=== PATIENT | female | born 1990 | race Caucasian/White ===

== ENCOUNTER 2016-05-19 14:59 | Outpatient (CLI) | payer MEDICAID ==
--- NOTE | 2016-05-19 17:23 | Non Stress Test Report ---
Non Stress Test Datetime Report Generated by CPN: 05/19/2016 17:23 DEMOGRAPHIC EGA NST: 36.3 INDICATION Indication for Study: Ordered by Provider MONITORING Monitor Explained: Monitor Explained; Test Explained; Patient Verbalized Understanding Time on Monitor: 05/19/2016 16:13 Time off Monitor: 05/19/2016 17:19 NST Duration: 66 NST INTERVENTIONS NST Interventions: PO Hydration; Reposition Patient Physician Notified NST: Dr. Calloway BABY A: [id number] BABY A Movement : Present Contraction Frequency : none FHR Baseline : 130 Accelerations : 15X15 Decelerations : None Variability : Moderate 6-25bpm NST Review: Meets Criteria for Reactive NST NST Review and Verified By : Johnson Littlejohn RN NST Results: Reactive NST REPORT Report Trigger: Send Report
--- NOTE | 2016-05-19 20:47 | L&D Discharge Summary ---
OB Discharge Summary Datetime Report Generated by CPN: 05/19/2016 20:47 DISCHARGE DIAGNOSIS Diagnosis/Symptoms: Reassuring Surveillance - Annotate Details Diagnoses/Symptoms Other: IUGR- Not in Labor DIET/ACTIVITY/RESTRICTIONS Diet: Regular Activity: Normal Activity TEACHING/INSTRUCTIONS/REFERRALS Instructions Given To: Pt Instructions Understood: Patient Verbalized Understanding; Support Person Verbalized Understanding Referrals: None Educational Materials- Other: Kick Counts DISCHARGE INFORMATION Discharged AMA: No Discharge Date/Time: 05/19/2016 17:29 Discharged To: Home Discharge Provider Name: DrConchis Calloway Accompanied By: Spouse Discharge Method: Ambulatory Condition: Stable FOLLOW UP INFORMATION Follow Up With: [facility] Follow Up On: As Scheduled Follow Up Phone Number: [facility] -
== END 2016-05-19 17:29 | disposition home or self-care (01) ==
LOC: LC 14:59
PROVIDERS: ATTEND Obstetrics & Gynecology
PROC: 4A1HXCZ Monitoring of Products of Conception, Cardiac Rate, External Approach (ICD-10-PCS; principal; 2016-05-19)
DX: O36.5930 Maternal care for other known or suspected poor fetal growth, third trimester, not applicable or unspecified (principal); Z3A.36 36 weeks gestation of pregnancy
CPT/HCPCS: 59025; 76815

== ENCOUNTER 2016-05-23 07:01 | Inpatient (IN) | payer MEDICAID ==
[2016-05-23] MEDS ORDERED: RINGERS SOLUTION,LACTATED 300 ML IV ONE (07:25)
[2016-05-23] MEDS ORDERED: OXYTOCIN/NORMAL SALINE 1,000 ML IV PRN ×2 (07:25→15:02)
[2016-05-23 08:09] LABS: ABSOLUTE EOSINOPHILS # (AUTO) 0.1 10^3/uL (0.0-0.6); ABSOLUTE LYMPHOCYTES (AUTO) 1.8 10^3/uL (0.5-4.7); ABSOLUTE MONOCYTES (AUTO) 0.5 10^3/uL (0.1-1.4); BASOPHILS % (AUTO) 0.2 % (0-2); EOSINOPHILS % (AUTO) 1.2 % (0-6); HEMATOCRIT 29.1 % (36.0-47.0); HGB HCT DIFFERENCE 0.9; MEAN CORPUSCULAR HEMOGLOBIN 29.3 pg (27.0-33.4); MEAN CORPUSCULAR HGB CONC 34.5 g/dL (32.0-36.0); MEAN CORPUSCULAR VOLUME 85 fl (80-97); MONOCYTES % (AUTO) 6.4 % (3-13); RED BLOOD COUNT 3.42 10^6/uL (3.72-5.28); RED CELL DISTRIBUTION WIDTH 13.2 % (11.5-14.0); SEGMENTED NEUTROPHILS % (AUTO) 71.2 % (42-78); WHITE BLOOD COUNT 8.4 10^3/uL (4.0-10.5)
[2016-05-23] MEDS ORDERED: LIDOCAINE 1% INJ-PF (10 MG/ML) 30 ML SDV ONE (08:37)
[2016-05-23] MEDS ORDERED: MISOPROSTOL 0.2 MG TABLET ONE (08:37)
[2016-05-23] MEDS ORDERED: OXYTOCIN/NORMAL SALINE 20 UNIT/1,000 ML RTUINJ ONE (08:38)
[2016-05-23 09:34] LABS: APPEARANCE,URINE SLIGHTLY-CLOUDY; BILIRUBIN,URINE NEGATIVE (NEGATIVE); GLUCOSE, URINE NEGATIVE (NEGATIVE); KETONES,URINE NEGATIVE (NEGATIVE); LEUKOCYTE ESTERASE,URINE MODERATE (NEGATIVE); NITRITE,URINE NEGATIVE (NEGATIVE); PROTEIN,URINE NEGATIVE (NEGATIVE); URINE SPECIFIC GRAVITY 1.003; UROBILINOGEN,URINE NEGATIVE mg/dL (<2.0)
[2016-05-23 09:54] LABS: URINE BARBITURATES SCREEN NEGATIVE; URINE METHADONE SCREEN NEGATIVE; URINE OPIATES LOW NEGATIVE; URINE PHENCYCLIDINE SCREEN NEGATIVE
--- NOTE | 2016-05-23 10:32 | L&D Progress Notes ---
PROGRESS NOTES Datetime Report Generated by CPN: 05/23/2016 10:31 PROGRESS NOTE Impression Other: IUGR Procedures: Artificial ROM Plan: Induction Informed Consent Obtained: Induction of Labor Comment: cont pit induction VAGINAL EXAM Dilatation: 3 Effacement: 90 Station: -2 MEMBRANES Membranes: Ruptured FETUS A Monitoring: External US FHR Category: Category I SIGNATURE SIGNATURE: ,[id number] SIGNATURE: [id number] Signature: with User ID: [email or web address]
[2016-05-23] MEDS ORDERED: EPHEDRINE SULFATE INJ 50 MG/1 ML AMPULE ONE (10:56)
[2016-05-23] MEDS ORDERED: FENTANYL/BUPIVACAINE/NS/PF 200 MCG/100 ML RTUINJ EPI ONE (10:56)
[2016-05-23] MEDS ORDERED: BUPIVACAINE HCL 0.25 % INJ/PF (2.5 MG/1 ML) 30 ML VIAL ONE (10:57)
[2016-05-23] MEDS: RINGERS SOLUTION,LACTATED 1,000 ML IV PRN ×2 (11:03→11:08)
--- NOTE | 2016-05-23 13:11 | L&D Progress Notes ---
PROGRESS NOTES Datetime Report Generated by CPN: 05/23/2016 13:10 PROGRESS NOTE Impression: Normal Progression of Labor Plan: Continue Present Management; Induction Comment: Pt comfortable with epidural. Pit at 20 mu.-cont. FETUS A FHR Category: Category I FETUS C SIGNATURE: [id number];[id number] Signature: with User ID: [email or web address]
[2016-05-23] MEDS ORDERED: ACETAMINOPHEN WITH CODEINE #3 TABLET PO PRN ×2 (15:02)
[2016-05-23] MEDS ORDERED: ZOLPIDEM TARTRATE 5 MG TABLET PO PRN (15:02)
[2016-05-23] MEDS ORDERED: DIPH/PERTUSS(ACELL)/TETANUS VAC/PF 0.5 ML SYR (>=10YO) IM PRN (15:02)
[2016-05-23] MEDS ORDERED: BENZOCAINE/MENTHOL AEROSOL SPRAY 56 ML TOP PRN (15:02)
[2016-05-23] MEDS ORDERED: DIBUCAINE 1% OINTMENT 28 GM TP PRN (15:02)
[2016-05-23] MEDS ORDERED: MEASLES,MUMPS&RUBELLA VACC/PF 0.5 ML VIAL SUBCUT PRN (15:02)
--- NOTE | 2016-05-23 18:20 | Admission Physical ---
Datetime Report Generated by CPN: 05/23/2016 18:20 CURRENT ADMISSION Hx Assessment: The History has been Reviewed and is Current Chief Complaint: Scheduled Induction of Labor Indication for Induction: IUGR Admit Plan: Initiate Labor Induction Protocol ALLERGIES Medication Allergies: No Medication Allergies: No Known Allergies (05/23/2016) Medication Allergies: No Known Allergies (05/16/2014) Latex: No Latex Allergies OBSTETRICAL HISTORY EDC: 06/13/2016 00:00 : 2 Para: 1 Term: 1 : 0 SAB: 0 IAB: 0 Ectopic: 0 Livin Cesareans: 0 VBACs: 0 Multiple Births: 0 Gestational Diabetes: No Rh Sensitization: No Incompetent Cervix: No NICK: No Infertility: No ART Treatment: No Uterine Anomaly: No IUGR: Yes Hx Previous C/S: No Macrosomia: Yes Hx Loss/Stillborn: No PIH: No Hx : No Placenta Previa/Abruption: No Depression/PP Depression: No PTL/PROM: No Post Hemorrhage: No Current Procedures: Ultrasound; NST SEE RECORDS Alcohol: No Marijuana : No Cocaine: No Other Illicit Drugs: No Cigarettes: Never Smoker. [id number] MEDICAL HISTORY Diabetes: No Blood Transfusion: No Pulmonary Disease (Asthma, TB): No Breast Disease: No Hypertension: No Classer Surgery: No Heart Disease: No Hosp/Surgery: Yes Autoimmune Disorder: No Anesthetic Complications: No Kidney Disease: No Abnormal Pap Smear: No Neuro/Epilepsy: No Psychiatric Disorders: No Other Medical Diseases: No Hepatitis/Liver Disease: No Significant Family History: No Varicosities/Phlebitis: No Trauma/Violence : No Thyroid Dysfunction: No Medical History Comments: CHILDBIRTH INFECTIOUS HISTORY Gonorrhea: No Genital Herpes: No Chlamydia: No Tuberculosis: No Syphilis: No Hepatitis: No HIV/AIDS Exposure: No Rash or Viral Illness: No HPV: No PHYSICAL EXAM General: Normal HEENT: Normal Neurologic: Normal Thyroid: Normal Heart: Normal Lungs: Normal Breast: Normal Back: Normal Abdomen: Normal Genitourinary Exam: Normal Extremities: Normal DTRs: Normal Pelvic Type: Adequate Physical Exam Comments: pelvis proven to 9 pounds VAGINAL EXAM Dilatation: 3 Effacement: 90 Station: -2 MEMBRANES Membranes: Ruptured FETUS A EGA: 37.0 Monitoring: External US FHR Category: Category I Admit Comment: pit induction-epidural when desires PLANS FOR LABOR AND DELIVERY Labor and Delivery: None Pain Management: Epidural Feeding Preference: Breast Benefit of Breast Feed Discussed: Yes Circumcision: N/A INFORMED CONSENT Informed Consent Obtained: Induction of Labor Signature: with User ID: [email or web address]
[2016-05-23] MEDS: FERROUS SULFATE 325 MG TABLET PO SCH (18:32)
[2016-05-23] MEDS: DOCUSATE SODIUM 100 MG CAPSULE PO SCH (18:33)
[2016-05-23] MEDS: IBUPROFEN 800 MG TABLET PO SCH (21:36)
[2016-05-24] MEDS: IBUPROFEN 800 MG TABLET PO SCH ×3 (05:06→21:15)
[2016-05-24 07:35] LABS: HEMATOCRIT 28.2 % (36.0-47.0); HEMOGLOBIN 9.6 g/dL (12.0-15.5); HGB HCT DIFFERENCE 0.6; MEAN CORPUSCULAR HGB CONC 34.1 g/dL (32.0-36.0); MEAN CORPUSCULAR VOLUME 85 fl (80-97); RED BLOOD COUNT 3.31 10^6/uL (3.72-5.28); RED CELL DISTRIBUTION WIDTH 13.2 % (11.5-14.0); WHITE BLOOD COUNT 10.7 10^3/uL (4.0-10.5)
[2016-05-24] MEDS: PRENATAL VITAMIN W-O CA NO5/FE FUMARATE/FA CAPSULE PO SCH (09:18)
[2016-05-24] MEDS: FERROUS SULFATE 325 MG TABLET PO SCH ×2 (09:19→17:39)
[2016-05-24] MEDS: DOCUSATE SODIUM 100 MG CAPSULE PO SCH ×2 (09:19→17:38)
[2016-05-24] MEDS: SENNOSIDES/DOCUSATE 8.6-50 MG 1 EACH TABLET PO SCH (09:19)
--- NOTE | 2016-05-24 09:40 | PDOC PROGRESS REPORT ---
Subjective-OB Subjective: Post Delivery Day: 26 year old. Denies any needs at this time s/p vaginal delivery ff@u-1 mild lochia well offers no complaints anticipate Physical Exam (OB) Vital Signs: Temp Pulse Resp BP Pulse Ox 97.7 F 80 16 121/70 100 05/24/16 08:08 05/24/16 08:08 05/24/16 08:08 05/24/16 08:08 05/24/16 08:08 Intake & Output 05/23/16 05/24/16 05/25/16 06:59 06:59 06:59 Intake Total 500 Balance 500 Weight 74.9 kg - Lochia Lochia Amount: Scant < 10 ml Lochia Color: Rubra/Red - Abdomen Description: Tender, Soft Hernia Present: No Fundal Description: Firm, Midline Fundal Height: u/u - u/2 Objective-Diagnostic Laboratory: 05/24/16 07:08 05/24/16 07:08 WBC 10.7 H RBC 3.31 L Hgb 9.6 L Hct 28.2 L MCV 85 MCH 29.0 MCHC 34.1 RDW 13.2 Plt Count 202
--- NOTE | 2016-05-24 18:01 | L&D General Admission ---
General Admit Datetime Report Generated by CPN: 05/24/2016 18:00 INFORMATION Patient Age: 26 (03/30/2016 08:18:QS system process) EDC: 06/13/2016 00:00 (05/19/2016 15:18:Estelle Mora RN) : 2 (05/19/2016 15:18:KANG Chong) Para: 1 (05/19/2016 15:18:KANG Chong) Term: 1 (05/19/2016 15:18:KANG Chong) : 0 (05/19/2016 15:18:KANG Chong) Spontaneous Abortions: 0 (05/19/2016 15:18:KANG Chong) Induced Abortions: 0 (05/19/2016 15:18:KANG Chong) Livin (05/19/2016 15:18:KANG Chong) Cesareans: 0 (05/19/2016 15:18:KANG Chong) VBACs: 0 (05/19/2016 15:18:Lou Carballo [facility]) Ectopic: 0 (05/19/2016 15:18:[facility], [facility]) Multiple Births: 0 (05/19/2016 15:18:[facility]) Baby, Number in Womb: 1 (05/19/2016 15:18:[facility]) CARE Primary Automatic Shirring Machine Operator: [facility] (05/19/2016 15:18:Estelle Mora RN) Month of 1st Visit: October (05/19/2016 15:18:[facility], [facility]) Adequate Care: Yes (05/19/2016 15:18:Estelle Mora RN) Prepregnancy Weight (lb): 130 (05/19/2016 15:18:Estelle Mora RN) Prepregnancy Weight (kg): 59.1 (05/19/2016 15:18:QS system process) Height (in): 65 (05/23/2016 07:23:QS system process) ALLERGIES Medication Allergy: No (05/19/2016 15:18:Estelle Mora RN) Medication Allergies: No Known Allergies (05/23/2016) (05/23/2016 07:23:QS system process) Latex Allergy: No Latex Allergies (05/19/2016 15:18:Estelle Mora RN) COMMUNICATION Primary Language: Sami (05/19/2016 15:18:Estelle Mora RN) Medical Tx Preferred Language: Sami (05/19/2016 15:18:KANG Chong) Communication Barrier(s): None (05/19/2016 15:18:KANG Chong) DEMOGRAPHICS Address: [facility] [place] [address] (03/30/2016 08:18:QS system process) Zipcode: [address] (03/30/2016 08:18:QS system process) Home (03/30/2016 08:18:QS system process) N: [id number] (03/30/2016 08:18:QS system process) Next of Kin Name: NAVEED MACIAS (03/30/2016 08:18:QS system process) Next of Kin (03/30/2016 08:18:QS system process) Next of Kin Relationship: SPO (03/30/2016 08:18:QS system process) Date of : 1990 (03/30/2016 08:18:QS system process) Marital Status: (03/30/2016 08:18:QS system process) Sex: Female (03/30/2016 08:18:QS system process) Race: (03/30/2016 08:18:QS system process) Ethnicity: Non- or (03/30/2016 08:18:QS system process) Sabianist: Other (03/30/2016 08:18:QS system process) FOB Involved: Yes (05/19/2016 15:18:KANG Chong) DRUG AND ALCOHOL USE Alcohol: No (05/19/2016 15:18:Estelle Mora RN) Cigarettes: Never Smoker. [id number] (05/19/2016 15:18:Estelle Mora RN) Marijuana: No (05/19/2016 15:18:Estelle Mora RN) Cocaine: No (05/19/2016 15:18:Estelle Mora RN) Other Illicit Drugs: No (05/19/2016 15:18:Estelle Mora RN) VACCINE HISTORY Influenza Vaccine: No (05/19/2016 15:18:Estelle Mora RN) Pneumococcal Vaccine: No (05/19/2016 15:18:Estelle Mora RN) Tetanus Vaccine: Yes (05/19/2016 15:18:Estelle Mora RN) Tdap Vaccine: Yes (05/19/2016 15:18:Estelle Mora RN) Hepatitis B Vaccine: Yes (05/19/2016 15:18:Estelle Mora RN) Family Educator: Davin Ortega (05/19/2016 15:18:Estelle Mora RN) Feeding Preference: Breast (05/19/2016 15:18:Estelle Mora RN) Benefit of Breast Feed Discussed: Yes (05/19/2016 15:18:Estelle Mora RN) Circumcision: N/A (05/19/2016 15:18:Estelle Mora RN) Classes Attended: No (05/19/2016 15:18:Estelle Mora RN) Tubal Ligation: No (05/19/2016 15:18:Estelle Mora RN) Tubal Authorization Signed: N/A (05/19/2016 15:18:Estelle Mora RN) Consent: N/A (05/19/2016 15:18:Estelle Mora RN) Consent Signed: N/A (05/19/2016 15:18:Estelle Mora RN) Pain Management Plans: Epidural (05/19/2016 15:18:Estelle Mora RN) Plans for Labor and Delivery: None (05/19/2016 15:18:Estelle Mora RN) Support Person: Naveed Macias (05/19/2016 15:18:Estelle Mora RN) Support Person Relationship: (05/19/2016 15:18:Estelle Mora RN) Cultural/Spritual Practice: No (05/19/2016 15:18:Estelle Mora RN) Spir/Cult Dietary Needs: No (05/19/2016 15:18:Estelle Mora RN) LIVING SITUATION/DISCHARGE PLAN Living Arrangements: House (05/19/2016 15:18:Estelle Mora RN) Adequate Access to:: Electric; Heat; Refrigeration; Plumbing/Running water; Phone; Transportation (05/19/2016 15:18:Estelle Mora RN) WIC Program: Yes (05/19/2016 15:18:Estelle Mora RN) Discharge Corrugator Machine Operator Person: Naveed Macias (05/19/2016 15:18:Estelle Mora RN) Person to Help after Discharge: Naveed Macias (05/19/2016 15:18:Estelle Mora RN) Currently Using Commun Resources: Yes (05/19/2016 15:18:Estelle Mora RN) Outside Agency/Bead Picker: Yes (05/19/2016 15:18:Estelle Mora RN) Car Seat for Discharge: Yes (05/19/2016 15:18:Estelle Mora RN) Adoption Requested: No (05/19/2016 15:18:Estelle Mora RN) Pt Contact w/infant Post : N/A (05/19/2016 15:18:Estelle Mora RN) LABS Blood Type: A Positive (05/19/2016 15:18:Lou Carballo, RN) Antibody Screen: negative (05/19/2016 15:18:Lou Carballo, RN) Hemoglobin: 9.6 L (05/24/2016 07:08:QS system process) Hematocrit: 28.2 L (05/24/2016 07:08:QS system process) MCV: 85 (05/24/2016 07:08:QS system process) Group Beta Strep: negative (05/19/2016 15:18:Lou Carballo RN) Gonorrhea: Negative (05/19/2016 15:18:Lou Carballo, RN) Chlamydia: Negative (05/19/2016 15:18:Lou Carballo, RN) RPR/VDRL: Nonreactive (05/19/2016 15:18:Lou Carballo, RNC) Hepatitis B: Negative (05/19/2016 15:18:Lou Carballo, RN) Rubella: Immune (05/19/2016 15:18:Lou Carballo, RNC) OB/PREVIOUS HISTORY Previous Procedures: Ultrasound; NST (05/19/2016 15:18:Clotilde Sow RN) Current Procedures: Ultrasound; NST (05/19/2016 15:18:Clotilde Sow RN) History of Previous : No (05/19/2016 15:18:Clotilde Sow RN) History of Gestational Diabetes: No (05/19/2016 15:18:Clotilde Sow RN) History of PIH: No (05/19/2016 15:18:Clotilde Sow RN) History of Incompetent Cervix: No (05/19/2016 15:18:Clotilde Sow RN) History of Placenta Previa/Abrup: No (05/19/2016 15:18:Clotilde Sow RN) History of Macrosomia: Yes (05/19/2016 15:18:Clotilde Sow RN) History of IUGR: Yes (05/19/2016 15:18:Clotilde Sow RN) History of Hemorrhage: No (05/19/2016 15:18:Clotilde Sow RN) History of Loss/Stillborn: No (05/19/2016 15:18:Clotilde Sow RN) History of : No (05/19/2016 15:18:Clotilde Sow RN) History of D (Rh) Sensitization: No (05/19/2016 15:18:Clotilde Sow RN) History Recurrent Loss/Stillborn: No (05/19/2016 15:18:Clotilde Sow RN) History Depression/PP Depression: No (05/19/2016 15:18:Clotilde Sow RN) History of Uterine Anomaly/NICK: No (05/19/2016 15:18:Clotilde Sow RN) History of Infertility: No (05/19/2016 15:18:Clotilde Sow RN) History of ART Treatment: No (05/19/2016 15:18:Clotilde Sow RN) History of NICK: No (05/19/2016 15:18:Clotilde Sow RN) MEDICAL HISTORY Med Hx Diabetes: No (05/19/2016 15:18:Clotilde Sow RN) Med Hx Hypertension: No (05/19/2016 15:18:Clotilde Sow RN) Med Hx Heart Disease: No (05/19/2016 15:18:Clotilde Sow RN) Med Hx Autoimmune Disorder: No (05/19/2016 15:18:Clotilde Sow RN) Med Hx Kidney Disease/UTI: No (05/19/2016 15:18:Clotilde Sow RN) Med Hx Neurologic/Epilepsy: No (05/19/2016 15:18:Clotilde Sow RN) Med Hx Psychiatric Disorders: No (05/19/2016 15:18:Clotilde Sow RN) Med Hx Hepatitis/Liver Disease: No (05/19/2016 15:18:Clotilde Sow RN) Med Hx Varicosities/Phlebitis: No (05/19/2016 15:18:Clotilde Sow RN) Med Hx Thyroid Dysfunction: No (05/19/2016 15:18:Clotilde Sow RN) Med Hx Trauma/Violence: No (05/19/2016 15:18:Clotilde Sow RN) Med Hx Blood Transfusion: No (05/19/2016 15:18:Clotilde Sow RN) Med Hx Pulmonary (Asthma,TB): No (05/19/2016 15:18:Clotilde Sow RN) Med Hx Breast: No (05/19/2016 15:18:Clotilde Sow RN) Med Hx CERTIFIED NEURODIAGNOSTIC TECHNOLOGIST Surgery: No (05/19/2016 15:18:Clotilde Sow RN) Med Hx Hospitalization/Surgery: Yes (05/19/2016 15:18:Clotilde Sow RN) Med Hx Anesthetic Complications: No (05/19/2016 15:18:Clotilde Sow RN) Med Hx Abnormal Pap Smear: No (05/19/2016 15:18:Clotilde Sow RN) Other Medical Diseases: No (05/19/2016 15:18:Clotilde Sow RN) Med Hx Significant Family Hx: No (05/19/2016 15:18:Clotilde Sow, YASMANI) Details of Med/Surg Hx: CHILDBIRTH (05/19/2016 15:18:Clotilde Sow RN) INFECTIOUS HISTORY Inf Hx Gonorrhea: No (05/19/2016 15:18:Clotilde Sow RN) Inf Hx Chlamydia: No (05/19/2016 15:18:Clotilde Sow RN) Inf Hx Syphilis: No (05/19/2016 15:18:Clotilde Sow RN) Inf Hx HIV/AIDS: No (05/19/2016 15:18:Clotilde Sow RN) Inf Hx Human Papilloma Virus: No (05/19/2016 15:18:Clotilde Sow RN) Inf Hx Pt/Partner Genital Herpes: No (05/19/2016 15:18:Clotilde Sow RN) Inf Hx Tuberculosis/Exposure: No (05/19/2016 15:18:Clotilde Sow RN) Inf Hx Hepatitis B,C: No (05/19/2016 15:18:Clotilde Sow RN) Inf Hx Rash or Viral Illness: No (05/19/2016 15:18:Clotilde Sow RN) GENETIC HISTORY Gen Hx Age >=35 at [place]: No (05/19/2016 15:18:Clotilde Sow RN) Gen Hx Thalassemia: No (05/19/2016 15:18:Clotilde Sow RN) Gen Hx Congenital Heart Defect: No (05/19/2016 15:18:Clotilde Sow RN) Gen Hx Neural Tube Defect: No (05/19/2016 15:18:Clotilde Sow RN) Gen Hx Down's Syndrome: No (05/19/2016 15:18:Clotilde Sow RN) Gen Hx Chema-Sachs: No (05/19/2016 15:18:Clotilde Sow RN) Gen Hx Roberto: No (05/19/2016 15:18:Clotilde Sow RN) Gen Hx Familial Dysautonomia: No (05/19/2016 15:18:Clotilde Sow RN) Gen Hx Sickle Cell Disease/Trait: No (05/19/2016 15:18:Clotilde Sow RN) Gen Hx Hemophilia/Blood Disorder: No (05/19/2016 15:18:Clotilde Sow RN) Gen Hx Muscular Dystrophy: No (05/19/2016 15:18:Clotilde Sow RN) Gen Hx Cystic Fibrosis: No (05/19/2016 15:18:Clotilde Sow RN) Gen Hx Huntingtons Chorea: No (05/19/2016 15:18:Clotilde Sow RN) Gen Hx Mental Retardation/Autism: No (05/19/2016 15:18:Clotilde Sow RN) Gen Hx Tested for Fragile X: No (05/19/2016 15:18:Clotilde Sow RN) Gen Hx Other Inher/Chromosomal: No (05/19/2016 15:18:Clotilde Swo RN) Gen Hx Maternal Metabolic DO: No (05/19/2016 15:18:Clotilde Sow RN) Gen Hx Pt Father or FOB Defect: No (05/19/2016 15:18:Clotilde Sow RN) Gen Hx Other Genetic History: No (05/19/2016 15:18:Clotilde Sow RN) Gen Hx Drugs/Meds since LMP: No (05/19/2016 15:18:Clotilde Sow RN)
--- NOTE | 2016-05-24 18:02 | L&D General Admission ---
General Admit Datetime Report Generated by CPN: 05/24/2016 18:00 INFORMATION Patient Age: 26 (03/30/2016 08:18:QS system process) EDC: 06/13/2016 00:00 (05/19/2016 15:18:Estelle Mora RN) : 2 (05/19/2016 15:18:KANG Chong) Para: 1 (05/19/2016 15:18:KANG Chong) Term: 1 (05/19/2016 15:18:KANG Chong) : 0 (05/19/2016 15:18:KANG Chong) Spontaneous Abortions: 0 (05/19/2016 15:18:KANG Chong) Induced Abortions: 0 (05/19/2016 15:18:KANG Chong) Livin (05/19/2016 15:18:KANG Chong) Cesareans: 0 (05/19/2016 15:18:KANG Chong) VBACs: 0 (05/19/2016 15:18:Lou Carballo [facility]) Ectopic: 0 (05/19/2016 15:18:[facility], [facility]) Multiple Births: 0 (05/19/2016 15:18:[facility]) Baby, Number in Womb: 1 (05/19/2016 15:18:[facility]) CARE Primary Administration Vice President: [employer] [facility] (05/19/2016 15:18:Estelle Mora RN) Month of 1st Visit: October (05/19/2016 15:18:[facility], [facility]) Adequate Care: Yes (05/19/2016 15:18:Estelle Mora RN) Prepregnancy Weight (lb): 130 (05/19/2016 15:18:Estelle Mora RN) Prepregnancy Weight (kg): 59.1 (05/19/2016 15:18:QS system process) Height (in): 65 (05/23/2016 07:23:QS system process) ALLERGIES Medication Allergy: No (05/19/2016 15:18:Estelle Mora RN) Medication Allergies: No Known Allergies (05/23/2016) (05/23/2016 07:23:QS system process) Latex Allergy: No Latex Allergies (05/19/2016 15:18:Estelle Mora RN) COMMUNICATION Primary Language: Thai (05/19/2016 15:18:Estelle Mora RN) Medical Tx Preferred Language: Thai (05/19/2016 15:18:KANG Chong) Communication Barrier(s): None (05/19/2016 15:18:KANG Chong) DEMOGRAPHICS Address: [facility] [place] [address] (03/30/2016 08:18:QS system process) Zipcode: [address] (03/30/2016 08:18:QS system process) Home (03/30/2016 08:18:QS system process) N: [id number] (03/30/2016 08:18:QS system process) Next of Kin Name: NAVEED MACIAS (03/30/2016 08:18:QS system process) Next of Kin (03/30/2016 08:18:QS system process) Next of Kin Relationship: SPO (03/30/2016 08:18:QS system process) Date of : 1990 (03/30/2016 08:18:QS system process) Marital Status: (03/30/2016 08:18:QS system process) Sex: Female (03/30/2016 08:18:QS system process) Race: (03/30/2016 08:18:QS system process) Ethnicity: Non- or (03/30/2016 08:18:QS system process) Mandaen: Other (03/30/2016 08:18:QS system process) FOB Involved: Yes (05/19/2016 15:18:KANG Chong) DRUG AND ALCOHOL USE Alcohol: No (05/19/2016 15:18:Estelle Mora RN) Cigarettes: Never Smoker. [id number] (05/19/2016 15:18:Estelle Mora RN) Marijuana: No (05/19/2016 15:18:Estelle Mora RN) Cocaine: No (05/19/2016 15:18:Estelle Mora RN) Other Illicit Drugs: No (05/19/2016 15:18:Estelle Mora RN) VACCINE HISTORY Influenza Vaccine: No (05/19/2016 15:18:Estelle Mora RN) Pneumococcal Vaccine: No (05/19/2016 15:18:Estelle Mora RN) Tetanus Vaccine: Yes (05/19/2016 15:18:Estelle Mora RN) Tdap Vaccine: Yes (05/19/2016 15:18:Estelle Mora RN) Hepatitis B Vaccine: Yes (05/19/2016 15:18:Estelle Mora RN) Informatics Specialist: Davin Ortega (05/19/2016 15:18:Estelle Mora RN) Feeding Preference: Breast (05/19/2016 15:18:Estelle Mora RN) Benefit of Breast Feed Discussed: Yes (05/19/2016 15:18:Estelle Mora RN) Circumcision: N/A (05/19/2016 15:18:Estelle Mora RN) Classes Attended: No (05/19/2016 15:18:Estelle Mora RN) Tubal Ligation: No (05/19/2016 15:18:Estelle Mora RN) Tubal Authorization Signed: N/A (05/19/2016 15:18:Estelle Mora RN) Consent: N/A (05/19/2016 15:18:Estelle Mora RN) Consent Signed: N/A (05/19/2016 15:18:Estelle Mora RN) Pain Management Plans: Epidural (05/19/2016 15:18:Estelle Mora RN) Plans for Labor and Delivery: None (05/19/2016 15:18:Estelle Mora RN) Support Person: Naveed Macias (05/19/2016 15:18:Estelle Mora RN) Support Person Relationship: (05/19/2016 15:18:Estelle Mora RN) Cultural/Spritual Practice: No (05/19/2016 15:18:Estelle Mora RN) Spir/Cult Dietary Needs: No (05/19/2016 15:18:Estelle Mora RN) LIVING SITUATION/DISCHARGE PLAN Living Arrangements: House (05/19/2016 15:18:Estelle Mora RN) Adequate Access to:: Electric; Heat; Refrigeration; Plumbing/Running water; Phone; Transportation (05/19/2016 15:18:Estelle Mora RN) WIC Program: Yes (05/19/2016 15:18:Estelle Mora RN) Discharge Engineering Faculty Member Person: Naveed Macias (05/19/2016 15:18:Estelle Mora RN) Person to Help after Discharge: Naveed Macias (05/19/2016 15:18:Estelle Mora RN) Currently Using Commun Resources: Yes (05/19/2016 15:18:Estelle Mora RN) Outside Agency/Hemodialysis Patient Care Specialist: Yes (05/19/2016 15:18:Estelle Mora RN) Car Seat for Discharge: Yes (05/19/2016 15:18:Estelle Mora RN) Adoption Requested: No (05/19/2016 15:18:Estelle Mora RN) Pt Contact w/infant Post : N/A (05/19/2016 15:18:Estelle Mora RN) LABS Blood Type: A Positive (05/19/2016 15:18:Lou Carballo, RN) Antibody Screen: negative (05/19/2016 15:18:Lou Carballo, RN) Hemoglobin: 9.6 L (05/24/2016 07:08:QS system process) Hematocrit: 28.2 L (05/24/2016 07:08:QS system process) MCV: 85 (05/24/2016 07:08:QS system process) Group Beta Strep: negative (05/19/2016 15:18:Lou Carballo RN) Gonorrhea: Negative (05/19/2016 15:18:Lou Carballo, RN) Chlamydia: Negative (05/19/2016 15:18:Lou Carballo, RN) RPR/VDRL: Nonreactive (05/19/2016 15:18:Lou Carballo, RNC) Hepatitis B: Negative (05/19/2016 15:18:Lou Carballo, RN) Rubella: Immune (05/19/2016 15:18:Lou Carballo, RNC) OB/PREVIOUS HISTORY Previous Procedures: Ultrasound; NST (05/19/2016 15:18:Clotilde Sow RN) Current Procedures: Ultrasound; NST (05/19/2016 15:18:Clotilde Sow RN) History of Previous : No (05/19/2016 15:18:Clotilde Sow RN) History of Gestational Diabetes: No (05/19/2016 15:18:Clotilde Sow RN) History of PIH: No (05/19/2016 15:18:Clotilde Sow RN) History of Incompetent Cervix: No (05/19/2016 15:18:Clotilde Sow RN) History of Placenta Previa/Abrup: No (05/19/2016 15:18:Clotilde Sow RN) History of Macrosomia: Yes (05/19/2016 15:18:Clotilde Sow RN) History of IUGR: Yes (05/19/2016 15:18:Clotilde Sow RN) History of Hemorrhage: No (05/19/2016 15:18:Clotilde Sow RN) History of Loss/Stillborn: No (05/19/2016 15:18:Clotilde Sow RN) History of : No (05/19/2016 15:18:Clotilde Sow RN) History of D (Rh) Sensitization: No (05/19/2016 15:18:Clotilde Sow RN) History Recurrent Loss/Stillborn: No (05/19/2016 15:18:Clotilde Sow RN) History Depression/PP Depression: No (05/19/2016 15:18:Clotilde Sow RN) History of Uterine Anomaly/NICK: No (05/19/2016 15:18:Clotilde Sow RN) History of Infertility: No (05/19/2016 15:18:Clotilde Sow RN) History of ART Treatment: No (05/19/2016 15:18:Clotilde Sow RN) History of NICK: No (05/19/2016 15:18:Clotilde Sow RN) MEDICAL HISTORY Med Hx Diabetes: No (05/19/2016 15:18:Clotilde Sow RN) Med Hx Hypertension: No (05/19/2016 15:18:Clotilde Sow RN) Med Hx Heart Disease: No (05/19/2016 15:18:Clotilde Sow RN) Med Hx Autoimmune Disorder: No (05/19/2016 15:18:Clotilde Sow RN) Med Hx Kidney Disease/UTI: No (05/19/2016 15:18:Clotilde Sow RN) Med Hx Neurologic/Epilepsy: No (05/19/2016 15:18:Clotilde Sow RN) Med Hx Psychiatric Disorders: No (05/19/2016 15:18:Coltilde Sow RN) Med Hx Hepatitis/Liver Disease: No (05/19/2016 15:18:Clotilde Sow RN) Med Hx Varicosities/Phlebitis: No (05/19/2016 15:18:Clotilde Sow RN) Med Hx Thyroid Dysfunction: No (05/19/2016 15:18:Clotilde Sow RN) Med Hx Trauma/Violence: No (05/19/2016 15:18:Clotilde Sow RN) Med Hx Blood Transfusion: No (05/19/2016 15:18:Clotilde Sow RN) Med Hx Pulmonary (Asthma,TB): No (05/19/2016 15:18:Clotilde Sow RN) Med Hx Breast: No (05/19/2016 15:18:Clotilde Sow RN) Med Hx COPPER PLATE LITHOGRAPHER Surgery: No (05/19/2016 15:18:Clotilde Sow RN) Med Hx Hospitalization/Surgery: Yes (05/19/2016 15:18:Clotilde Sow RN) Med Hx Anesthetic Complications: No (05/19/2016 15:18:Clotilde Sow RN) Med Hx Abnormal Pap Smear: No (05/19/2016 15:18:Clotilde Sow RN) Other Medical Diseases: No (05/19/2016 15:18:Clotilde Sow RN) Med Hx Significant Family Hx: No (05/19/2016 15:18:Clotilde Sow, YASMANI) Details of Med/Surg Hx: CHILDBIRTH (05/19/2016 15:18:Clotilde Sow RN) INFECTIOUS HISTORY Inf Hx Gonorrhea: No (05/19/2016 15:18:Clotilde Sow RN) Inf Hx Chlamydia: No (05/19/2016 15:18:Clotilde Sow RN) Inf Hx Syphilis: No (05/19/2016 15:18:Clotilde Sow RN) Inf Hx HIV/AIDS: No (05/19/2016 15:18:Clotilde Sow RN) Inf Hx Human Papilloma Virus: No (05/19/2016 15:18:Clotilde Sow RN) Inf Hx Pt/Partner Genital Herpes: No (05/19/2016 15:18:Clotilde Sow RN) Inf Hx Tuberculosis/Exposure: No (05/19/2016 15:18:Clotilde Sow RN) Inf Hx Hepatitis B,C: No (05/19/2016 15:18:Clotilde Sow RN) Inf Hx Rash or Viral Illness: No (05/19/2016 15:18:Clotilde Sow RN) GENETIC HISTORY Gen Hx Age >=35 at [place]: No (05/19/2016 15:18:Clotilde Sow RN) Gen Hx Thalassemia: No (05/19/2016 15:18:Clotilde Sow RN) Gen Hx Congenital Heart Defect: No (05/19/2016 15:18:Clotilde Sow RN) Gen Hx Neural Tube Defect: No (05/19/2016 15:18:Clotilde Sow RN) Gen Hx Down's Syndrome: No (05/19/2016 15:18:Clotilde Sow RN) Gen Hx Chema-Sachs: No (05/19/2016 15:18:Clotilde Sow RN) Gen Hx Roberto: No (05/19/2016 15:18:Clotilde Sow RN) Gen Hx Familial Dysautonomia: No (05/19/2016 15:18:Clotilde Sow RN) Gen Hx Sickle Cell Disease/Trait: No (05/19/2016 15:18:Clotilde Sow RN) Gen Hx Hemophilia/Blood Disorder: No (05/19/2016 15:18:Clotilde Sow RN) Gen Hx Muscular Dystrophy: No (05/19/2016 15:18:Clotilde Sow RN) Gen Hx Cystic Fibrosis: No (05/19/2016 15:18:Clotilde Sow RN) Gen Hx Huntingtons Chorea: No (05/19/2016 15:18:Clotilde Sow RN) Gen Hx Mental Retardation/Autism: No (05/19/2016 15:18:Clotilde Sow RN) Gen Hx Tested for Fragile X: No (05/19/2016 15:18:Clotilde Sow RN) Gen Hx Other Inher/Chromosomal: No (05/19/2016 15:18:Clotilde Sow RN) Gen Hx Maternal Metabolic DO: No (05/19/2016 15:18:Clotilde Sow RN) Gen Hx Pt Father or FOB Defect: No (05/19/2016 15:18:Clotilde Sow RN) Gen Hx Other Genetic History: No (05/19/2016 15:18:Clotilde Sow RN) Gen Hx Drugs/Meds since LMP: No (05/19/2016 15:18:Clotilde Sow RN)
--- NOTE | 2016-05-24 18:16 | L&D Care Plan ---
LD CARE PLANS Datetime Report Generated by CPKosta: 05/24/2016 18:15 Datetime: 05/23/2016 07:29 State: Risk For (KANG Chong) Related To: Labor and Delivery Process; Treatment and Procedures (KANG Chong) Goal(s): Patients Pain will be Assessed and Managed; Patient will Verbalize Adequate Relief of Pain or the Ability to [place] with Current Pain (KANG Chong) Interventions: Assess Pain Severity on Scale of 0 (None) to 5 (Severe); Assess Type, Location and Intensity of Pain Each Time Client Reports Discomfort and Notify Provider if Unusal Pain Develops; Encourage Proper Breathing and Relaxation Techniques; Offer Alternatives Such as Repositioning, Calm Environment, Massages, Diversional Activities, Ice Pack, Splinting, and Ambulation; Administer Analgesics as Ordered; Assist with Epidural Placement as Appropriate; Evaluate Therapeutic Effectiveness of Medication and Treatments (KANG Chong) Outcome: Patient will Report Absence or Relief of Pain Consistent with Established Pain Goal (KANG Chong) Status: Ongoing (KANG Chong) Outcome: Patient will have a Decrease in Signs and Symptoms of Discomfort (Lou Carballo, RN) Status: Ongoing (Lou Carballo, RN) Outcome: Pain will be Controlled During Procedures (Lou Carballo, RN) Status: Ongoing (Lou Carballo, RN) State: Actual (Lou Carballo, RN) Related To: Labor and Delivery Process; Fear of Unknown; Situational Crisis; Medical Interventions; Significant Life Event (Lou Carballo, [facility]) Goal(s): Patient will have Decreased Anxiety and be able to Function at Acceptable Levels (Lou Carballo, RN) Interventions: Assess Verbal and Nonverbal Behavioral Indicators of Anxiety; Assist Patient to Identify and Verbalize Symptoms of Anxiety; Identify and Demonstrate Techniques to Control Anxiety; Assist Patient with Coping Mechanisms to Manage Anxiety; Provide Theraputic Touch for the Patient; Explain to Patient, Using a Calm Reassuring Approach and Nonmedical Terms, All Activities, Procedures, and Concerns; Instruct Patient and Family about Post Discharge Care, Limitations, Symptoms to Report and Resources Available (Lou Carballo, [facility]) Outcome: Patient will Identify, Verbalize and Demonstrate Techniques to Control Anxiety (Lou Carballo, RN) Status: Ongoing (Lou Carballo, RN) Outcome: Patient's Posture, Facial Expressions, Gestures and Activity Level will Reflect Decreased Anxiety (Lou Carballo, RN) Status: Ongoing (Lou Carballo, RN) Outcome: Patient will Verbalize a Sense of Control and/or Acceptance of the Situation (Lou Carballo, RN) Status: Ongoing (Lou Carballo, RN) Outcome: Patient will Identify and Utilize Support Person (Lou Carballo, [facility]) Status: Ongoing (Lou Carballo, RN) Related To: Labor and Delivery Process; Treatment and Procedures; Feeding and Infant Care; Community Resources and Available Support Mechanisms (Lou Carballo, RN) Goal(s): Patient will Accurately Verbalize Understanding of Plan of Care and Treatment; Patient and Family will Accurately Verbalize Understanding of the Disease Process (Lou Carballo, RNC) Interventions: Assess Motivation and Willingness of Patient/Family to Learn; Assess Preferred Learning Mode: One to One Instruction, Reading, Videos, Group Discussion or Demonstration; Assess Barriers to Learning: Pain, Emotional State, Language Barrier, Cognitive Impairment, Visual or Hearing Deficits; Assess Patient and Family Knowledge of Disease Process, Medications and Treatment; Discuss Therapy and/or Treatment Options, Describe Rationale Behind Management, Therapy and Treatment Recommendations; Instruct Patient and Family on Signs and Symptoms to Report; Instruct Patient and Family on Medication Effects and Side Effects; Provide Appropriate and Timely Education Using Multiple Techniques; Provide Patient and Family with Support Group Information and Resources; Give Clear and Thorough Explanations and Demonstrations (Lou Carballo, RN) Outcome: Patient and Family will Verbalize Understanding of Condition, Treatment and Signs and Symptoms to Report (Lou Carballo, RNC) Status: Ongoing (Lou Carballo, RN) Outcome: Patient will Identify Perceived Learning Needs and Express Motivation to Learn (Lou Carballo, RN) Status: Ongoing (Lou Carballo, RN) Outcome: Patient will Verbalize Understanding of Desired Content, and/or Performs Desired Skill Prior to Discharge (Lou Carballo, RN) Status: Ongoing (Lou Carballo, RN) State: Risk For (Lou Carballo, YASMANI) Related To: Prolonged Labor or Induction; Invasive Procedures (Lou Carballo, RN) Goal(s): The Patient will be Free of Infection, Vital Signs Stable and Lab Work within Normal Parameters (Lou Carballo, RN) Interventions: Instruct and Reinforce Proper Handwashing, Hygiene, and Care Techniques to Patient and Family; Monitor Vital Signs; Monitor Patient for the Following Signs of Infection: Fever, Abdominal Tenderness, Unusual Discharge; Monitor Aminiotic Fluid, Urine and Lochia for Color and Odor; Observe Wounds, Incisions and Invasive Line Sites for Redness, Drainage and Edema; Assess IV Sites per Hospital Policy; Monitor Lab and Test Results and Notify Provider of Abnormal Findings; Assess Nutritional Status and Promote Good Nutrition (Lou Carballo, RN) Outcome: Patient will Remain Free of Infection (Lou Carballo, RN) Status: Ongoing (Lou Carballo, RN) Outcome: Infection will be Recognized Early to Allow for Prompt Treatment (Lou Carballo, RN) Status: Ongoing (Lou Carballo, RN) Outcome: Patient will have Vital Signs Within Expected Range (Lou Carballo, RN) Status: Ongoing (Lou Carballo, RN) Related To: Prolonged Labor or Induction (Lou Carballo, RN) Goal(s): Patient will Achieve and Maintain a Balanced Fluid Volume Status; Hemodynamically Stable (Lou Carballo, RN) Interventions: Monitor Vital Signs; Auscultate Breath Sounds; Monitor Patient for Skin Turgor, Mucous Membranes, Dry Skin, Weakness, Headaches and Confusion; Provide Oral Fluids as Ordered; Initiate and Maintain Intravenous Fluids as Ordered; Monitor Intake and Output as Indicated Per Patient Status; Accurately Measure Blood Loss; Monitor Lab and Test Results as Obtained and Notify Provider of Abnormal Findings; Monitor Patient's Weight (Lou Carballo, RN) Outcome: Patient will have Clear Lung Sounds (Lou Carballo, RN) Status: Ongoing (Lou Carballo, RN) Outcome: Patient will have Vital Signs within Expected Range (Lou Carballo, RN) Status: Ongoing (Lou Carballo, RN) Outcome: Urine Output will be within Expected Range (Lou Haris, RN) Status: Ongoing (Lou Carballo, RN) Outcome: Patient will have Minimal Generalized or Upper Extremity Edema (Lou Carballo, RN) Status: Ongoing (Lou Carballo, RN) State: Risk For (Lou Carballo, RN) Related To: Vaginal Delivery; Invasive Procedures (Lou Carballo, RN) Goal(s): Patient will Maintain Optimal Skin Integrity, Free of Breakdown, Injury or Infection (Lou Carballo, RN) Interventions: Complete Screening for Pressure Ulcer Risk and Initiate Protocol per Hospital Policy; Monitor Site of Skin Impairment for Color Changes, Redness, Swelling, Warmth, Pain or Other Signs of Infection; Encourage and Assist with Position Changes; Monitor Patient's Mobility Status; Provide Adequate Nutrition and Fluids; Teach Patient Appropriate Hygienic Care; Teach Patient/Family Skin Care Management (Lou Carballo, RN) Outcome: Patient will not have Evidence of Injury Such as Skin Breakdown, Scrapes, Cuts, or Bruising (Lou Carballo, RN) Status: Ongoing (Lou Carballo, RN) Outcome: Patient will Report Any Altered Sensation or Pain at Site of Skin Impairment (Lou Carballo, RN) Status: Ongoing (Lou Carballo, RN) Outcome: Patients Incisions and Wounds will be without Signs or Symptoms of Infection (Lou Carballo, RN) Status: Ongoing (Lou Carballo, RNC) Outcome: Patient will Demonstrate Understanding of Plan to Heal Skin and Prevent Reinjury and Verbalize Risk Factors (Lou Carballo, RN) Status: Ongoing (Lou Carballo, RN) State: Actual (Lou Carballo, RN) Related To: ; (Lou Carballo, RNC) Goal(s): Patient will have an Intake of Nutrients Sufficient to Meet Metabolic Needs (Lou Camp, RNC) Interventions: Nutritional Screening and Assessment per Hospital Policy; Consult Industrial Ecology Technician for Further Assessment and Recommendations Regarding Food Preferences and Nutritional Support; Allow Patient to Plan and Order Diet when Possible; Monitor Laboratory Values That Indicate Nutritional Well-being; Consult Bioinformatics Programmer for Nutritional Support Regarding Requirements; Document Actual Weight Initially and Weekly (Do Not Estimate); Encourage Patient Participation in Maintaining a Food Log as Indicated; Educate Patient on the Importance of Maintaining an Adequate Caloric Intake (KANG Chong) Outcome: Patient will Receive Adequate Calories and Fluid Volume to Meet Metabolic Needs (KANG Chong) Status: Ongoing (KANG Chong) Outcome: Patient will Select Foods or Meals that Support Adequate Nutrition (KANG Chong) Status: Ongoing (KANG Chong)
--- NOTE | 2016-05-24 20:21 | L&D Current Admission ---
Current Admit Datetime Report Generated by CPN: 05/24/2016 20:20 ADMISSION INFORMATION Current Admit Date/Time: 05/23/2016 07:17 (05/23/2016 08:32:Clotilde Sow RN) Reason for Admission: Induction of Labor (05/23/2016 08:32:Clotilde Sow RN) Chief Complaint: Scheduled Induction of Labor (05/23/2016 08:46:Clotilde Sow RN) EGA per Dates: 37.0 (05/23/2016 08:32:QS system process) Method of Arrival: Ambulatory (05/23/2016 08:32:Clotilde Sow RN) Reason for Induction: Intrauterine Growth Retardation (05/23/2016 08:32:Clotilde Sow RN) Records Available: Yes (05/23/2016 08:32:Clotilde Sow RN) General Admission Information: Reviewed (05/23/2016 08:32:Clotilde Sow RN) BELONGINGS/ADVANCED DIRECTIVES Valuables/Personal Effects: Cell Phone (05/23/2016 08:32:Clotilde Sow RN) Other Belongings: SEE VALUABLES CONSENT (05/23/2016 08:32:Clotilde Sow RN) Disposition of Belongings: Kept with Patient (05/23/2016 08:32:Clotilde Sow RN) Advance Direct for Healthcare: No, and Wants No Information (05/23/2016 08:32:Clotilde Sow RN) Indicate Intent if Not With Pt: RECEIVED IN REGISTRATION (05/23/2016 08:32:Clotilde Sow RN) Durable Power of Casting House Laborer: No (05/23/2016 08:32:Clotilde Sow RN) Living Will: No (05/23/2016 08:32:Clotilde Sow RN) Organ Donor: Yes (05/23/2016 08:32:Clotilde Sow RN) Pt Rights Information Given: Yes (05/23/2016 08:32:Clotilde Sow RN) Pt Understands Pt Rights: Yes (05/23/2016 08:32:Clotilde Sow RN) LEARNING ASSESSMENT Knowledge Level: Understands L_D Process; Understands Care Activities; Had Pre-Hospital Education; Understands Diagnosis (05/23/2016 08:32:Clotilde Sow RN) Barriers to Learning: None (05/23/2016 08:32:Clotilde Sow RN) Learning Readiness: Motivated (05/23/2016 08:32:Clotilde Sow RN) Learns Best By: 1 to 1 Instruction; Reading; Videos; Demonstration (05/23/2016 08:32:Clotilde Sow RN) Learning Needs: Labor and Delivery Process; Pain Management; Symptoms to Report; Treatment Plan; Medication; Diagnosis; Nutrition; Equipment; Infant Care; Community Resources (05/23/2016 08:32:Clotilde Sow RN) DOMESTIC VIOLANCE SCREENING Dom Viol Threatened/Hurt: No (05/23/2016 08:32:Clotilde Sow RN) Hx of Abuse/Neglect past 2yrs: No (05/23/2016 08:32:Clotilde Sow RN) Feel Unsafe Going Home: No (05/23/2016 08:32:Clotilde Sow RN) Addt'l Observ Indicating Abuse: No (05/23/2016 08:32:Clotilde Sow RN) Considered Personal Harm/Suicide: No (05/23/2016 08:32:Clotilde Sow RN) NUTRITIONAL/FUNCTIONAL SCREENING Problem with Appetite >5 Days: No (05/23/2016 08:32:Clotilde Sow RN) Chew/Swallow Difficulties: No (05/23/2016 08:32:Clotilde Sow RN) Inappropriate Wt Gain/Loss: No (05/23/2016 08:32:Clotilde Sow RN) Presence Skin Breakdown/Ulcer: No (05/23/2016 08:32:Clotilde Sow RN) Special Diet: No (05/23/2016 08:32:Clotilde Sow RN) Pt Requests District Associate Judge Visit: No (05/23/2016 08:32:Clotilde Sow RN) Hx of Any of the Following?: N/A (05/23/2016 08:32:Clotilde Sow RN) New Diagnosis of: N/A (05/23/2016 08:32:Clotilde Sow RN) Requires Assist w/Ambulation: No (05/23/2016 08:32:Clotilde Sow RN) Uses Assist Device to Ambulate: No (05/23/2016 08:32:Clotilde Sow RN) Pt Requires Help w/ADL's: No (05/23/2016 08:32:Clotilde Sow RN)
--- NOTE | 2016-05-24 20:22 | Delivery Summary ---
Del Sum A-C Datetime Report Generated by CPN: 05/24/2016 20:20 DELIVERY PERSONNEL DELIVERY PERSONNEL: [id number] Delivery Doctor:: Michelle Lucio MD Labor and Delivery Nurse:: Clotilde Sow RN Labor and Delivery Nurse:: KANG Chong Nursery Nurse:: Daphney Chiang RN Student Observers:: Jessica [facility] Salud [employer] Commercial Airplane Pilot/LICENSE ISSUER: Carole Reddy CNA II MATERNAL INFORMATION Delivery Anesthesia: Epidural Medications After Delivery: Pitocin Bolus-Please Comment; Pitocin Drip 20 Units/1000ml NSS Estimated Blood Loss (ml): 300 Maternal Complications: None Provider Comments: Pt progressed to over intact perineum of female infant with apgars 9 and 9. Head delivered OA. Shoulders and body delivered easily. MODEL MAKER FIBERGLASS/OP bulb suctioned. COrd clamped and cut. Placenta spont and intact. Mom and baby doing well. LABOR SUMMARY EDC: 06/13/2016 00:00 No. Babies in Womb: 1 Attempted: No Labor Anesthesia: Epidural LABOR INFORMATION Reason for Induction: Intrauterine Growth Retardation Onset of Labor: 05/23/2016 10:25 Complete Dilatation: 05/23/2016 14:37 Oxytocin: Induction Group B Beta Strep: negative Antibiotics # of Doses: 0 Steroids Given: None Reason Steroids Not Administered: Not Applicable MEMBRANES Membranes Rupture Method: Artificial Rupture of Membranes: 05/23/2016 10:25 Length of Rupture (hr): 4.35 Amniotic Fluid Color: Clear Amniotic Fluid Amount: Small Amniotic Fluid Odor: None STAGES OF LABOR Stage 1 hr: 4 Stage 1 min: 12 Stage 2 hr: 0 Stage 2 min: 9 Stage 3 hr: 0 Stage 3 min: 4 Total Time in Labor hr: 4 Total Time in Labor min: 25 VAGINAL DELIVERY Episiotomy: None Laceration Extension: N/A Laceration Type: None Laceration Repair: Not Applicable Sponge Count Correct: N/A Sharps Count Correct: N/A CSECTION DELIVERY Primary Indication: N/A Secondary Indication: N/A CSection Incidence: N/A Labor: N/A Elective: N/A CSection Incision: N/A BABY A INFORMATION Infant Delivery Date/Time: 05/23/2016 14:46 Method of Delivery: Vaginal Born in Route : No : N/A Forceps: N/A Vacuum Extraction: Successful Shoulder Dystocia : No PRESENTATION/POSITION BABY A Presentation: Cephalic Cephalic Presentation: Vertex Vertex Position: Right Occipital Anterior Breech Presentation: N/A PLACENTA INFORMATION BABY A Placenta Delivery Time : 05/23/2016 14:50 Placenta Method of Delivery: Spontaneous Placenta Status: Delivered SCORES BABY A Heart Rate 1 min: >100 bpm Resp Effort 1 min: Good Cry Reflex Irritability 1 min: Cough or Sneeze or Pulls Away Muscle Tone 1 min: Active Motion Color 1 min: Body [place], Extremities Blue Resuscitation Effort 1 min: Tactile Stimulation SCORE 1 MIN: 9 Heart Rate 5 min: >100 bpm Resp Effort 5 min: Good Cry Reflex Irritability 5 min: Cough or Sneeze or Pulls Away Muscle Tone 5 min: Active Motion Color 5 min: Body [place], Extremities Blue Resuscitation Effort 5 min: N/A SCORE 5 MIN: 9 Resuscitation Effort 10 min: N/A INFORMATION BABY A Gestational Age at Delivery: 37.0 Gestational Status: Early Term- 37- 38.6 Weeks Infant Outcome : Liveborn Infant Condition : Stable Infant Sex: Female IDENTIFICATION BABY A Infant Verification Date/Time: 05/23/2016 14:59 ID Band Number: [id number] Mother's Name Verified: Yes Infant RN Verifying : A Samra RN Additional Verifying Personnel: S [place] RNC WEIGHT/LENGTH BABY A Birthweight (gm): 2713 Weight (lb): 6 Weight (oz): 0 Infant Length (in): 18.00 Length (cm): 45.72 CORD INFORMATION BABY A No. Cord Vessels: 3 Nuchal Cord : N/A Cord Blood Taken: Yes-For Eval (Mom's Blood Type - or O+) Suction: None ASSESSMENT BABY A Infant Complications: None Physical Findings at Delivery: Puncture Wound from Scalp Electrode Infant Respirations: Appears Normal Skin to Skin: Yes Skin to Skin Time (min): 60 Remelt Operator/ALS Called : No Infant Care By: E Андрей RNC Transferred To: Remains with Mother BABY B INFORMATION : N/A SIGNATURES Signature: with User ID: [email or web address]
--- NOTE | 2016-05-24 20:22 | L&D General Admission ---
General Admit Datetime Report Generated by CPN: 05/24/2016 20:20 INFORMATION Patient Age: 26 (03/30/2016 08:18:QS system process) EDC: 06/13/2016 00:00 (05/19/2016 15:18:Estelle Mora RN) : 2 (05/19/2016 15:18:KANG Chong) Para: 1 (05/19/2016 15:18:KANG Chong) Term: 1 (05/19/2016 15:18:KANG Chong) : 0 (05/19/2016 15:18:KANG Chong) Spontaneous Abortions: 0 (05/19/2016 15:18:KANG Chong) Induced Abortions: 0 (05/19/2016 15:18:KANG Chong) Livin (05/19/2016 15:18:KANG Chong) Cesareans: 0 (05/19/2016 15:18:KANG Chong) VBACs: 0 (05/19/2016 15:18:Lou Carballo [facility]) Ectopic: 0 (05/19/2016 15:18:[facility], [facility]) Multiple Births: 0 (05/19/2016 15:18:[facility]) Baby, Number in Womb: 1 (05/19/2016 15:18:[facility]) CARE Primary Fishing Tackle Repairer: [employer] [facility] (05/19/2016 15:18:Estelle Mora RN) Month of 1st Visit: October (05/19/2016 15:18:[facility], [facility]) Adequate Care: Yes (05/19/2016 15:18:Estelle Mora RN) Prepregnancy Weight (lb): 130 (05/19/2016 15:18:Estelle Mora RN) Prepregnancy Weight (kg): 59.1 (05/19/2016 15:18:QS system process) Height (in): 65 (05/23/2016 07:23:QS system process) ALLERGIES Medication Allergy: No (05/19/2016 15:18:Estelle Mora RN) Medication Allergies: No Known Allergies (05/23/2016) (05/23/2016 07:23:QS system process) Latex Allergy: No Latex Allergies (05/19/2016 15:18:Estelle Mora RN) COMMUNICATION Primary Language: Romansh (05/19/2016 15:18:Estelle Mora RN) Medical Tx Preferred Language: Romansh (05/19/2016 15:18:KANG Chong) Communication Barrier(s): None (05/19/2016 15:18:KANG Chong) DEMOGRAPHICS Address: [facility] [place] [address] (03/30/2016 08:18:QS system process) Zipcode: [address] (03/30/2016 08:18:QS system process) Home (03/30/2016 08:18:QS system process) N: [id number] (03/30/2016 08:18:QS system process) Next of Kin Name: NAVEED MACIAS (03/30/2016 08:18:QS system process) Next of Kin (03/30/2016 08:18:QS system process) Next of Kin Relationship: SPO (03/30/2016 08:18:QS system process) Date of : 1990 (03/30/2016 08:18:QS system process) Marital Status: (03/30/2016 08:18:QS system process) Sex: Female (03/30/2016 08:18:QS system process) Race: (03/30/2016 08:18:QS system process) Ethnicity: Non- or (03/30/2016 08:18:QS system process) Scientologist: Other (03/30/2016 08:18:QS system process) FOB Involved: Yes (05/19/2016 15:18:KANG Chong) DRUG AND ALCOHOL USE Alcohol: No (05/19/2016 15:18:Estelle Mora RN) Cigarettes: Never Smoker. [id number] (05/19/2016 15:18:Estelle Mora RN) Marijuana: No (05/19/2016 15:18:Estelle Mora RN) Cocaine: No (05/19/2016 15:18:Estelle Mora RN) Other Illicit Drugs: No (05/19/2016 15:18:Estelle Mora RN) VACCINE HISTORY Influenza Vaccine: No (05/19/2016 15:18:Estelle Mora RN) Pneumococcal Vaccine: No (05/19/2016 15:18:Estelle Mora RN) Tetanus Vaccine: Yes (05/19/2016 15:18:Estelle Mora RN) Tdap Vaccine: Yes (05/19/2016 15:18:Estelle Mora RN) Hepatitis B Vaccine: Yes (05/19/2016 15:18:Estelle Mora RN) Log Operations Coordinator: Davin Ortega (05/19/2016 15:18:Estelle Mora RN) Feeding Preference: Breast (05/19/2016 15:18:Estelle Mora RN) Benefit of Breast Feed Discussed: Yes (05/19/2016 15:18:Estelle Mora RN) Circumcision: N/A (05/19/2016 15:18:Estelle Mora RN) Classes Attended: No (05/19/2016 15:18:Estelle Mora RN) Tubal Ligation: No (05/19/2016 15:18:Estelle Mora RN) Tubal Authorization Signed: N/A (05/19/2016 15:18:Etselle Mora RN) Consent: N/A (05/19/2016 15:18:Estelle Mora RN) Consent Signed: N/A (05/19/2016 15:18:Estelle Mora RN) Pain Management Plans: Epidural (05/19/2016 15:18:Estelle Mora RN) Plans for Labor and Delivery: None (05/19/2016 15:18:Estelle Mora RN) Support Person: Naveed Macias (05/19/2016 15:18:Estelle Mora RN) Support Person Relationship: (05/19/2016 15:18:Estelle Mora RN) Cultural/Spritual Practice: No (05/19/2016 15:18:Estelle Mora RN) Spir/Cult Dietary Needs: No (05/19/2016 15:18:Estelle Mora RN) LIVING SITUATION/DISCHARGE PLAN Living Arrangements: House (05/19/2016 15:18:Estelle Mora RN) Adequate Access to:: Electric; Heat; Refrigeration; Plumbing/Running water; Phone; Transportation (05/19/2016 15:18:Estelle Mora RN) WIC Program: Yes (05/19/2016 15:18:Estelle Mora RN) Discharge Rod Welder Person: Naveed Macias (05/19/2016 15:18:Estelle Mora RN) Person to Help after Discharge: Naveed Macias (05/19/2016 15:18:Estelle Mora RN) Currently Using Commun Resources: Yes (05/19/2016 15:18:Estelle Mora RN) Outside Agency/Keg Filler: Yes (05/19/2016 15:18:Estelel Mora RN) Car Seat for Discharge: Yes (05/19/2016 15:18:Estelle Mora RN) Adoption Requested: No (05/19/2016 15:18:Estelle Mora RN) Pt Contact w/infant Post : N/A (05/19/2016 15:18:Estelle Mora RN) LABS Blood Type: A Positive (05/19/2016 15:18:Lou Carballo, RN) Antibody Screen: negative (05/19/2016 15:18:Lou Carballo, RN) Hemoglobin: 9.6 L (05/24/2016 07:08:QS system process) Hematocrit: 28.2 L (05/24/2016 07:08:QS system process) MCV: 85 (05/24/2016 07:08:QS system process) Group Beta Strep: negative (05/19/2016 15:18:Lou Carballo RN) Gonorrhea: Negative (05/19/2016 15:18:Lou Carballo, RN) Chlamydia: Negative (05/19/2016 15:18:Lou Carballo, RN) RPR/VDRL: Nonreactive (05/19/2016 15:18:Lou Carballo, RNC) Hepatitis B: Negative (05/19/2016 15:18:Lou Carballo, RN) Rubella: Immune (05/19/2016 15:18:Lou Carballo, RNC) OB/PREVIOUS HISTORY Previous Procedures: Ultrasound; NST (05/19/2016 15:18:Clotilde Sow RN) Current Procedures: Ultrasound; NST (05/19/2016 15:18:Clotilde Sow RN) History of Previous : No (05/19/2016 15:18:Clotilde Sow RN) History of Gestational Diabetes: No (05/19/2016 15:18:Clotilde Sow RN) History of PIH: No (05/19/2016 15:18:Clotilde Sow RN) History of Incompetent Cervix: No (05/19/2016 15:18:Clotilde Sow RN) History of Placenta Previa/Abrup: No (05/19/2016 15:18:Clotilde Sow RN) History of Macrosomia: Yes (05/19/2016 15:18:Clotilde Sow RN) History of IUGR: Yes (05/19/2016 15:18:Clotilde Sow RN) History of Hemorrhage: No (05/19/2016 15:18:Clotilde Sow RN) History of Loss/Stillborn: No (05/19/2016 15:18:Clotilde Sow RN) History of : No (05/19/2016 15:18:Clotilde Sow RN) History of D (Rh) Sensitization: No (05/19/2016 15:18:Clotilde Sow RN) History Recurrent Loss/Stillborn: No (05/19/2016 15:18:Clotilde Sow RN) History Depression/PP Depression: No (05/19/2016 15:18:Clotilde Sow RN) History of Uterine Anomaly/NICK: No (05/19/2016 15:18:Clotilde Sow RN) History of Infertility: No (05/19/2016 15:18:Clotilde Sow RN) History of ART Treatment: No (05/19/2016 15:18:Clotilde Sow RN) History of NICK: No (05/19/2016 15:18:Clotilde Sow RN) MEDICAL HISTORY Med Hx Diabetes: No (05/19/2016 15:18:Clotilde Sow RN) Med Hx Hypertension: No (05/19/2016 15:18:Clotilde Sow RN) Med Hx Heart Disease: No (05/19/2016 15:18:Clotilde Sow RN) Med Hx Autoimmune Disorder: No (05/19/2016 15:18:Clotilde Sow RN) Med Hx Kidney Disease/UTI: No (05/19/2016 15:18:Clotilde Sow RN) Med Hx Neurologic/Epilepsy: No (05/19/2016 15:18:Clotilde Sow RN) Med Hx Psychiatric Disorders: No (05/19/2016 15:18:Clotilde Sow RN) Med Hx Hepatitis/Liver Disease: No (05/19/2016 15:18:Clotilde oSw RN) Med Hx Varicosities/Phlebitis: No (05/19/2016 15:18:Clotilde Sow RN) Med Hx Thyroid Dysfunction: No (05/19/2016 15:18:Clotilde Sow RN) Med Hx Trauma/Violence: No (05/19/2016 15:18:Clotilde Sow RN) Med Hx Blood Transfusion: No (05/19/2016 15:18:Clotilde Sow RN) Med Hx Pulmonary (Asthma,TB): No (05/19/2016 15:18:Clotilde Sow RN) Med Hx Breast: No (05/19/2016 15:18:Clotilde Sow RN) Med Hx LAB ENGINEER Surgery: No (05/19/2016 15:18:Clotilde Sow RN) Med Hx Hospitalization/Surgery: Yes (05/19/2016 15:18:Clotilde Sow RN) Med Hx Anesthetic Complications: No (05/19/2016 15:18:Clotilde Sow RN) Med Hx Abnormal Pap Smear: No (05/19/2016 15:18:Clotilde Sow RN) Other Medical Diseases: No (05/19/2016 15:18:Clotilde Sow RN) Med Hx Significant Family Hx: No (05/19/2016 15:18:Clotilde Sow, YASMANI) Details of Med/Surg Hx: CHILDBIRTH (05/19/2016 15:18:Clotilde Sow RN) INFECTIOUS HISTORY Inf Hx Gonorrhea: No (05/19/2016 15:18:Clotilde Sow RN) Inf Hx Chlamydia: No (05/19/2016 15:18:Clotilde Sow RN) Inf Hx Syphilis: No (05/19/2016 15:18:Clotilde Sow RN) Inf Hx HIV/AIDS: No (05/19/2016 15:18:Clotilde Sow RN) Inf Hx Human Papilloma Virus: No (05/19/2016 15:18:Clotilde Sow RN) Inf Hx Pt/Partner Genital Herpes: No (05/19/2016 15:18:Clotilde Sow RN) Inf Hx Tuberculosis/Exposure: No (05/19/2016 15:18:Clotilde Sow RN) Inf Hx Hepatitis B,C: No (05/19/2016 15:18:Clotilde Sow RN) Inf Hx Rash or Viral Illness: No (05/19/2016 15:18:Clotilde Sow RN) GENETIC HISTORY Gen Hx Age >=35 at [place]: No (05/19/2016 15:18:Clotilde Sow RN) Gen Hx Thalassemia: No (05/19/2016 15:18:Clotilde Sow RN) Gen Hx Congenital Heart Defect: No (05/19/2016 15:18:Clotilde Sow RN) Gen Hx Neural Tube Defect: No (05/19/2016 15:18:Clotilde Sow RN) Gen Hx Down's Syndrome: No (05/19/2016 15:18:Clotilde Sow RN) Gen Hx Chema-Sachs: No (05/19/2016 15:18:Clotilde Sow RN) Gen Hx Roberto: No (05/19/2016 15:18:Clotilde Sow RN) Gen Hx Familial Dysautonomia: No (05/19/2016 15:18:Clotilde Sow RN) Gen Hx Sickle Cell Disease/Trait: No (05/19/2016 15:18:Clotilde Sow RN) Gen Hx Hemophilia/Blood Disorder: No (05/19/2016 15:18:Clotilde Sow RN) Gen Hx Muscular Dystrophy: No (05/19/2016 15:18:Clotilde Sow RN) Gen Hx Cystic Fibrosis: No (05/19/2016 15:18:Clotilde Sow RN) Gen Hx Huntingtons Chorea: No (05/19/2016 15:18:Clotilde Sow RN) Gen Hx Mental Retardation/Autism: No (05/19/2016 15:18:Clotilde Sow RN) Gen Hx Tested for Fragile X: No (05/19/2016 15:18:Clotilde Sow RN) Gen Hx Other Inher/Chromosomal: No (05/19/2016 15:18:Clotilde Sow RN) Gen Hx Maternal Metabolic DO: No (05/19/2016 15:18:Clotilde Sow RN) Gen Hx Pt Father or FOB Defect: No (05/19/2016 15:18:Clotilde Sow RN) Gen Hx Other Genetic History: No (05/19/2016 15:18:Clotilde Sow RN) Gen Hx Drugs/Meds since LMP: No (05/19/2016 15:18:Clotilde Sow RN)
--- NOTE | 2016-05-24 20:22 | L&D Care Plan ---
LD CARE PLANS Datetime Report Generated by CPKosta: 05/24/2016 20:20 Datetime: 05/23/2016 07:29 State: Risk For (KANG Chong) Related To: Labor and Delivery Process; Treatment and Procedures (KANG Chong) Goal(s): Patients Pain will be Assessed and Managed; Patient will Verbalize Adequate Relief of Pain or the Ability to [place] with Current Pain (KANG Chong) Interventions: Assess Pain Severity on Scale of 0 (None) to 5 (Severe); Assess Type, Location and Intensity of Pain Each Time Client Reports Discomfort and Notify Provider if Unusal Pain Develops; Encourage Proper Breathing and Relaxation Techniques; Offer Alternatives Such as Repositioning, Calm Environment, Massages, Diversional Activities, Ice Pack, Splinting, and Ambulation; Administer Analgesics as Ordered; Assist with Epidural Placement as Appropriate; Evaluate Therapeutic Effectiveness of Medication and Treatments (KANG Chong) Outcome: Patient will Report Absence or Relief of Pain Consistent with Established Pain Goal (KANG Chong) Status: Ongoing (KANG Chong) Outcome: Patient will have a Decrease in Signs and Symptoms of Discomfort (Lou Carballo, RN) Status: Ongoing (Lou Carballo, RN) Outcome: Pain will be Controlled During Procedures (Lou Carballo, RN) Status: Ongoing (Lou Carballo, RN) State: Actual (Lou Carballo, RN) Related To: Labor and Delivery Process; Fear of Unknown; Situational Crisis; Medical Interventions; Significant Life Event (Lou aCrballo, [facility]) Goal(s): Patient will have Decreased Anxiety and be able to Function at Acceptable Levels (Lou Carballo, RN) Interventions: Assess Verbal and Nonverbal Behavioral Indicators of Anxiety; Assist Patient to Identify and Verbalize Symptoms of Anxiety; Identify and Demonstrate Techniques to Control Anxiety; Assist Patient with Coping Mechanisms to Manage Anxiety; Provide Theraputic Touch for the Patient; Explain to Patient, Using a Calm Reassuring Approach and Nonmedical Terms, All Activities, Procedures, and Concerns; Instruct Patient and Family about Post Discharge Care, Limitations, Symptoms to Report and Resources Available (Lou Carballo, [facility]) Outcome: Patient will Identify, Verbalize and Demonstrate Techniques to Control Anxiety (Lou Carballo, RN) Status: Ongoing (Lou Carballo, RN) Outcome: Patient's Posture, Facial Expressions, Gestures and Activity Level will Reflect Decreased Anxiety (Lou Carballo, RN) Status: Ongoing (Lou Carballo, RN) Outcome: Patient will Verbalize a Sense of Control and/or Acceptance of the Situation (Lou Carballo, RN) Status: Ongoing (Lou Carballo, RN) Outcome: Patient will Identify and Utilize Support Person (Lou Carballo, [facility]) Status: Ongoing (Lou Carballo, RN) Related To: Labor and Delivery Process; Treatment and Procedures; Feeding and Infant Care; Community Resources and Available Support Mechanisms (Lou Carballo, RN) Goal(s): Patient will Accurately Verbalize Understanding of Plan of Care and Treatment; Patient and Family will Accurately Verbalize Understanding of the Disease Process (Lou Carballo, RNC) Interventions: Assess Motivation and Willingness of Patient/Family to Learn; Assess Preferred Learning Mode: One to One Instruction, Reading, Videos, Group Discussion or Demonstration; Assess Barriers to Learning: Pain, Emotional State, Language Barrier, Cognitive Impairment, Visual or Hearing Deficits; Assess Patient and Family Knowledge of Disease Process, Medications and Treatment; Discuss Therapy and/or Treatment Options, Describe Rationale Behind Management, Therapy and Treatment Recommendations; Instruct Patient and Family on Signs and Symptoms to Report; Instruct Patient and Family on Medication Effects and Side Effects; Provide Appropriate and Timely Education Using Multiple Techniques; Provide Patient and Family with Support Group Information and Resources; Give Clear and Thorough Explanations and Demonstrations (Lou Carballo, RN) Outcome: Patient and Family will Verbalize Understanding of Condition, Treatment and Signs and Symptoms to Report (Lou Carballo, RNC) Status: Ongoing (Lou Carballo, RN) Outcome: Patient will Identify Perceived Learning Needs and Express Motivation to Learn (Lou Carballo, RN) Status: Ongoing (Lou Carballo, RN) Outcome: Patient will Verbalize Understanding of Desired Content, and/or Performs Desired Skill Prior to Discharge (Lou Carballo, RN) Status: Ongoing (Lou Carballo, RN) State: Risk For (Lou Carballo, YASMANI) Related To: Prolonged Labor or Induction; Invasive Procedures (Lou Carballo, RN) Goal(s): The Patient will be Free of Infection, Vital Signs Stable and Lab Work within Normal Parameters (Lou Carballo, RN) Interventions: Instruct and Reinforce Proper Handwashing, Hygiene, and Care Techniques to Patient and Family; Monitor Vital Signs; Monitor Patient for the Following Signs of Infection: Fever, Abdominal Tenderness, Unusual Discharge; Monitor Aminiotic Fluid, Urine and Lochia for Color and Odor; Observe Wounds, Incisions and Invasive Line Sites for Redness, Drainage and Edema; Assess IV Sites per Hospital Policy; Monitor Lab and Test Results and Notify Provider of Abnormal Findings; Assess Nutritional Status and Promote Good Nutrition (Lou Carballo, RN) Outcome: Patient will Remain Free of Infection (Lou Carballo, RN) Status: Ongoing (Lou Carballo, RN) Outcome: Infection will be Recognized Early to Allow for Prompt Treatment (Lou Carballo, RN) Status: Ongoing (Lou Carballo, RN) Outcome: Patient will have Vital Signs Within Expected Range (Lou Carballo, RN) Status: Ongoing (Lou Carballo, RN) Related To: Prolonged Labor or Induction (Lou Carballo, RN) Goal(s): Patient will Achieve and Maintain a Balanced Fluid Volume Status; Hemodynamically Stable (Lou Carballo, RN) Interventions: Monitor Vital Signs; Auscultate Breath Sounds; Monitor Patient for Skin Turgor, Mucous Membranes, Dry Skin, Weakness, Headaches and Confusion; Provide Oral Fluids as Ordered; Initiate and Maintain Intravenous Fluids as Ordered; Monitor Intake and Output as Indicated Per Patient Status; Accurately Measure Blood Loss; Monitor Lab and Test Results as Obtained and Notify Provider of Abnormal Findings; Monitor Patient's Weight (Lou Carballo, RN) Outcome: Patient will have Clear Lung Sounds (Lou Carballo, RN) Status: Ongoing (Lou Carballo, RN) Outcome: Patient will have Vital Signs within Expected Range (Lou Carballo, RN) Status: Ongoing (oLu Carballo, RN) Outcome: Urine Output will be within Expected Range (Lou Haris, RN) Status: Ongoing (Luo Carballo, RN) Outcome: Patient will have Minimal Generalized or Upper Extremity Edema (Lou Carballo, RN) Status: Ongoing (Lou Carballo, RN) State: Risk For (Lou Carballo, RN) Related To: Vaginal Delivery; Invasive Procedures (Lou Carballo, RN) Goal(s): Patient will Maintain Optimal Skin Integrity, Free of Breakdown, Injury or Infection (Lou Carballo, RN) Interventions: Complete Screening for Pressure Ulcer Risk and Initiate Protocol per Hospital Policy; Monitor Site of Skin Impairment for Color Changes, Redness, Swelling, Warmth, Pain or Other Signs of Infection; Encourage and Assist with Position Changes; Monitor Patient's Mobility Status; Provide Adequate Nutrition and Fluids; Teach Patient Appropriate Hygienic Care; Teach Patient/Family Skin Care Management (Lou Carballo, RN) Outcome: Patient will not have Evidence of Injury Such as Skin Breakdown, Scrapes, Cuts, or Bruising (Lou Carballo, RN) Status: Ongoing (Lou Carballo, RN) Outcome: Patient will Report Any Altered Sensation or Pain at Site of Skin Impairment (Lou Carballo, RN) Status: Ongoing (Lou Carballo, RN) Outcome: Patients Incisions and Wounds will be without Signs or Symptoms of Infection (Lou Carballo, RN) Status: Ongoing (Lou Carballo, RNC) Outcome: Patient will Demonstrate Understanding of Plan to Heal Skin and Prevent Reinjury and Verbalize Risk Factors (Lou Carballo, RN) Status: Ongoing (Lou Carballo, RN) State: Actual (Lou Carballo, RN) Related To: ; (Lou Carballo, RNC) Goal(s): Patient will have an Intake of Nutrients Sufficient to Meet Metabolic Needs (Lou Camp, RNC) Interventions: Nutritional Screening and Assessment per Hospital Policy; Consult Bag Washer for Further Assessment and Recommendations Regarding Food Preferences and Nutritional Support; Allow Patient to Plan and Order Diet when Possible; Monitor Laboratory Values That Indicate Nutritional Well-being; Consult Meter Maintenance Person for Nutritional Support Regarding Requirements; Document Actual Weight Initially and Weekly (Do Not Estimate); Encourage Patient Participation in Maintaining a Food Log as Indicated; Educate Patient on the Importance of Maintaining an Adequate Caloric Intake (KANG Chong) Outcome: Patient will Receive Adequate Calories and Fluid Volume to Meet Metabolic Needs (KANG Chong) Status: Ongoing (KANG Chong) Outcome: Patient will Select Foods or Meals that Support Adequate Nutrition (KANG Chong) Status: Ongoing (KANG Chong)
--- NOTE | 2016-05-24 20:26 | Delivery Summary ---
Del Sum A-C Datetime Report Generated by CPN: 05/24/2016 20:20 DELIVERY PERSONNEL DELIVERY PERSONNEL: [id number] Delivery Doctor:: Michelle Lucio MD Labor and Delivery Nurse:: Clotilde Sow RN Labor and Delivery Nurse:: KANG Chong Nursery Nurse:: Daphney Chiang RN Student Observers:: Jessica FENG [facility] [employer] Guest Services Manager/MANAGER STRATEGY: Carole Reddy CNA II MATERNAL INFORMATION Delivery Anesthesia: Epidural Medications After Delivery: Pitocin Bolus-Please Comment; Pitocin Drip 20 Units/1000ml NSS Estimated Blood Loss (ml): 300 Maternal Complications: None Provider Comments: Pt progressed to over intact perineum of female infant with apgars 9 and 9. Head delivered OA. Shoulders and body delivered easily. RATE REVIEWER/OP bulb suctioned. COrd clamped and cut. Placenta spont and intact. Mom and baby doing well. LABOR SUMMARY EDC: 06/13/2016 00:00 No. Babies in Womb: 1 Attempted: No Labor Anesthesia: Epidural LABOR INFORMATION Reason for Induction: Intrauterine Growth Retardation Onset of Labor: 05/23/2016 10:25 Complete Dilatation: 05/23/2016 14:37 Oxytocin: Induction Group B Beta Strep: negative Antibiotics # of Doses: 0 Steroids Given: None Reason Steroids Not Administered: Not Applicable MEMBRANES Membranes Rupture Method: Artificial Rupture of Membranes: 05/23/2016 10:25 Length of Rupture (hr): 4.35 Amniotic Fluid Color: Clear Amniotic Fluid Amount: Small Amniotic Fluid Odor: None STAGES OF LABOR Stage 1 hr: 4 Stage 1 min: 12 Stage 2 hr: 0 Stage 2 min: 9 Stage 3 hr: 0 Stage 3 min: 4 Total Time in Labor hr: 4 Total Time in Labor min: 25 VAGINAL DELIVERY Episiotomy: None Laceration Extension: N/A Laceration Type: None Laceration Repair: Not Applicable Sponge Count Correct: N/A Sharps Count Correct: N/A CSECTION DELIVERY Primary Indication: N/A Secondary Indication: N/A CSection Incidence: N/A Labor: N/A Elective: N/A CSection Incision: N/A BABY A INFORMATION Infant Delivery Date/Time: 05/23/2016 14:46 Method of Delivery: Vaginal Born in Route : No : N/A Forceps: N/A Vacuum Extraction: Successful Shoulder Dystocia : No PRESENTATION/POSITION BABY A Presentation: Cephalic Cephalic Presentation: Vertex Vertex Position: Right Occipital Anterior Breech Presentation: N/A PLACENTA INFORMATION BABY A Placenta Delivery Time : 05/23/2016 14:50 Placenta Method of Delivery: Spontaneous Placenta Status: Delivered SCORES BABY A Heart Rate 1 min: >100 bpm Resp Effort 1 min: Good Cry Reflex Irritability 1 min: Cough or Sneeze or Pulls Away Muscle Tone 1 min: Active Motion Color 1 min: Body [place], Extremities Blue Resuscitation Effort 1 min: Tactile Stimulation SCORE 1 MIN: 9 Heart Rate 5 min: >100 bpm Resp Effort 5 min: Good Cry Reflex Irritability 5 min: Cough or Sneeze or Pulls Away Muscle Tone 5 min: Active Motion Color 5 min: Body [place], Extremities Blue Resuscitation Effort 5 min: N/A SCORE 5 MIN: 9 Resuscitation Effort 10 min: N/A INFORMATION BABY A Gestational Age at Delivery: 37.0 Gestational Status: Early Term- 37- 38.6 Weeks Infant Outcome : Liveborn Infant Condition : Stable Infant Sex: Female IDENTIFICATION BABY A Infant Verification Date/Time: 05/23/2016 14:59 ID Band Number: [id number] Mother's Name Verified: Yes Infant RN Verifying : A Samra RN Additional Verifying Personnel: S [place] RNC WEIGHT/LENGTH BABY A Birthweight (gm): 2713 Weight (lb): 6 Weight (oz): 0 Infant Length (in): 18.00 Length (cm): 45.72 CORD INFORMATION BABY A No. Cord Vessels: 3 Nuchal Cord : N/A Cord Blood Taken: Yes-For Eval (Mom's Blood Type - or O+) Suction: None ASSESSMENT BABY A Infant Complications: None Physical Findings at Delivery: Puncture Wound from Scalp Electrode Infant Respirations: Appears Normal Skin to Skin: Yes Skin to Skin Time (min): [address] Collections Officer/ALS Called : No Infant Care By: E Андрей RNC Transferred To: Remains with Mother BABY B INFORMATION : N/A SIGNATURES Signature: with User ID: [email or web address]
--- NOTE | 2016-05-24 20:26 | L&D General Admission ---
General Admit Datetime Report Generated by CPN: 05/24/2016 20:20 INFORMATION Patient Age: 26 (03/30/2016 08:18:QS system process) EDC: 06/13/2016 00:00 (05/19/2016 15:18:Estelle Mora RN) : 2 (05/19/2016 15:18:KANG Chong) Para: 1 (05/19/2016 15:18:KANG Chong) Term: 1 (05/19/2016 15:18:KANG Chong) : 0 (05/19/2016 15:18:KANG Chong) Spontaneous Abortions: 0 (05/19/2016 15:18:KANG Chong) Induced Abortions: 0 (05/19/2016 15:18:KANG Chong) Livin (05/19/2016 15:18:KANG Chong) Cesareans: 0 (05/19/2016 15:18:KANG Chong) VBACs: 0 (05/19/2016 15:18:Lou Carballo [facility]) Ectopic: 0 (05/19/2016 15:18:[facility], [facility]) Multiple Births: 0 (05/19/2016 15:18:[facility]) Baby, Number in Womb: 1 (05/19/2016 15:18:[facility]) CARE Primary Clinic Office Manager: VerbalizeIt [facility] (05/19/2016 15:18:Estelle Mora RN) Month of 1st Visit: October (05/19/2016 15:18:[facility], [facility]) Adequate Care: Yes (05/19/2016 15:18:Estelle Mora RN) Prepregnancy Weight (lb): 130 (05/19/2016 15:18:Estelle Mora RN) Prepregnancy Weight (kg): 59.1 (05/19/2016 15:18:QS system process) Height (in): 65 (05/23/2016 07:23:QS system process) ALLERGIES Medication Allergy: No (05/19/2016 15:18:Estelle Mora RN) Medication Allergies: No Known Allergies (05/23/2016) (05/23/2016 07:23:QS system process) Latex Allergy: No Latex Allergies (05/19/2016 15:18:Estelle Mora RN) COMMUNICATION Primary Language: Greek (05/19/2016 15:18:Estelle Mora RN) Medical Tx Preferred Language: Greek (05/19/2016 15:18:KANG Chong) Communication Barrier(s): None (05/19/2016 15:18:KANG Chong) DEMOGRAPHICS Address: [facility] [place] [address] (03/30/2016 08:18:QS system process) Zipcode: [address] (03/30/2016 08:18:QS system process) Home (03/30/2016 08:18:QS system process) N: [id number] (03/30/2016 08:18:QS system process) Next of Kin Name: NAVEED MACIAS (03/30/2016 08:18:QS system process) Next of Kin (03/30/2016 08:18:QS system process) Next of Kin Relationship: SPO (03/30/2016 08:18:QS system process) Date of : 1990 (03/30/2016 08:18:QS system process) Marital Status: (03/30/2016 08:18:QS system process) Sex: Female (03/30/2016 08:18:QS system process) Race: (03/30/2016 08:18:QS system process) Ethnicity: Non- or (03/30/2016 08:18:QS system process) Yarsani: Other (03/30/2016 08:18:QS system process) FOB Involved: Yes (05/19/2016 15:18:KANG Chong) DRUG AND ALCOHOL USE Alcohol: No (05/19/2016 15:18:Estelle Mora RN) Cigarettes: Never Smoker. [id number] (05/19/2016 15:18:Estelle Mora RN) Marijuana: No (05/19/2016 15:18:Estelle Mora RN) Cocaine: No (05/19/2016 15:18:Estelle Mora RN) Other Illicit Drugs: No (05/19/2016 15:18:Estelle Mora RN) VACCINE HISTORY Influenza Vaccine: No (05/19/2016 15:18:Estelle Mora RN) Pneumococcal Vaccine: No (05/19/2016 15:18:Estelle Mora RN) Tetanus Vaccine: Yes (05/19/2016 15:18:Estelle Mora RN) Tdap Vaccine: Yes (05/19/2016 15:18:Estelle Mora RN) Hepatitis B Vaccine: Yes (05/19/2016 15:18:Estelle Mora RN) Induction Machine Setter: Davin Ortega (05/19/2016 15:18:Estelle Mora RN) Feeding Preference: Breast (05/19/2016 15:18:Estelle Mora RN) Benefit of Breast Feed Discussed: Yes (05/19/2016 15:18:Estelle Mora RN) Circumcision: N/A (05/19/2016 15:18:Estelle Mora RN) Classes Attended: No (05/19/2016 15:18:Estelle Mora RN) Tubal Ligation: No (05/19/2016 15:18:Estelle Mora RN) Tubal Authorization Signed: N/A (05/19/2016 15:18:Estelle Mora RN) Consent: N/A (05/19/2016 15:18:Estelle Mora RN) Consent Signed: N/A (05/19/2016 15:18:Estelle Mora RN) Pain Management Plans: Epidural (05/19/2016 15:18:Estelle Mora RN) Plans for Labor and Delivery: None (05/19/2016 15:18:Estelle Mora RN) Support Person: Naveed Macias (05/19/2016 15:18:Estelle Mora RN) Support Person Relationship: (05/19/2016 15:18:Estelle Mora RN) Cultural/Spritual Practice: No (05/19/2016 15:18:Estelle Mora RN) Spir/Cult Dietary Needs: No (05/19/2016 15:18:Estelle Mora RN) LIVING SITUATION/DISCHARGE PLAN Living Arrangements: House (05/19/2016 15:18:Estelle Mora RN) Adequate Access to:: Electric; Heat; Refrigeration; Plumbing/Running water; Phone; Transportation (05/19/2016 15:18:Estelle Mora RN) WIC Program: Yes (05/19/2016 15:18:Estelle Mora RN) Discharge Field Service Rep Person: Naveed Macias (05/19/2016 15:18:Estelle Mora RN) Person to Help after Discharge: Naveed Macias (05/19/2016 15:18:Estelle Mora RN) Currently Using Commun Resources: Yes (05/19/2016 15:18:Estelle Mora RN) Outside Agency/Insulation Installer: Yes (05/19/2016 15:18:Estelle Mora RN) Car Seat for Discharge: Yes (05/19/2016 15:18:Estelle Mora RN) Adoption Requested: No (05/19/2016 15:18:Estelle Mora RN) Pt Contact w/infant Post : N/A (05/19/2016 15:18:Estelle Mora RN) LABS Blood Type: A Positive (05/19/2016 15:18:Lou Carballo, RN) Antibody Screen: negative (05/19/2016 15:18:Lou Carballo, RN) Hemoglobin: 9.6 L (05/24/2016 07:08:QS system process) Hematocrit: 28.2 L (05/24/2016 07:08:QS system process) MCV: 85 (05/24/2016 07:08:QS system process) Group Beta Strep: negative (05/19/2016 15:18:Lou Carballo RN) Gonorrhea: Negative (05/19/2016 15:18:Lou Carballo, RN) Chlamydia: Negative (05/19/2016 15:18:Lou Carballo, RN) RPR/VDRL: Nonreactive (05/19/2016 15:18:Lou Carballo, RNC) Hepatitis B: Negative (05/19/2016 15:18:Lou Carballo, RN) Rubella: Immune (05/19/2016 15:18:Lou Carballo, RNC) OB/PREVIOUS HISTORY Previous Procedures: Ultrasound; NST (05/19/2016 15:18:Clotilde Sow RN) Current Procedures: Ultrasound; NST (05/19/2016 15:18:Clotilde Sow RN) History of Previous : No (05/19/2016 15:18:Clotilde Sow RN) History of Gestational Diabetes: No (05/19/2016 15:18:Clotilde Sow RN) History of PIH: No (05/19/2016 15:18:Clotilde Sow RN) History of Incompetent Cervix: No (05/19/2016 15:18:Clotilde Sow RN) History of Placenta Previa/Abrup: No (05/19/2016 15:18:Clotilde Sow RN) History of Macrosomia: Yes (05/19/2016 15:18:Clotilde Sow RN) History of IUGR: Yes (05/19/2016 15:18:Clotilde Sow RN) History of Hemorrhage: No (05/19/2016 15:18:Clotilde Sow RN) History of Loss/Stillborn: No (05/19/2016 15:18:Clotilde Sow RN) History of : No (05/19/2016 15:18:Clotilde Sow RN) History of D (Rh) Sensitization: No (05/19/2016 15:18:Clotilde Sow RN) History Recurrent Loss/Stillborn: No (05/19/2016 15:18:Clotilde Sow RN) History Depression/PP Depression: No (05/19/2016 15:18:Clotilde Sow RN) History of Uterine Anomaly/NICK: No (05/19/2016 15:18:Clotilde Sow RN) History of Infertility: No (05/19/2016 15:18:Clotilde Sow RN) History of ART Treatment: No (05/19/2016 15:18:Clotilde Sow RN) History of NICK: No (05/19/2016 15:18:Clotilde Sow RN) MEDICAL HISTORY Med Hx Diabetes: No (05/19/2016 15:18:Clotilde Sow RN) Med Hx Hypertension: No (05/19/2016 15:18:Clotilde Sow RN) Med Hx Heart Disease: No (05/19/2016 15:18:Clotilde Sow RN) Med Hx Autoimmune Disorder: No (05/19/2016 15:18:Clotilde Sow RN) Med Hx Kidney Disease/UTI: No (05/19/2016 15:18:Clotilde Sow RN) Med Hx Neurologic/Epilepsy: No (05/19/2016 15:18:Clotilde Sow RN) Med Hx Psychiatric Disorders: No (05/19/2016 15:18:Clotilde Sow RN) Med Hx Hepatitis/Liver Disease: No (05/19/2016 15:18:Clotilde Sow RN) Med Hx Varicosities/Phlebitis: No (05/19/2016 15:18:Clotilde Sow RN) Med Hx Thyroid Dysfunction: No (05/19/2016 15:18:Clotilde Sow RN) Med Hx Trauma/Violence: No (05/19/2016 15:18:Clotilde Sow RN) Med Hx Blood Transfusion: No (05/19/2016 15:18:Clotilde Sow RN) Med Hx Pulmonary (Asthma,TB): No (05/19/2016 15:18:Clotilde Sow RN) Med Hx Breast: No (05/19/2016 15:18:Clotilde Sow RN) Med Hx MEDICAL REVIEW SPECIALIST Surgery: No (05/19/2016 15:18:Clotilde Sow RN) Med Hx Hospitalization/Surgery: Yes (05/19/2016 15:18:Clotilde Sow RN) Med Hx Anesthetic Complications: No (05/19/2016 15:18:Clotilde Sow RN) Med Hx Abnormal Pap Smear: No (05/19/2016 15:18:Clotilde Sow RN) Other Medical Diseases: No (05/19/2016 15:18:Clotilde Sow RN) Med Hx Significant Family Hx: No (05/19/2016 15:18:Clotilde Sow, YASMANI) Details of Med/Surg Hx: CHILDBIRTH (05/19/2016 15:18:Clotilde Sow RN) INFECTIOUS HISTORY Inf Hx Gonorrhea: No (05/19/2016 15:18:Clotilde Sow RN) Inf Hx Chlamydia: No (05/19/2016 15:18:Clotilde Sow RN) Inf Hx Syphilis: No (05/19/2016 15:18:Clotilde Sow RN) Inf Hx HIV/AIDS: No (05/19/2016 15:18:Clotilde Sow RN) Inf Hx Human Papilloma Virus: No (05/19/2016 15:18:Clotilde Sow RN) Inf Hx Pt/Partner Genital Herpes: No (05/19/2016 15:18:Clotilde Sow RN) Inf Hx Tuberculosis/Exposure: No (05/19/2016 15:18:Clotilde Sow RN) Inf Hx Hepatitis B,C: No (05/19/2016 15:18:Clotilde Sow RN) Inf Hx Rash or Viral Illness: No (05/19/2016 15:18:Clotilde Sow RN) GENETIC HISTORY Gen Hx Age >=35 at [place]: No (05/19/2016 15:18:Clotilde Sow RN) Gen Hx Thalassemia: No (05/19/2016 15:18:Clotilde Sow RN) Gen Hx Congenital Heart Defect: No (05/19/2016 15:18:Clotilde Sow RN) Gen Hx Neural Tube Defect: No (05/19/2016 15:18:Clotilde Sow RN) Gen Hx Down's Syndrome: No (05/19/2016 15:18:Clotilde Sow RN) Gen Hx Chema-Sachs: No (05/19/2016 15:18:Clotilde Sow RN) Gen Hx Roberto: No (05/19/2016 15:18:Clotilde Sow RN) Gen Hx Familial Dysautonomia: No (05/19/2016 15:18:Clotilde Sow RN) Gen Hx Sickle Cell Disease/Trait: No (05/19/2016 15:18:Clotilde Sow RN) Gen Hx Hemophilia/Blood Disorder: No (05/19/2016 15:18:Clotilde Sow RN) Gen Hx Muscular Dystrophy: No (05/19/2016 15:18:Clotilde Sow RN) Gen Hx Cystic Fibrosis: No (05/19/2016 15:18:Clotilde Sow RN) Gen Hx Huntingtons Chorea: No (05/19/2016 15:18:Clotilde Sow RN) Gen Hx Mental Retardation/Autism: No (05/19/2016 15:18:Clotilde Sow RN) Gen Hx Tested for Fragile X: No (05/19/2016 15:18:Clotilde Sow RN) Gen Hx Other Inher/Chromosomal: No (05/19/2016 15:18:Clotilde Sow RN) Gen Hx Maternal Metabolic DO: No (05/19/2016 15:18:Clotilde Sow RN) Gen Hx Pt Father or FOB Defect: No (05/19/2016 15:18:Clotilde Sow RN) Gen Hx Other Genetic History: No (05/19/2016 15:18:Clotilde Sow RN) Gen Hx Drugs/Meds since LMP: No (05/19/2016 15:18:Clotilde Sow RN)
--- NOTE | 2016-05-24 20:26 | L&D Admission Assessment ---
LD ADM ASMT Datetime Report Generated by CPN: 05/24/2016 20:20 Assessment Type: Admission Assessment (05/23/2016 08:46:Clotilde Sow RN) Weight (lb): 165 (05/23/2016 18:18:QS system process) Weight (lb): 165 (05/23/2016 11:29:QS system process) Weight (lb): 165 (05/23/2016 08:50:QS system process) Weight (lb): 165 (05/23/2016 07:23:QS system process) Weight (lb): 163 (05/19/2016 17:34:QS system process) Weight (kg): 75.0 (05/23/2016 18:18:QS system process) Weight (kg): 75.0 (05/23/2016 11:29:QS system process) Weight (kg): 75.0 (05/23/2016 08:50:QS system process) Weight (kg): 75.0 (05/23/2016 07:23:QS system process) Weight (kg): 74.1 (05/19/2016 17:34:QS system process) Total Wt Gain (lb): 35 (05/23/2016 18:18:QS system process) Total Wt Gain (lb): 35 (05/23/2016 11:29:QS system process) Total Wt Gain (lb): 35 (05/23/2016 08:50:QS system process) Total Wt Gain (lb): 35 (05/23/2016 07:23:QS system process) Total Wt Gain (lb): 33 (05/19/2016 17:34:QS system process) Wt Gain (kg): 15.9 (05/23/2016 18:18:QS system process) Wt Gain (kg): 15.9 (05/23/2016 11:29:QS system process) Wt Gain (kg): 15.9 (05/23/2016 08:50:QS system process) Wt Gain (kg): 15.9 (05/23/2016 07:23:QS system process) Wt Gain (kg): 14.9 (05/19/2016 17:34:QS system process) BMI: 27.5 (05/23/2016 18:18:QS system process) BMI: 27.5 (05/23/2016 11:29:QS system process) BMI: 27.5 (05/23/2016 08:50:QS system process) BMI: 29.2 (05/23/2016 07:23:QS system process) Onset of Labor: 05/23/2016 10:25 (05/19/2016 15:18:Clotilde Sow RN) Pain Scale: 0 (05/23/2016 17:31:Clotilde Sow RN) Pain Scale: 0 (05/23/2016 16:45:Clotilde Sow RN) Pain Scale: 0 (05/23/2016 16:30:Clotilde Sow RN) Pain Scale: 0 (05/23/2016 16:15:Clotilde Sow RN) Pain Scale: 0 (05/23/2016 16:00:Clotilde Sow RN) Pain Scale: 0 (05/23/2016 15:45:Clotilde Sow RN) Pain Scale: 0 (05/23/2016 15:31:Clotilde Sow RN) Pain Scale: 0 (05/23/2016 15:15:Clotilde Sow RN) Pain Scale: 0 (05/23/2016 15:00:Clotilde Sow RN) Pain Scale: 0 (05/23/2016 14:52:Clotilde Sow RN) Pain Scale: 2 (05/23/2016 14:18:Clotilde Sow RN) Pain Scale: 1 (05/23/2016 14:00:Clotilde Sow RN) Pain Scale: 1 (05/23/2016 13:30:Clotilde Sow RN) Pain Scale: 1 (05/23/2016 13:01:Clotilde Sow RN) Pain Scale: 1 (05/23/2016 12:30:Clotilde Sow RN) Pain Scale: 1 (05/23/2016 12:00:Clotilde Sow RN) Pain Scale: 1 (05/23/2016 11:45:Clotilde Sow RN) Pain Scale: 3 (05/23/2016 11:30:Clotilde Sow RN) Pain Scale: 3 (05/23/2016 11:00:Clotilde Sow RN) Pain Scale: 3 (05/23/2016 10:44:Clotilde Sow RN) Pain Scale: 1 (05/23/2016 10:30:Clotilde Sow RN) Pain Scale: 1 (05/23/2016 10:00:Clotilde Sow RN) Pain Scale: 0 (05/23/2016 09:30:Clotilde Sow RN) Pain Scale: 0 (05/23/2016 09:00:Clotilde Sow RN) Pain Scale: 0 (05/23/2016 08:46:Clotilde Sow RN) Pain Scale: 0 (05/23/2016 07:42:Clotilde Sow RN) Pain Presence: None/Denies (05/23/2016 17:31:Clotilde Sow RN) Pain Presence: None/Denies (05/23/2016 16:45:Clotilde Sow RN) Pain Presence: None/Denies (05/23/2016 16:30:Clotilde Sow RN) Pain Presence: None/Denies (05/23/2016 16:15:Clotilde Sow RN) Pain Presence: None/Denies (05/23/2016 16:00:Clotilde Sow RN) Pain Presence: None/Denies (05/23/2016 15:45:Clotilde Sow RN) Pain Presence: None/Denies (05/23/2016 15:31:Clotilde Sow RN) Pain Presence: None/Denies (05/23/2016 15:15:Clotilde Sow RN) Pain Presence: None/Denies (05/23/2016 15:00:Clotilde Sow RN) Pain Presence: None/Denies (05/23/2016 14:52:Clotilde Sow RN) Pain Presence: Constant (05/23/2016 14:37:KANG Chong) Pain Presence: Intermittent (05/23/2016 14:18:Clotilde Sow RN) Pain Presence: Intermittent (05/23/2016 14:00:Clotilde Sow RN) Pain Presence: Intermittent (05/23/2016 13:30:Clotilde Sow RN) Pain Presence: Intermittent (05/23/2016 13:01:Clotilde Sow RN) Pain Presence: Intermittent (05/23/2016 12:30:Clotilde Sow RN) Pain Presence: Intermittent (05/23/2016 12:00:Clotilde Sow RN) Pain Presence: Intermittent (05/23/2016 11:45:Clotilde Sow RN) Pain Presence: Intermittent (05/23/2016 11:30:Clotilde Sow RN) Pain Presence: Intermittent (05/23/2016 11:00:Clotilde Sow RN) Pain Presence: Intermittent (05/23/2016 10:44:Clotilde Sow RN) Pain Presence: Intermittent (05/23/2016 10:30:Clotilde Sow RN) Pain Presence: Intermittent (05/23/2016 10:00:Clotilde Sow RN) Pain Presence: None/Denies (05/23/2016 09:30:Clotilde Sow RN) Pain Presence: None/Denies (05/23/2016 09:00:Clotilde Sow RN) Pain Presence: None/Denies (05/23/2016 08:46:Clotilde Sow RN) Pain Presence: None/Denies (05/23/2016 07:42:Clotilde Sow RN) Pain Type: N/A (05/23/2016 17:31:Clotilde Sow RN) Pain Type: N/A (05/23/2016 16:45:Clotilde Sow RN) Pain Type: N/A (05/23/2016 16:30:Clotilde Sow RN) Pain Type: N/A (05/23/2016 16:15:Clotilde Sow RN) Pain Type: N/A (05/23/2016 16:00:Clotilde Sow RN) Pain Type: N/A (05/23/2016 15:45:Clotilde Sow RN) Pain Type: N/A (05/23/2016 15:31:Clotilde Sow RN) Pain Type: N/A (05/23/2016 15:15:Clotilde Sow RN) Pain Type: N/A (05/23/2016 15:00:Clotilde Sow RN) Pain Type: N/A (05/23/2016 14:52:Clotilde Sow RN) Pain Type: Pressure (05/23/2016 14:37:KANG Chong) Pain Type: Pressure (05/23/2016 14:18:Clotilde Sow RN) Pain Type: Pressure (05/23/2016 14:00:Clotilde Sow RN) Pain Type: Pressure (05/23/2016 13:30:Clotilde Sow RN) Pain Type: Pressure (05/23/2016 13:01:Clotilde Sow RN) Pain Type: Pressure (05/23/2016 12:30:Clotilde Sow RN) Pain Type: Pressure (05/23/2016 12:00:Clotilde Sow RN) Pain Type: Pressure (05/23/2016 11:45:Clotilde Sow RN) Pain Type: Contraction (05/23/2016 11:30:Clotilde Sow RN) Pain Type: Contraction (05/23/2016 11:00:Clotilde Sow RN) Pain Type: Contraction (05/23/2016 10:44:Clotilde Sow RN) Pain Type: Cramping (05/23/2016 10:30:Clotilde Sow RN) Pain Type: Cramping (05/23/2016 10:00:Clotilde Sow RN) Pain Type: N/A (05/23/2016 09:30:Clotilde Sow RN) Pain Type: N/A (05/23/2016 09:00:Clotilde Sow RN) Pain Type: N/A (05/23/2016 08:46:Clotilde Sow RN) Pain Type: N/A (05/23/2016 07:42:Clotilde Sow RN) Pain Location: Perineum (05/23/2016 14:37:KANG Chong) Pain Location: Perineum (05/23/2016 14:18:Clotilde Sow RN) Pain Location: Abdomen (05/23/2016 14:00:Clotilde Sow RN) Pain Location: Abdomen (05/23/2016 13:30:Clotilde Sow RN) Pain Location: Abdomen (05/23/2016 13:01:Clotilde Sow RN) Pain Location: Abdomen (05/23/2016 12:30:Clotilde Sow RN) Pain Location: Abdomen (05/23/2016 12:00:Clotilde Sow RN) Pain Location: Abdomen (05/23/2016 11:45:Clotilde Sow RN) Pain Location: Abdomen (05/23/2016 11:30:Clotilde Sow RN) Pain Location: Abdomen (05/23/2016 11:00:Clotilde Sow RN) Pain Location: Abdomen (05/23/2016 10:44:Clotilde Sow RN) Pain Location: Abdomen (05/23/2016 10:30:Clotilde Sow RN) Pain Location: Abdomen (05/23/2016 10:00:Clotilde Sow RN) Pain Goal: 1 (05/23/2016 14:52:Clotilde Sow RN) Pain Goal: 1 (05/23/2016 08:46:Clotilde Sow RN) Pain Comments: (05/23/2016 15:00:Clotilde Sow RN) Pain Comments: (05/23/2016 14:52:Clotilde Sow RN) Frequency (min): 1-3 (05/23/2016 14:45:KANG Chong) Frequency (min): 1-1.5 (05/23/2016 14:30:Clotilde Sow RN) Frequency (min): 1-2 (05/23/2016 14:30:Clotilde Sow RN) Frequency (min): 2-3 (05/23/2016 14:18:Clotilde Sow RN) Frequency (min): 2-2.5 (05/23/2016 14:00:Clotilde Sow RN) Frequency (min): 1.5-2.5 (05/23/2016 13:45:Clotilde Sow RN) Frequency (min): 1.5-2.5 (05/23/2016 13:30:Clotilde Sow RN) Frequency (min): 1.5-2.5 (05/23/2016 13:15:Clotilde Sow RN) Frequency (min): 2-2.5 (05/23/2016 13:01:Clotilde Sow RN) Frequency (min): 2-2.5 (05/23/2016 12:46:Clotilde Sow RN) Frequency (min): 2-2.5 (05/23/2016 12:30:Clotilde Sow RN) Frequency (min): 2-2.5 (05/23/2016 12:15:Clotilde Sow RN) Frequency (min): 1.5-2 (05/23/2016 12:00:Clotilde Sow RN) Frequency (min): 1.5-2.5 (05/23/2016 11:45:Clotilde Sow, RN) Frequency (min): 1.5-2.5 (05/23/2016 11:30:Clotilde Sow RN) Frequency (min): 1.5-2.5 (05/23/2016 11:14:Clotilde Sow, RN) Frequency (min): 1.5-2.5 (05/23/2016 11:00:Clotilde Sow RN) Frequency (min): 1.5-2.5 (05/23/2016 10:44:Clotilde Sow, RN) Frequency (min): 1.5-3 (05/23/2016 10:30:Clotilde Sow RN) Frequency (min): 2-3 (05/23/2016 10:16:Clotilde Sow RN) Frequency (min): 2-3 (05/23/2016 10:00:Clotilde Sow RN) Frequency (min): 2-4.5 (05/23/2016 09:45:Clotilde Sow RN) Frequency (min): 2-3 (05/23/2016 09:30:Clotilde Sow, RN) Frequency (min): 2-3 (05/23/2016 09:15:Clotilde Sow RN) Frequency (min): 1.5-4 (05/23/2016 09:00:Clotilde Sow RN) Frequency (min): IRREG (05/23/2016 08:44:Clotilde Sow RN) Frequency (min): IRREG (05/23/2016 08:15:Clotilde Sow, RN) Duration (sec): 60-100 (05/23/2016 14:45:KANG Chong) Duration (sec): 40-60 (05/23/2016 14:30:Clotilde Sow RN) Duration (sec): 50-60 (05/23/2016 14:30:Clotilde Sow RN) Duration (sec): 55-70 (05/23/2016 14:18:Clotilde Sow RN) Duration (sec): 60-70 (05/23/2016 14:00:Clotilde Sow RN) Duration (sec): 55-70 (05/23/2016 13:30:Clotilde Sow RN) Duration (sec): 60-70 (05/23/2016 13:15:Clotilde Sow RN) Duration (sec): 55-70 (05/23/2016 13:01:Clotilde Sow RN) Duration (sec): 55-70 (05/23/2016 12:46:Clotilde Sow RN) Duration (sec): 60-70 (05/23/2016 12:15:Clotilde Sow RN) Duration (sec): 55-70 (05/23/2016 11:45:Clotilde Sow RN) Duration (sec): 55-70 (05/23/2016 11:30:Clotilde Sow RN) Duration (sec): 60-70 (05/23/2016 11:14:Clotilde Sow RN) Duration (sec): 55-70 (05/23/2016 11:00:Clotilde Sow RN) Duration (sec): 60-70 (05/23/2016 10:30:Clotilde Sow RN) Duration (sec): 55-70 (05/23/2016 10:16:Clotilde Sow RN) Duration (sec): 60-70 (05/23/2016 10:00:Clotilde Sow RN) Duration (sec): 60-80 (05/23/2016 09:45:Clotilde Sow RN) Duration (sec): 60-80 (05/23/2016 09:30:Clotilde Sow RN) Duration (sec): 60-70 (05/23/2016 09:15:Clotilde Sow RN) Duration (sec): 60-80 (05/23/2016 09:00:Clotilde Sow RN) Duration (sec): 60-70 (05/23/2016 08:44:Clotilde Sow RN) Duration (sec): 60-70 (05/23/2016 08:15:Clotilde Sow RN) Quality: Moderate to Strong (05/23/2016 14:45:Lou Carballo RNC) Quality: Moderate to Strong (05/23/2016 14:30:Clotilde Sow RN) Quality: Moderate (05/23/2016 14:30:Clotilde Sow RN) Quality: Moderate (05/23/2016 14:18:Clotilde Sow RN) Quality: Moderate (05/23/2016 14:00:Clotilde Sow RN) Quality: Moderate (05/23/2016 13:45:Clotilde Sow RN) Quality: Moderate (05/23/2016 13:30:Clotilde Sow RN) Quality: Moderate (05/23/2016 13:20:Clotilde Sow RN) Quality: Moderate (05/23/2016 13:15:Clotilde Sow RN) Quality: Moderate (05/23/2016 13:01:Clotilde Sow RN) Quality: Moderate (05/23/2016 12:46:Clotilde Sow RN) Quality: Moderate (05/23/2016 12:30:Clotilde Sow RN) Quality: Moderate (05/23/2016 12:15:Clotilde Sow RN) Quality: Mild/Moderate (05/23/2016 12:00:Clotilde Sow RN) Quality: Mild/Moderate (05/23/2016 11:45:Clotilde Sow RN) Quality: Mild/Moderate (05/23/2016 11:30:Clotilde Sow RN) Quality: Mild/Moderate (05/23/2016 11:14:Clotilde Sow RN) Quality: Mild/Moderate (05/23/2016 11:00:Clotilde Sow RN) Quality: Mild/Moderate (05/23/2016 10:44:Clotilde Sow RN) Quality: Mild/Moderate (05/23/2016 10:30:Clotilde Sow RN) Quality: Mild (05/23/2016 10:16:Clotilde Sow RN) Quality: Mild (05/23/2016 10:00:Clotilde Sow RN) Quality: Mild (05/23/2016 09:45:Clotilde Sow RN) Quality: Mild (05/23/2016 09:30:Clotilde Sow RN) Quality: Mild (05/23/2016 09:15:Clotilde Sow RN) Quality: Mild (05/23/2016 09:00:Clotilde Sow RN) Quality: Mild (05/23/2016 08:44:Clotilde Sow RN) Quality: Mild (05/23/2016 08:15:Clotilde Sow RN) Pattern: Normal: <= 5 Contractions in 10 Minutes (05/23/2016 14:30:Clotilde Sow RN) Pattern: Tachysystole: > 5 Contractions in 10 Minutes (05/23/2016 13:20:Clotilde Sow RN) Resting Tone [place]: Relaxed (05/23/2016 14:45:KANG Chong) Resting Tone [place]: Relaxed (05/23/2016 14:30:Clotilde Sow RN) Resting Tone [place]: Relaxed (05/23/2016 14:18:Clotilde Sow RN) Resting Tone [place]: Relaxed (05/23/2016 14:00:Clotilde Sow RN) Resting Tone [place]: Relaxed (05/23/2016 13:45:Clotilde Sow RN) Resting Tone [place]: Relaxed (05/23/2016 13:30:Clotilde Sow RN) Resting Tone [place]: Relaxed (05/23/2016 13:15:Clotilde Sow RN) Resting Tone [place]: Relaxed (05/23/2016 13:01:Clotilde Sow RN) Resting Tone [place]: Relaxed (05/23/2016 12:46:Clotilde Sow RN) Resting Tone [place]: Relaxed (05/23/2016 12:30:Clotilde Sow RN) Resting Tone [place]: Relaxed (05/23/2016 12:15:Clotilde Sow RN) Resting Tone [place]: Relaxed (05/23/2016 12:00:Clotilde Sow RN) Resting Tone [place]: Relaxed (05/23/2016 11:45:Clotilde Sow RN) Resting Tone [place]: Relaxed (05/23/2016 11:30:Clotilde Sow RN) Resting Tone [place]: Relaxed (05/23/2016 11:14:Clotilde Sow RN) Resting Tone [place]: Relaxed (05/23/2016 11:00:Clotilde Sow RN) Resting Tone [place]: Relaxed (05/23/2016 10:44:Clotilde Sow RN) Resting Tone [place]: Relaxed (05/23/2016 10:30:Clotilde Sow RN) Resting Tone [place]: Relaxed (05/23/2016 10:16:Clotilde Sow RN) Resting Tone [place]: Relaxed (05/23/2016 10:00:Clotilde Sow RN) Resting Tone [place]: Relaxed (05/23/2016 09:45:Clotilde Sow RN) Resting Tone [place]: Relaxed (05/23/2016 09:30:Clotilde Sow RN) Resting Tone [place]: Relaxed (05/23/2016 09:15:Clotilde Sow RN) Resting Tone [place]: Relaxed (05/23/2016 09:00:Clotilde Sow RN) Resting Tone [place]: Relaxed (05/23/2016 08:46:Clotilde Sow RN) Resting Tone [place]: Relaxed (05/23/2016 08:44:Clotilde Sow RN) Resting Tone [place]: Relaxed (05/23/2016 08:15:Clotilde Sow RN) Resting Tone [place]: Relaxed (05/23/2016 07:42:Clotilde Sow RN) Dilatation (cm): 10.0 (05/23/2016 14:37:KANG Chong) Dilatation (cm): 10.0 (05/23/2016 14:37:Clotilde Sow RN) Dilatation (cm): 8.0 (05/23/2016 14:18:Clotilde Sow RN) Dilatation (cm): 7.0 (05/23/2016 14:12:Clotilde Sow RN) Dilatation (cm): 6.0 (05/23/2016 13:00:Clotilde Sow RN) Dilatation (cm): 3.0 (05/23/2016 10:25:Clotilde Sow RN) Dilatation (cm): 3.0 (05/23/2016 08:46:Clotilde Sow RN) Effacement (%): 100 (05/23/2016 14:37:KANG Chong) Effacement (%): 100 (05/23/2016 14:37:Clotilde Sow RN) Effacement (%): 100 (05/23/2016 14:18:Clotilde Sow RN) Effacement (%): 100 (05/23/2016 14:12:Clotilde Sow RN) Effacement (%): 90 (05/23/2016 13:00:Clotilde Sow RN) Effacement (%): 90 (05/23/2016 10:25:Clotilde Sow RN) Effacement (%): 90 (05/23/2016 08:46:Clotilde Sow RN) Station: 2 (05/23/2016 14:37:Clotilde Sow RN) Station: 0 (05/23/2016 14:18:Clotilde Sow RN) Station: 0 (05/23/2016 14:12:Clotilde Sow RN) Station: -1 (05/23/2016 13:00:Clotilde Sow RN) Station: -2 (05/23/2016 10:25:Clotilde Sow RN) Station: -2 (05/23/2016 08:46:Clotilde Sow RN) Presentation on Admission: Vertex (05/23/2016 08:46:Clotilde Sow RN) Membranes Status: Ruptured (05/23/2016 10:25:Clotilde Sow RN) Membranes Status: Intact (05/23/2016 08:46:Clotilde Sow RN) Membranes Rupture D/ (05/19/2016 15:18:Clotilde Sow RN) ROM Method: Artificial (05/23/2016 10:25:Clotilde Sow RN) Amniotic Fluid Color: Clear (05/23/2016 10:25:Clotilde Sow RN) Amniotic Fluid Amount: Small (05/23/2016 10:25:Clotilde Sow RN) Amniotic Fluid Odor: None (05/19/2016 15:18:Clotilde Sow RN) Coffey's Score Dilatation (cm): 3-4 cms (05/23/2016 08:46:Clotilde Sow RN) Coffey's Score Effacement (%): >80_ effaced (05/23/2016 08:46:Clotilde Sow RN) Coffey's Score Station: minus 2 (05/23/2016 08:46:Clotilde Sow RN) Coffey's Score Consistency: Soft (05/23/2016 08:46:Clotilde Sow RN) Level of Consciousness: Fully Conscious (05/23/2016 08:46:Clotilde Sow RN) DTR's/Clonus: DTRs 2+; No Clonus (05/23/2016 08:46:Clotilde Sow RN) Headache: Denies (05/23/2016 08:46:Clotilde Sow RN) Dizziness: No (05/23/2016 08:46:Clotilde Sow RN) Blurred Vision: No (05/23/2016 08:46:Clotilde Sow RN) Extremity Numbness/Tingling : None (05/23/2016 08:46:Clotilde Sow RN) Extremity Movement: Full Range of Motion (05/23/2016 08:46:Clotilde Sow RN) Heart Rhythm: Regular (05/23/2016 08:46:Clotilde Sow RN) Nailbeds: [place] (05/23/2016 08:46:Clotilde Sow RN) Capillary Refill: Less than 3 Seconds (05/23/2016 08:46:Clotilde Sow RN) Lower Extremities Edema: None (05/23/2016 08:46:Clotilde Sow RN) Lower Extremities Edema Degree: None (05/23/2016 08:46:Clotilde Sow RN) Upper Extremities Edema: None (05/23/2016 08:46:Clotilde Sow RN) Upper Extremities Edema Degree: None (05/23/2016 08:46:Clotilde Sow RN) Facial Edema: None (05/23/2016 08:46:Clotilde Sow RN) Fabien's Sign Left Leg: Negative (05/23/2016 08:46:Clotilde Sow RN) Fabien's Sign Right Leg: Negative (05/23/2016 08:46:Clotilde Sow RN) DVT Risk Age: Age less than 41 years (05/23/2016 08:46:Clotilde Sow RN) DVT Risk BMI: BMI<31 (05/23/2016 08:46:Clotilde oSw RN) DVT Risk Surgery: None Applicable (05/23/2016 08:46:Clotilde Sow RN) DVT Risk Other: None Applicable (05/23/2016 08:46:Clotilde Sow RN) DVT Risk Total: 0 (05/23/2016 08:46:QS system process) DVT Risk Total: 1 (05/19/2016 15:38:QS system process) DVT Risk Text: Low Risk (<10%) No specific measures, early ambulation (05/23/2016 08:46:QS system process) DVT Risk Text: Low Risk (<10%) No specific measures, early ambulation (05/19/2016 15:38:QS system process) Respiratory Effort: Unlabored; Regular Rhythm; Equal Expansion (05/23/2016 08:46:Clotilde Sow RN) Breath Sounds, Left: Clear and Equal (05/23/2016 08:46:Clotilde Sow RN) Breath Sounds, Right: Clear and Equal (05/23/2016 08:46:Clotilde Sow RN) Cough Productivity: None (05/23/2016 08:46:Clotilde Sow RN) Nausea/Vomiting: Denies (05/23/2016 08:46:Clotilde Sow RN) Bowel Sounds: Normoactive (05/23/2016 08:46:Clotilde Sow RN) RUQ Epigastric Pain: Denies (05/23/2016 08:46:Clotilde Sow RN) Bowel Patterns: Soft, Formed Stool (05/23/2016 08:46:Clotilde Sow RN) Hemorrhoids: None (05/23/2016 08:46:Clotilde Sow RN) Diet Type: Regular diet (05/23/2016 08:46:Clotilde Sow RN) Last Meal: 05/23/2016 06:00 (05/23/2016 08:46:Clotilde Sow RN) Bladder: Nondistended (05/23/2016 08:46:Clotilde Sow RN) Frequency of Urination: Yes (05/23/2016 08:46:Clotilde Sow RN) Urination Burning: No (05/23/2016 08:46:Clotilde Sow RN) CVA Tenderness: No (05/23/2016 08:46:Clotilde Sow RN) Vaginal Bleeding: Scant (05/23/2016 08:46:Clotilde Sow RN) Vaginal Discharge Amount: None (05/23/2016 08:46:Clotilde Sow RN) Vaginal Discharge Color: N/A (05/23/2016 08:46:Clotilde Sow RN) Vaginal Discharge Character: None (05/23/2016 08:46:Clotilde Sow RN) Skin Color: Normal for Race (05/23/2016 08:46:Clotilde Sow RN) Skin Temperature: Warm (05/23/2016 08:46:Clotilde Sow RN) Skin Moisture: Dry (05/23/2016 08:46:Clotilde Sow RN) Surgical Scars: NONE (05/23/2016 08:46:Clotilde Sow RN) Body Piercings/Tattoos: EARS PIERCED, HX OF BELLY BUTTON RING NO TATTOOS (05/23/2016 08:46:Clotilde Sow RN) Bonifacio Scale Sensory Perception: No Impairment- Responds to verbal commands. Has no sensory deficit which would limit ability to feel or voice pain or discomfort (05/23/2016 08:46:Clotilde Sow RN) Bonifacio Scale Moisture: Occasionally Moist- Skin is occasionally moist requiring an extra linen change approximately once a day (05/23/2016 08:46:Clotilde Sow RN) Bonifacio Scale Activity: Walks Frequently- Walks outside the room at least twice a day and inside room at least every 2 hours during the day. (05/23/2016 08:46:Clotilde Sow RN) Bonifacio Scale Mobility: No Limitations- Makes major and frequent changes in position without assistance (05/23/2016 08:46:Clotilde Sow RN) Bonifacio Scale Nutrition: Excellent- Eats most of every meal. Never refuses a meal. Usually eats a total of 4 or more servings of meat and dairy products. Occasionally eats between meals. Does not require supplementation (05/23/2016 08:46:Clotilde Sow RN) Bonifacio Scale Friction and Shear: No Apparent Problem- Moves in bed and in chair independently and has sufficient muscle strength to lift up completely during move. Maintains good position in bed or chair at all times (05/23/2016 08:46:Clotilde Sow RN) Bonifacio Scale Total: 22 (05/23/2016 08:46:QS system process) Bonifacio Scale Total: 21 (05/19/2016 15:38:QS system process) Bonifacio Scale Risk: No Risk of Pressure Ulcer Noted at this Time (05/23/2016 08:46:QS system process) Bonifacio Scale Risk: No Risk of Pressure Ulcer Noted at this Time (05/19/2016 15:38:QS system process) Family Support: Significant Other supportive, at bedside frequently (05/23/2016 08:46:Clotilde Sow RN) Emotional State: Calm/Relaxed (05/23/2016 08:46:Clotilde Sow RN) [place] Within Reach: Yes (05/23/2016 08:46:Clotilde Sow RN) Side Rails Up: Yes (05/23/2016 08:46:Clotilde Sow RN) Bed Wheels Locked: Yes (05/23/2016 08:46:Clotilde Sow RN) Arm Bands Present: Yes (05/23/2016 08:46:Clotilde Sow RN) Isolation: [place] (05/23/2016 08:46:Clotilde Sow RN) Fall Risk History of Falling: (0) No (05/23/2016 08:46:Clotilde Sow RN) Fall Risk Secondary Diagnosis: (0) No (05/23/2016 08:46:Clotilde Sow RN) Fall Risk Ambulatory Aid: (0) None/Bedrest/Wheelchair/Nurse Assist (05/23/2016 08:46:Clotilde Sow RN) Fall Risk IV Therapy: (20) Yes (05/23/2016 08:46:Clotilde Sow RN) Fall Risk Gait: (0) Normal/Bedrest/Immobile (05/23/2016 08:46:Clotilde Sow RN) Fall Risk Mental Status: (0) Oriented to Own Ability (05/23/2016 08:46:Clotilde Sow RN) Fall Risk Score: 20 (05/23/2016 08:46:[facility] system process) Fall Risk Score: 0 (05/19/2016 15:38:QS system process) Fall Risk Score Definition: No Risk: No action required (05/23/2016 08:46:QS system process) Fall Risk Score Definition: No Risk: No action required (05/19/2016 15:38:QS system process) Recent Exp Communicable Disease: No (05/23/2016 08:46:Clotilde Sow RN) Cough or Fever: No (05/23/2016 08:46:Clotilde Sow RN) Foreign Travel Past 10 Days: No (05/23/2016 08:46:Clotilde Sow RN) Open Wounds or Sores: No (05/23/2016 08:46:Clotilde Sow RN) Prior Antibiotic Resistance Tx: No (05/23/2016 08:46:Clotilde Sow RN) Cultures Obtained: Not Applicable (05/23/2016 08:46:Clotilde Sow RN) Isolation Initiated: No (05/23/2016 08:46:Clotilde Sow RN) Pt/Family Education: Not Applicable (05/23/2016 08:46:Clotilde Sow RN) FHR Baseline Rate (bpm) Baby A: 120 (05/23/2016 14:45:KANG Chong) FHR Baseline Rate (bpm) Baby A: 115 (05/23/2016 14:30:Clotilde Sow RN) FHR Baseline Rate (bpm) Baby A: 120 (05/23/2016 14:18:Clotilde Sow RN) FHR Baseline Rate (bpm) Baby A: 125 (05/23/2016 14:00:Clotilde Sow RN) FHR Baseline Rate (bpm) Baby A: 120 (05/23/2016 13:45:Clotilde Sow RN) FHR Baseline Rate (bpm) Baby A: 125 (05/23/2016 13:30:Clotilde Sow RN) FHR Baseline Rate (bpm) Baby A: 125 (05/23/2016 13:15:Clotilde Sow RN) FHR Baseline Rate (bpm) Baby A: 125 (05/23/2016 13:01:Clotilde Sow RN) FHR Baseline Rate (bpm) Baby A: 125 (05/23/2016 12:46:Clotilde Sow RN) FHR Baseline Rate (bpm) Baby A: 125 (05/23/2016 12:30:Clotilde Sow RN) FHR Baseline Rate (bpm) Baby A: 125 (05/23/2016 12:15:Clotilde Sow RN) FHR Baseline Rate (bpm) Baby A: 135 (05/23/2016 12:00:Clotilde Sow RN) FHR Baseline Rate (bpm) Baby A: 125 (05/23/2016 11:45:Clotilde Sow RN) FHR Baseline Rate (bpm) Baby A: 125 (05/23/2016 11:30:Clotilde Sow RN) FHR Baseline Rate (bpm) Baby A: 125 (05/23/2016 11:14:Clotilde Sow RN) FHR Baseline Rate (bpm) Baby A: 125 (05/23/2016 11:00:Clotilde Sow RN) FHR Baseline Rate (bpm) Baby A: 125 (05/23/2016 10:44:Clotilde Sow RN) FHR Baseline Rate (bpm) Baby A: 125 (05/23/2016 10:30:Clotilde Sow RN) FHR Baseline Rate (bpm) Baby A: 125 (05/23/2016 10:16:Clotilde Sow RN) FHR Baseline Rate (bpm) Baby A: 140 (05/23/2016 10:00:Clotilde Sow RN) FHR Baseline Rate (bpm) Baby A: 135 (05/23/2016 09:45:Clotilde Sow RN) FHR Baseline Rate (bpm) Baby A: 135 (05/23/2016 09:30:Clotilde Sow RN) FHR Baseline Rate (bpm) Baby A: 150 (05/23/2016 09:15:Clotilde Sow RN) FHR Baseline Rate (bpm) Baby A: 135 (05/23/2016 09:00:Clotilde Sow RN) FHR Baseline Rate (bpm) Baby A: 140 (05/23/2016 08:46:Clotilde Sow RN) FHR Baseline Rate (bpm) Baby A: 135 (05/23/2016 08:44:Clotilde Sow RN) FHR Baseline Rate (bpm) Baby A: 135 (05/23/2016 08:15:Clotilde Sow RN) FHR Baseline Rate (bpm) Baby A: 140 (05/23/2016 07:42:Clotilde Sow RN) Variability Baby A: Moderate 6-25 bpm (05/23/2016 14:45:KANG Chong) Variability Baby A: Moderate 6-25 bpm (05/23/2016 14:30:Clotilde Sow RN) Variability Baby A: Moderate 6-25 bpm (05/23/2016 14:18:Clotlide Sow RN) Variability Baby A: Moderate 6-25 bpm (05/23/2016 14:00:Clotilde Sow RN) Variability Baby A: Moderate 6-25 bpm (05/23/2016 13:45:Clotilde Sow RN) Variability Baby A: Moderate 6-25 bpm (05/23/2016 13:30:Clotilde Sow RN) Variability Baby A: Moderate 6-25 bpm (05/23/2016 13:15:Clotilde Sow RN) Variability Baby A: Moderate 6-25 bpm (05/23/2016 13:01:Clotilde Sow RN) Variability Baby A: Moderate 6-25 bpm (05/23/2016 12:46:Clotilde Sow RN) Variability Baby A: Moderate 6-25 bpm (05/23/2016 12:30:Clotilde Sow RN) Variability Baby A: Moderate 6-25 bpm (05/23/2016 12:15:Clotilde Sow RN) Variability Baby A: Moderate 6-25 bpm (05/23/2016 12:00:Clotilde Sow RN) Variability Baby A: Moderate 6-25 bpm (05/23/2016 11:45:Clotilde Sow RN) Variability Baby A: Moderate 6-25 bpm (05/23/2016 11:30:Clotilde Sow RN) Variability Baby A: Moderate 6-25 bpm (05/23/2016 11:14:Clotilde Sow RN) Variability Baby A: Moderate 6-25 bpm (05/23/2016 11:00:Clotilde Sow RN) Variability Baby A: Moderate 6-25 bpm (05/23/2016 10:44:Clotilde Sow RN) Variability Baby A: Moderate 6-25 bpm (05/23/2016 10:30:Clotilde Sow RN) Variability Baby A: Moderate 6-25 bpm (05/23/2016 10:16:Clotilde Sow RN) Variability Baby A: Moderate 6-25 bpm (05/23/2016 10:00:Clotilde Sow RN) Variability Baby A: Moderate 6-25 bpm (05/23/2016 09:45:Clotilde Sow RN) Variability Baby A: Moderate 6-25 bpm (05/23/2016 09:30:Clotilde Sow RN) Variability Baby A: Moderate 6-25 bpm (05/23/2016 09:15:Clotilde Sow RN) Variability Baby A: Moderate 6-25 bpm (05/23/2016 09:00:Clotilde Sow RN) Variability Baby A: Moderate 6-25 bpm (05/23/2016 08:46:Clotilde Sow RN) Variability Baby A: Moderate 6-25 bpm (05/23/2016 08:44:Clotilde Sow RN) Variability Baby A: Moderate 6-25 bpm (05/23/2016 08:15:Clotilde Sow RN) Accelerations Baby A: 15X15 (05/23/2016 14:45:KANG Chong) Accelerations Baby A: 10X10 (05/23/2016 14:30:Clotilde Sow RN) Accelerations Baby A: None (05/23/2016 14:18:Clotilde Sow RN) Accelerations Baby A: 15X15 (05/23/2016 14:00:Clotilde Sow RN) Accelerations Baby A: 15X15 (05/23/2016 13:45:Clotilde Sow RN) Accelerations Baby A: 15X15 (05/23/2016 13:30:Clotilde Sow RN) Accelerations Baby A: 15X15 (05/23/2016 13:15:Clotilde Sow RN) Accelerations Baby A: 15X15 (05/23/2016 13:01:Clotilde Sow RN) Accelerations Baby A: 15X15 (05/23/2016 12:46:Clotilde Sow RN) Accelerations Baby A: 15X15 (05/23/2016 12:30:Clotilde Sow RN) Accelerations Baby A: 15X15 (05/23/2016 12:15:Clotilde Sow RN) Accelerations Baby A: 15X15 (05/23/2016 12:00:Clotilde Sow RN) Accelerations Baby A: None (05/23/2016 11:45:Clotilde Sow RN) Accelerations Baby A: 15X15 (05/23/2016 11:30:Clotilde Sow RN) Accelerations Baby A: 15X15 (05/23/2016 11:14:Clotilde Sow RN) Accelerations Baby A: 15X15 (05/23/2016 11:00:Clotilde Sow RN) Accelerations Baby A: None (05/23/2016 10:44:Clotilde Sow RN) Accelerations Baby A: 15X15 (05/23/2016 10:30:Clotilde Sow RN) Accelerations Baby A: 15X15 (05/23/2016 10:16:Clotilde Sow RN) Accelerations Baby A: 15X15 (05/23/2016 10:00:Clotilde Sow RN) Accelerations Baby A: 15X15 (05/23/2016 09:45:Clotilde Sow RN) Accelerations Baby A: 15X15 (05/23/2016 09:30:Clotilde Sow RN) Accelerations Baby A: 15X15 (05/23/2016 09:15:Clotilde oSw RN) Accelerations Baby A: 15X15 (05/23/2016 09:00:Clotilde Sow RN) Accelerations Baby A: 15X15 (05/23/2016 08:46:Clotilde Sow RN) Accelerations Baby A: 15X15 (05/23/2016 08:44:Clotilde Sow RN) Accelerations Baby A: 15X15 (05/23/2016 08:15:Clotilde Sow RN) Decelerations Baby A: Variable (05/23/2016 14:45:KANG Chong) Decelerations Baby A: Early (05/23/2016 14:30:Clotilde Sow RN) Decelerations Baby A: Early; Variable (05/23/2016 14:18:Clotilde Sow RN) Decelerations Baby A: Early (05/23/2016 14:00:Clotilde Sow RN) Decelerations Baby A: Early (05/23/2016 13:45:Clotilde Sow RN) Decelerations Baby A: Early (05/23/2016 13:30:Clotilde Sow RN) Decelerations Baby A: None (05/23/2016 13:15:Clotilde Sow RN) Decelerations Baby A: None (05/23/2016 13:01:Clotilde Sow RN) Decelerations Baby A: None (05/23/2016 12:46:Clotilde Sow RN) Decelerations Baby A: None (05/23/2016 12:30:Clotilde Sow RN) Decelerations Baby A: None (05/23/2016 12:15:Clotilde Sow RN) Decelerations Baby A: None (05/23/2016 12:00:Clotilde Sow RN) Decelerations Baby A: None (05/23/2016 11:45:Clotilde Sow RN) Decelerations Baby A: None (05/23/2016 11:30:Clotilde Sow RN) Decelerations Baby A: None (05/23/2016 11:14:Clotilde Sow RN) Decelerations Baby A: None (05/23/2016 11:00:Clotilde Sow RN) Decelerations Baby A: Early (05/23/2016 10:44:Clotilde Sow RN) Decelerations Baby A: None (05/23/2016 10:30:Clotilde Sow RN) Decelerations Baby A: None (05/23/2016 10:16:Clotilde Sow RN) Decelerations Baby A: None (05/23/2016 10:00:Clotilde Sow RN) Decelerations Baby A: None (05/23/2016 09:45:Clotilde Sow RN) Decelerations Baby A: None (05/23/2016 09:30:Clotilde Sow RN) Decelerations Baby A: None (05/23/2016 09:15:Clotilde Sow RN) Decelerations Baby A: None (05/23/2016 09:00:Clotilde Sow RN) Decelerations Baby A: None (05/23/2016 08:46:Clotilde Sow RN) Decelerations Baby A: None (05/23/2016 08:44:Clotilde Sow RN) Decelerations Baby A: None (05/23/2016 08:15:Clotilde Sow RN) Assessment Flag: Admission Assessment (05/23/2016 08:46:QS system process)
[2016-05-25] MEDS: IBUPROFEN 800 MG TABLET PO SCH (05:07)
--- NOTE | 2016-05-25 06:00 | L&D Current Admission ---
Current Admit Datetime Report Generated by CPN: 05/25/2016 06:00 ADMISSION INFORMATION Current Admit Date/Time: 05/23/2016 07:17 (05/23/2016 08:32:Clotilde Sow RN) Reason for Admission: Induction of Labor (05/23/2016 08:32:Clotilde Sow RN) Chief Complaint: Scheduled Induction of Labor (05/23/2016 08:46:Clotilde Sow RN) EGA per Dates: 37.0 (05/23/2016 08:32:QS system process) Method of Arrival: Ambulatory (05/23/2016 08:32:Clotilde Sow RN) Reason for Induction: Intrauterine Growth Retardation (05/23/2016 08:32:Clotilde Sow RN) Records Available: Yes (05/23/2016 08:32:Clotilde Sow RN) General Admission Information: Reviewed (05/23/2016 08:32:Clotilde Sow RN) BELONGINGS/ADVANCED DIRECTIVES Valuables/Personal Effects: Cell Phone (05/23/2016 08:32:Clotilde Sow RN) Other Belongings: SEE VALUABLES CONSENT (05/23/2016 08:32:Clotilde Sow RN) Disposition of Belongings: Kept with Patient (05/23/2016 08:32:Clotilde Sow RN) Advance Direct for Healthcare: No, and Wants No Information (05/23/2016 08:32:Clotilde Sow RN) Indicate Intent if Not With Pt: RECEIVED IN REGISTRATION (05/23/2016 08:32:Clotilde Sow RN) Durable Power of Brim Stiffener: No (05/23/2016 08:32:Clotilde Sow RN) Living Will: No (05/23/2016 08:32:Clotilde Sow RN) Organ Donor: Yes (05/23/2016 08:32:Clotilde Sow RN) Pt Rights Information Given: Yes (05/23/2016 08:32:Clotilde Sow RN) Pt Understands Pt Rights: Yes (05/23/2016 08:32:Clotilde Sow RN) LEARNING ASSESSMENT Knowledge Level: Understands L_D Process; Understands Care Activities; Had Pre-Hospital Education; Understands Diagnosis (05/23/2016 08:32:Clotilde Sow RN) Barriers to Learning: None (05/23/2016 08:32:Clotilde Sow RN) Learning Readiness: Motivated (05/23/2016 08:32:Clotilde Sow RN) Learns Best By: 1 to 1 Instruction; Reading; Videos; Demonstration (05/23/2016 08:32:Clotilde Sow RN) Learning Needs: Labor and Delivery Process; Pain Management; Symptoms to Report; Treatment Plan; Medication; Diagnosis; Nutrition; Equipment; Infant Care; Community Resources (05/23/2016 08:32:Clotilde Sow RN) DOMESTIC VIOLANCE SCREENING Dom Viol Threatened/Hurt: No (05/23/2016 08:32:Clotilde Sow RN) Hx of Abuse/Neglect past 2yrs: No (05/23/2016 08:32:Clotilde Sow RN) Feel Unsafe Going Home: No (05/23/2016 08:32:Clotilde Sow RN) Addt'l Observ Indicating Abuse: No (05/23/2016 08:32:Clotilde Sow RN) Considered Personal Harm/Suicide: No (05/23/2016 08:32:Clotilde Sow RN) NUTRITIONAL/FUNCTIONAL SCREENING Problem with Appetite >5 Days: No (05/23/2016 08:32:Clotilde Sow RN) Chew/Swallow Difficulties: No (05/23/2016 08:32:Clotilde Sow RN) Inappropriate Wt Gain/Loss: No (05/23/2016 08:32:Clotilde Sow RN) Presence Skin Breakdown/Ulcer: No (05/23/2016 08:32:Clotilde Sow RN) Special Diet: No (05/23/2016 08:32:Clotilde Sow RN) Pt Requests Direct Response Consultant Visit: No (05/23/2016 08:32:Clotilde Sow RN) Hx of Any of the Following?: N/A (05/23/2016 08:32:Clotilde Sow RN) New Diagnosis of: N/A (05/23/2016 08:32:Clotilde Sow RN) Requires Assist w/Ambulation: No (05/23/2016 08:32:Clotilde Sow RN) Uses Assist Device to Ambulate: No (05/23/2016 08:32:Clotilde Sow RN) Pt Requires Help w/ADL's: No (05/23/2016 08:32:Clotilde Sow RN)
--- NOTE | 2016-05-25 06:00 | L&D General Admission ---
General Admit Datetime Report Generated by CPN: 05/25/2016 06:00 INFORMATION Patient Age: 26 (03/30/2016 08:18:QS system process) EDC: 06/13/2016 00:00 (05/19/2016 15:18:Estelle Mora RN) : 2 (05/19/2016 15:18:KANG Chong) Para: 1 (05/19/2016 15:18:KANG Chong) Term: 1 (05/19/2016 15:18:KANG Chong) : 0 (05/19/2016 15:18:KANG Chong) Spontaneous Abortions: 0 (05/19/2016 15:18:KANG Chong) Induced Abortions: 0 (05/19/2016 15:18:KANG Chong) Livin (05/19/2016 15:18:KANG Chong) Cesareans: 0 (05/19/2016 15:18:KANG Chong) VBACs: 0 (05/19/2016 15:18:Lou Carballo [facility]) Ectopic: 0 (05/19/2016 15:18:[facility], [facility]) Multiple Births: 0 (05/19/2016 15:18:[facility]) Baby, Number in Womb: 1 (05/19/2016 15:18:[facility]) CARE Primary Senior Product Integrity Engineer: [employer] [facility] (05/19/2016 15:18:Estelle Mora RN) Month of 1st Visit: October (05/19/2016 15:18:[facility], [facility]) Adequate Care: Yes (05/19/2016 15:18:Estelle Mora RN) Prepregnancy Weight (lb): 130 (05/19/2016 15:18:Estelle Mora RN) Prepregnancy Weight (kg): 59.1 (05/19/2016 15:18:QS system process) Height (in): 65 (05/23/2016 07:23:QS system process) ALLERGIES Medication Allergy: No (05/19/2016 15:18:Estelle Mora RN) Medication Allergies: No Known Allergies (05/23/2016) (05/23/2016 07:23:QS system process) Latex Allergy: No Latex Allergies (05/19/2016 15:18:Estelle Mora RN) COMMUNICATION Primary Language: Faroese (05/19/2016 15:18:Estelle Mora RN) Medical Tx Preferred Language: Faroese (05/19/2016 15:18:KANG Chong) Communication Barrier(s): None (05/19/2016 15:18:KANG Chong) DEMOGRAPHICS Address: [facility] [place] [address] (03/30/2016 08:18:QS system process) Zipcode: [address] (03/30/2016 08:18:QS system process) Home (03/30/2016 08:18:QS system process) N: [phone] (03/30/2016 08:18:QS system process) Next of Kin Name: NAVEED MACIAS (03/30/2016 08:18:QS system process) Next of Kin (03/30/2016 08:18:QS system process) Next of Kin Relationship: SPO (03/30/2016 08:18:QS system process) Date of : 1990 (03/30/2016 08:18:QS system process) Marital Status: (03/30/2016 08:18:QS system process) Sex: Female (03/30/2016 08:18:QS system process) Race: (03/30/2016 08:18:QS system process) Ethnicity: Non- or (03/30/2016 08:18:QS system process) Sikh: Other (03/30/2016 08:18:QS system process) FOB Involved: Yes (05/19/2016 15:18:KANG Chong) DRUG AND ALCOHOL USE Alcohol: No (05/19/2016 15:18:Estelle Mora RN) Cigarettes: Never Smoker. [id number] (05/19/2016 15:18:Estelle Mora RN) Marijuana: No (05/19/2016 15:18:Estelle Mroa RN) Cocaine: No (05/19/2016 15:18:Estelle Mora RN) Other Illicit Drugs: No (05/19/2016 15:18:Estelle Mora RN) VACCINE HISTORY Influenza Vaccine: No (05/19/2016 15:18:Estelle Mora RN) Pneumococcal Vaccine: No (05/19/2016 15:18:Estelle Mora RN) Tetanus Vaccine: Yes (05/19/2016 15:18:Estelle Mora RN) Tdap Vaccine: Yes (05/19/2016 15:18:Estelle Mora RN) Hepatitis B Vaccine: Yes (05/19/2016 15:18:Estelle Mora RN) Transcribing Operator Head: Davin Ortega (05/19/2016 15:18:Estelle Mora RN) Feeding Preference: Breast (05/19/2016 15:18:Estelle Mora RN) Benefit of Breast Feed Discussed: Yes (05/19/2016 15:18:Estelle Mora RN) Circumcision: N/A (05/19/2016 15:18:Estelle Mora RN) Classes Attended: No (05/19/2016 15:18:Estelle Mora RN) Tubal Ligation: No (05/19/2016 15:18:Etselle Mora RN) Tubal Authorization Signed: N/A (05/19/2016 15:18:Estelle Mora RN) Consent: N/A (05/19/2016 15:18:Estelle Mora RN) Consent Signed: N/A (05/19/2016 15:18:Estelle Mora RN) Pain Management Plans: Epidural (05/19/2016 15:18:Estelle Mora RN) Plans for Labor and Delivery: None (05/19/2016 15:18:Estelle Mora RN) Support Person: Naveed Macias (05/19/2016 15:18:Estelle Mora RN) Support Person Relationship: (05/19/2016 15:18:Estelle Mora RN) Cultural/Spritual Practice: No (05/19/2016 15:18:Estelle Mora RN) Spir/Cult Dietary Needs: No (05/19/2016 15:18:Estelle Mora RN) LIVING SITUATION/DISCHARGE PLAN Living Arrangements: House (05/19/2016 15:18:Estelle Mora RN) Adequate Access to:: Electric; Heat; Refrigeration; Plumbing/Running water; Phone; Transportation (05/19/2016 15:18:Estelle Mora RN) WIC Program: Yes (05/19/2016 15:18:Estelle Mora RN) Discharge Manager Plumbing Person: Naveed Macias (05/19/2016 15:18:Estelle Mora RN) Person to Help after Discharge: Naveed Macias (05/19/2016 15:18:Estelle Mora RN) Currently Using Commun Resources: Yes (05/19/2016 15:18:Estelle Mora RN) Outside Agency/Extractive Metallurgist: Yes (05/19/2016 15:18:Estelle Mora RN) Car Seat for Discharge: Yes (05/19/2016 15:18:Estelle Mora RN) Adoption Requested: No (05/19/2016 15:18:Estelle Mora RN) Pt Contact w/infant Post : N/A (05/19/2016 15:18:Estelle Mora RN) LABS Blood Type: A Positive (05/19/2016 15:18:Lou Carballo, RN) Antibody Screen: negative (05/19/2016 15:18:Lou Carballo, RN) Hemoglobin: 9.6 L (05/24/2016 07:08:QS system process) Hematocrit: 28.2 L (05/24/2016 07:08:QS system process) MCV: 85 (05/24/2016 07:08:QS system process) Group Beta Strep: negative (05/19/2016 15:18:Lou Carballo RN) Gonorrhea: Negative (05/19/2016 15:18:Lou Carballo, RN) Chlamydia: Negative (05/19/2016 15:18:Lou Carballo, RN) RPR/VDRL: Nonreactive (05/19/2016 15:18:Lou Carballo, RNC) Hepatitis B: Negative (05/19/2016 15:18:Lou Carballo, RN) Rubella: Immune (05/19/2016 15:18:Lou Carballo, RNC) OB/PREVIOUS HISTORY Previous Procedures: Ultrasound; NST (05/19/2016 15:18:Clotilde Sow RN) Current Procedures: Ultrasound; NST (05/19/2016 15:18:Clotilde Sow RN) History of Previous : No (05/19/2016 15:18:Clotilde Sow RN) History of Gestational Diabetes: No (05/19/2016 15:18:Clotilde Sow RN) History of PIH: No (05/19/2016 15:18:Clotilde Sow RN) History of Incompetent Cervix: No (05/19/2016 15:18:Clotilde Sow RN) History of Placenta Previa/Abrup: No (05/19/2016 15:18:Clotilde Sow RN) History of Macrosomia: Yes (05/19/2016 15:18:Clotilde Sow RN) History of IUGR: Yes (05/19/2016 15:18:Clotilde Sow RN) History of Hemorrhage: No (05/19/2016 15:18:Clotilde Sow RN) History of Loss/Stillborn: No (05/19/2016 15:18:Clotilde Sow RN) History of : No (05/19/2016 15:18:Clotilde Sow RN) History of D (Rh) Sensitization: No (05/19/2016 15:18:Clotilde Sow RN) History Recurrent Loss/Stillborn: No (05/19/2016 15:18:Clotilde Sow RN) History Depression/PP Depression: No (05/19/2016 15:18:Clotilde Sow RN) History of Uterine Anomaly/NICK: No (05/19/2016 15:18:Clotilde Sow RN) History of Infertility: No (05/19/2016 15:18:Clotilde Sow RN) History of ART Treatment: No (05/19/2016 15:18:Clotilde Sow RN) History of NICK: No (05/19/2016 15:18:Clotilde Sow RN) MEDICAL HISTORY Med Hx Diabetes: No (05/19/2016 15:18:Clotilde Sow RN) Med Hx Hypertension: No (05/19/2016 15:18:Clotilde Sow RN) Med Hx Heart Disease: No (05/19/2016 15:18:Clotilde Sow RN) Med Hx Autoimmune Disorder: No (05/19/2016 15:18:Clotilde Sow RN) Med Hx Kidney Disease/UTI: No (05/19/2016 15:18:Clotilde Sow RN) Med Hx Neurologic/Epilepsy: No (05/19/2016 15:18:Clotilde Sow RN) Med Hx Psychiatric Disorders: No (05/19/2016 15:18:Clotilde Sow RN) Med Hx Hepatitis/Liver Disease: No (05/19/2016 15:18:Clotilde Sow RN) Med Hx Varicosities/Phlebitis: No (05/19/2016 15:18:Clotilde Sow RN) Med Hx Thyroid Dysfunction: No (05/19/2016 15:18:Clotilde Sow RN) Med Hx Trauma/Violence: No (05/19/2016 15:18:Clotilde Sow RN) Med Hx Blood Transfusion: No (05/19/2016 15:18:Clotilde Sow RN) Med Hx Pulmonary (Asthma,TB): No (05/19/2016 15:18:Clotilde Sow RN) Med Hx Breast: No (05/19/2016 15:18:Clotilde Sow RN) Med Hx CYCLE CONSULTANT Surgery: No (05/19/2016 15:18:Clotilde Sow RN) Med Hx Hospitalization/Surgery: Yes (05/19/2016 15:18:Clotilde Sow RN) Med Hx Anesthetic Complications: No (05/19/2016 15:18:Clotilde Sow RN) Med Hx Abnormal Pap Smear: No (05/19/2016 15:18:Clotilde Sow RN) Other Medical Diseases: No (05/19/2016 15:18:Clotilde Sow RN) Med Hx Significant Family Hx: No (05/19/2016 15:18:Clotilde Sow, YASMANI) Details of Med/Surg Hx: CHILDBIRTH (05/19/2016 15:18:Clotilde Sow RN) INFECTIOUS HISTORY Inf Hx Gonorrhea: No (05/19/2016 15:18:Clotilde Sow RN) Inf Hx Chlamydia: No (05/19/2016 15:18:Clotilde Sow RN) Inf Hx Syphilis: No (05/19/2016 15:18:Clotilde Sow RN) Inf Hx HIV/AIDS: No (05/19/2016 15:18:Clotilde Sow RN) Inf Hx Human Papilloma Virus: No (05/19/2016 15:18:Clotilde Sow RN) Inf Hx Pt/Partner Genital Herpes: No (05/19/2016 15:18:Clotilde Sow RN) Inf Hx Tuberculosis/Exposure: No (05/19/2016 15:18:Clotilde Sow RN) Inf Hx Hepatitis B,C: No (05/19/2016 15:18:Clotilde Sow RN) Inf Hx Rash or Viral Illness: No (05/19/2016 15:18:Clotilde Sow RN) GENETIC HISTORY Gen Hx Age >=35 at [place]: No (05/19/2016 15:18:Clotilde Sow RN) Gen Hx Thalassemia: No (05/19/2016 15:18:Clotilde Sow RN) Gen Hx Congenital Heart Defect: No (05/19/2016 15:18:Clotilde Sow RN) Gen Hx Neural Tube Defect: No (05/19/2016 15:18:Clotilde Sow RN) Gen Hx Down's Syndrome: No (05/19/2016 15:18:Clotilde Sow RN) Gen Hx Chema-Sachs: No (05/19/2016 15:18:Clotilde Sow RN) Gen Hx Roberto: No (05/19/2016 15:18:Clotilde Sow RN) Gen Hx Familial Dysautonomia: No (05/19/2016 15:18:Clotilde Sow RN) Gen Hx Sickle Cell Disease/Trait: No (05/19/2016 15:18:Clotilde Sow RN) Gen Hx Hemophilia/Blood Disorder: No (05/19/2016 15:18:Clotilde Sow RN) Gen Hx Muscular Dystrophy: No (05/19/2016 15:18:Clotilde Sow RN) Gen Hx Cystic Fibrosis: No (05/19/2016 15:18:Clotilde Sow RN) Gen Hx Huntingtons Chorea: No (05/19/2016 15:18:Clotilde Sow RN) Gen Hx Mental Retardation/Autism: No (05/19/2016 15:18:Clotilde Sow RN) Gen Hx Tested for Fragile X: No (05/19/2016 15:18:Clotilde Sow RN) Gen Hx Other Inher/Chromosomal: No (05/19/2016 15:18:Clotilde Sow RN) Gen Hx Maternal Metabolic DO: No (05/19/2016 15:18:Clotilde Sow RN) Gen Hx Pt Father or FOB Defect: No (05/19/2016 15:18:Clotilde Sow RN) Gen Hx Other Genetic History: No (05/19/2016 15:18:Clotilde Sow RN) Gen Hx Drugs/Meds since LMP: No (05/19/2016 15:18:Clotilde Sow RN)
--- NOTE | 2016-05-25 06:15 | L&D Care Plan ---
LD CARE PLANS Datetime Report Generated by CPKosta: 05/25/2016 06:15 Datetime: 05/23/2016 07:29 State: Risk For (KANG Chong) Related To: Labor and Delivery Process; Treatment and Procedures (KANG Chong) Goal(s): Patients Pain will be Assessed and Managed; Patient will Verbalize Adequate Relief of Pain or the Ability to [place] with Current Pain (KANG Chong) Interventions: Assess Pain Severity on Scale of 0 (None) to 5 (Severe); Assess Type, Location and Intensity of Pain Each Time Client Reports Discomfort and Notify Provider if Unusal Pain Develops; Encourage Proper Breathing and Relaxation Techniques; Offer Alternatives Such as Repositioning, Calm Environment, Massages, Diversional Activities, Ice Pack, Splinting, and Ambulation; Administer Analgesics as Ordered; Assist with Epidural Placement as Appropriate; Evaluate Therapeutic Effectiveness of Medication and Treatments (KANG Chong) Outcome: Patient will Report Absence or Relief of Pain Consistent with Established Pain Goal (KANG Chong) Status: Ongoing (KANG Chong) Outcome: Patient will have a Decrease in Signs and Symptoms of Discomfort (Lou Carballo, RN) Status: Ongoing (Lou Carballo, RN) Outcome: Pain will be Controlled During Procedures (Lou Carballo, RN) Status: Ongoing (Lou Carballo, RN) State: Actual (Lou Carballo, RN) Related To: Labor and Delivery Process; Fear of Unknown; Situational Crisis; Medical Interventions; Significant Life Event (Lou Carballo, [facility]) Goal(s): Patient will have Decreased Anxiety and be able to Function at Acceptable Levels (Lou Carballo, RN) Interventions: Assess Verbal and Nonverbal Behavioral Indicators of Anxiety; Assist Patient to Identify and Verbalize Symptoms of Anxiety; Identify and Demonstrate Techniques to Control Anxiety; Assist Patient with Coping Mechanisms to Manage Anxiety; Provide Theraputic Touch for the Patient; Explain to Patient, Using a Calm Reassuring Approach and Nonmedical Terms, All Activities, Procedures, and Concerns; Instruct Patient and Family about Post Discharge Care, Limitations, Symptoms to Report and Resources Available (Lou Carballo, [facility]) Outcome: Patient will Identify, Verbalize and Demonstrate Techniques to Control Anxiety (Lou Carballo, RN) Status: Ongoing (Lou Carballo, RN) Outcome: Patient's Posture, Facial Expressions, Gestures and Activity Level will Reflect Decreased Anxiety (Lou Carballo, RN) Status: Ongoing (Lou Carballo, RN) Outcome: Patient will Verbalize a Sense of Control and/or Acceptance of the Situation (Lou Carballo, RN) Status: Ongoing (Lou Carballo, RN) Outcome: Patient will Identify and Utilize Support Person (Lou Carballo, [facility]) Status: Ongoing (Lou Carballo, RN) Related To: Labor and Delivery Process; Treatment and Procedures; Feeding and Infant Care; Community Resources and Available Support Mechanisms (Lou Carballo, RN) Goal(s): Patient will Accurately Verbalize Understanding of Plan of Care and Treatment; Patient and Family will Accurately Verbalize Understanding of the Disease Process (Lou Carballo, RNC) Interventions: Assess Motivation and Willingness of Patient/Family to Learn; Assess Preferred Learning Mode: One to One Instruction, Reading, Videos, Group Discussion or Demonstration; Assess Barriers to Learning: Pain, Emotional State, Language Barrier, Cognitive Impairment, Visual or Hearing Deficits; Assess Patient and Family Knowledge of Disease Process, Medications and Treatment; Discuss Therapy and/or Treatment Options, Describe Rationale Behind Management, Therapy and Treatment Recommendations; Instruct Patient and Family on Signs and Symptoms to Report; Instruct Patient and Family on Medication Effects and Side Effects; Provide Appropriate and Timely Education Using Multiple Techniques; Provide Patient and Family with Support Group Information and Resources; Give Clear and Thorough Explanations and Demonstrations (Lou Carballo, RN) Outcome: Patient and Family will Verbalize Understanding of Condition, Treatment and Signs and Symptoms to Report (Lou Carballo, RNC) Status: Ongoing (Lou Carballo, RN) Outcome: Patient will Identify Perceived Learning Needs and Express Motivation to Learn (Lou Carballo, RN) Status: Ongoing (Lou Carballo, RN) Outcome: Patient will Verbalize Understanding of Desired Content, and/or Performs Desired Skill Prior to Discharge (Lou Carballo, RN) Status: Ongoing (Lou Carballo, RN) State: Risk For (Lou Carballo, YASMANI) Related To: Prolonged Labor or Induction; Invasive Procedures (Lou Carballo, RN) Goal(s): The Patient will be Free of Infection, Vital Signs Stable and Lab Work within Normal Parameters (Lou Carballo, RN) Interventions: Instruct and Reinforce Proper Handwashing, Hygiene, and Care Techniques to Patient and Family; Monitor Vital Signs; Monitor Patient for the Following Signs of Infection: Fever, Abdominal Tenderness, Unusual Discharge; Monitor Aminiotic Fluid, Urine and Lochia for Color and Odor; Observe Wounds, Incisions and Invasive Line Sites for Redness, Drainage and Edema; Assess IV Sites per Hospital Policy; Monitor Lab and Test Results and Notify Provider of Abnormal Findings; Assess Nutritional Status and Promote Good Nutrition (Lou Carballo, RN) Outcome: Patient will Remain Free of Infection (Lou Carballo, RN) Status: Ongoing (Lou Carballo, RN) Outcome: Infection will be Recognized Early to Allow for Prompt Treatment (Lou Carballo, RN) Status: Ongoing (Lou Carballo, RN) Outcome: Patient will have Vital Signs Within Expected Range (Lou Carballo, RN) Status: Ongoing (Lou Carballo, RN) Related To: Prolonged Labor or Induction (Lou Carballo, RN) Goal(s): Patient will Achieve and Maintain a Balanced Fluid Volume Status; Hemodynamically Stable (Lou Carballo, RN) Interventions: Monitor Vital Signs; Auscultate Breath Sounds; Monitor Patient for Skin Turgor, Mucous Membranes, Dry Skin, Weakness, Headaches and Confusion; Provide Oral Fluids as Ordered; Initiate and Maintain Intravenous Fluids as Ordered; Monitor Intake and Output as Indicated Per Patient Status; Accurately Measure Blood Loss; Monitor Lab and Test Results as Obtained and Notify Provider of Abnormal Findings; Monitor Patient's Weight (Lou Carballo, RN) Outcome: Patient will have Clear Lung Sounds (Lou Carballo, RN) Status: Ongoing (Lou Carballo, RN) Outcome: Patient will have Vital Signs within Expected Range (Lou Carballo, RN) Status: Ongoing (Luo Carballo, RN) Outcome: Urine Output will be within Expected Range (Lou Haris, RN) Status: Ongoing (Lou Carballo, RN) Outcome: Patient will have Minimal Generalized or Upper Extremity Edema (Lou Carballo, RN) Status: Ongoing (Lou Carballo, RN) State: Risk For (Lou Carballo, RN) Related To: Vaginal Delivery; Invasive Procedures (Lou Carballo, RN) Goal(s): Patient will Maintain Optimal Skin Integrity, Free of Breakdown, Injury or Infection (Lou Carballo, RN) Interventions: Complete Screening for Pressure Ulcer Risk and Initiate Protocol per Hospital Policy; Monitor Site of Skin Impairment for Color Changes, Redness, Swelling, Warmth, Pain or Other Signs of Infection; Encourage and Assist with Position Changes; Monitor Patient's Mobility Status; Provide Adequate Nutrition and Fluids; Teach Patient Appropriate Hygienic Care; Teach Patient/Family Skin Care Management (Lou Carballo, RN) Outcome: Patient will not have Evidence of Injury Such as Skin Breakdown, Scrapes, Cuts, or Bruising (Lou Carballo, RN) Status: Ongoing (Lou Carballo, RN) Outcome: Patient will Report Any Altered Sensation or Pain at Site of Skin Impairment (Lou Carballo, RN) Status: Ongoing (Lou Carballo, RN) Outcome: Patients Incisions and Wounds will be without Signs or Symptoms of Infection (Lou Carballo, RN) Status: Ongoing (Lou Carballo, RNC) Outcome: Patient will Demonstrate Understanding of Plan to Heal Skin and Prevent Reinjury and Verbalize Risk Factors (Lou Carballo, RN) Status: Ongoing (Lou Carballo, RN) State: Actual (Lou Carballo, RN) Related To: ; (Lou Carballo, RNC) Goal(s): Patient will have an Intake of Nutrients Sufficient to Meet Metabolic Needs (Lou Camp, RNC) Interventions: Nutritional Screening and Assessment per Hospital Policy; Consult Conciliator for Further Assessment and Recommendations Regarding Food Preferences and Nutritional Support; Allow Patient to Plan and Order Diet when Possible; Monitor Laboratory Values That Indicate Nutritional Well-being; Consult Senior Enlisted Advisor for Nutritional Support Regarding Requirements; Document Actual Weight Initially and Weekly (Do Not Estimate); Encourage Patient Participation in Maintaining a Food Log as Indicated; Educate Patient on the Importance of Maintaining an Adequate Caloric Intake (KANG Chong) Outcome: Patient will Receive Adequate Calories and Fluid Volume to Meet Metabolic Needs (KANG Chong) Status: Ongoing (KANG Chong) Outcome: Patient will Select Foods or Meals that Support Adequate Nutrition (KANG Chong) Status: Ongoing (KANG Chong)
--- NOTE | 2016-05-25 09:01 | PDOC PROGRESS REPORT ---
Subjective-OB Subjective: Post Delivery Day: 26 year old. Denies any needs at this time. Ready to go home. Physical Exam (OB) Vital Signs: Temp Pulse Resp BP Pulse Ox 98.5 F 72 16 117/70 100 05/24/16 19:49 05/24/16 19:49 05/24/16 19:49 05/24/16 19:49 05/24/16 19:49 Intake & Output 05/24/16 05/25/16 05/26/16 06:59 06:59 06:59 Intake Total 500 600 Balance 500 600 Weight 74.9 kg - Lochia Lochia Amount: Scant < 10 ml Lochia Color: Rubra/Red - Abdomen Description: Soft, Round Hernia Present: No Bowel Sounds: Normoactive Flatus Presence: Present Stool: No Fundal Description: Firm, Midline Fundal Height: u/u - u/2 Objective-Diagnostic Laboratory: 05/24/16 07:08
[2016-05-25 09:08] VITALS: BP 126/69
--- NOTE | 2016-05-25 09:08 | PDOC DISCHARGE SUMMARY ---
Final Diagnosis Discharge Date: 05/25/16 - Final Diagnosis (1) IUGR (intrauterine growth restriction) Is this a current diagnosis for this admission?: Yes (2) Anemia Is this a current diagnosis for this admission?: Yes (3) Normal vaginal delivery Is this a current diagnosis for this admission?: Yes (4) Is this a current diagnosis for this admission?: Yes Discharge Data - Discharge Medication Home Medications: Pnv No.122/Iron/Folic Acid [ Multi Tablet] 1 tab PO DAILY 05/23/16 Ferrous Sulfate [Feosol 325 mg Tablet] 325 mg PO BID #60 tablet 05/25/16 Gestational Age: 37.0 wks Reason(s) for Admission: Induction of Labor Procedures: Ultrasound Intrapartum Procedure(s): Spontaneous Vaginal Delivery - Data Baby 1 Female at 1 minute: 9 at 5 minutes: 9 Weight: 2.722 kg Home with Mother: Yes Complications: No - Diagnosis Test Laboratory: Temp Pulse Resp BP Pulse Ox 98.5 F 72 16 117/70 100 05/24/16 19:49 05/24/16 19:49 05/24/16 19:49 05/24/16 19:49 05/24/16 19:49 05/23/16 05/23/16 05/24/16 07:48 09:15 07:08 RBC 3.42 L 3.31 L Hgb 10.0 L 9.6 L Hct 29.1 L 28.2 L Urine Opiates Screen NEGATIVE - Discharge information/Instructions Discharge Activity: Activity As Tolerated, Balance Activity w/Rest, Pelvic Rest , Slowly Increase Activity, No tub bath Discharge Diet: Regular Disposition: HOME, SELF-CARE Follow up with: [facility] in: 4, Weeks
[2016-05-25] MEDS: SENNOSIDES/DOCUSATE 8.6-50 MG 1 EACH TABLET PO SCH (10:06)
[2016-05-25] MEDS: FERROUS SULFATE 325 MG TABLET PO SCH (10:06)
[2016-05-25] MEDS: PRENATAL VITAMIN W-O CA NO5/FE FUMARATE/FA CAPSULE PO SCH (10:06)
[2016-05-25] MEDS: DOCUSATE SODIUM 100 MG CAPSULE PO SCH (10:06)
== END 2016-05-25 10:40 | disposition home or self-care (01) | DRG 775 ==
LOC: LR 07:01 → 2S 18:18
PROVIDERS: ADMIT Specialist; ATTEND Specialist
PROC: 10D07Z6 Extraction of Products of Conception, Vacuum, Via Natural or Artificial Opening (ICD-10-PCS; principal; 2016-05-23)
PROC: 10907ZC Drainage of Amniotic Fluid, Therapeutic from Products of Conception, Via Natural or Artificial Opening (ICD-10-PCS; 2016-05-23)
PROC: 3E0P7GC Introduction of Other Therapeutic Substance into Female Reproductive, Via Natural or Artificial Opening (ICD-10-PCS; 2016-05-23)
PROC: 4A1H7CZ Monitoring of Products of Conception, Cardiac Rate, Via Natural or Artificial Opening (ICD-10-PCS; 2016-05-23)
PROC: 10H073Z Insertion of Monitoring Electrode into Products of Conception, Via Natural or Artificial Opening (ICD-10-PCS; 2016-05-23)
DX: O36.5930 Maternal care for other known or suspected poor fetal growth, third trimester, not applicable or unspecified (principal); O99.02 Anemia complicating childbirth; D64.9 Anemia, unspecified; Z3A.37 37 weeks gestation of pregnancy; Z37.0 Single live birth
CPT/HCPCS: 36415; 80307; 81005; 85025; 85027; 86592; 86850; 86900; 86901; 88307; J2590; J3490

== ENCOUNTER 2019-02-28 09:57 | Outpatient (CLI) | payer MEDICAID ==
[2019-02-28 10:27] LABS: APPEARANCE,URINE CLOUDY; BILIRUBIN,URINE NEGATIVE (NEGATIVE); COLOR,URINE YELLOW; GLUCOSE, URINE NEGATIVE (NEGATIVE); KETONES,URINE TRACE mg/dL (NEGATIVE); LEUKOCYTE ESTERASE,URINE MODERATE (NEGATIVE); NITRITE,URINE NEGATIVE (NEGATIVE); PROTEIN,URINE 30 mg/dL (NEGATIVE); URINE SPECIFIC GRAVITY 1.017
[2019-02-28 10:44] LABS: URINE AMPHETAMINES SCREEN NEGATIVE; URINE BARBITURATES SCREEN NEGATIVE; URINE BENZODIAZEPINES SCREEN NEGATIVE; URINE COCAINE SCREEN NEGATIVE; URINE MARIJUANA (THC) SCREEN NEGATIVE; URINE METHADONE SCREEN NEGATIVE; URINE PHENCYCLIDINE SCREEN NEGATIVE
== END 2019-02-28 11:18 | disposition home or self-care (01) ==
LOC: LC 09:57
PROVIDERS: ATTEND Obstetrics & Gynecology Gynecology
PROC: 4A1HXCZ Monitoring of Products of Conception, Cardiac Rate, External Approach (ICD-10-PCS; principal; 2019-02-28)
DX: O47.1 False labor at or after 37 completed weeks of gestation (principal); Z3A.37 37 weeks gestation of pregnancy
CPT/HCPCS: 59025; 80307; 81005

== ENCOUNTER 2019-03-14 07:16 | Inpatient (IN) | payer MEDICAID ==
--- NOTE | 2019-03-14 07:28 | Non Stress Test Report ---
Non Stress Test Datetime Report Generated by CPN: 03/14/2019 07:28 DEMOGRAPHIC EGA NST: 37.5 EGA NST: 37.5 INDICATION Indication for Study (NST) Other: ctx MONITORING Monitor Explained: Monitor Explained; Test Explained; Patient Verbalized Understanding Monitor Explained: Monitor Explained; Test Explained; Patient Verbalized Understanding (Annotations: Data stored by [facility] on behalf of user) Time on Monitor: 02/28/2019 10:11 Time on Monitor: 02/28/2019 10:10 Time off Monitor: 02/28/2019 11:09 NST Duration: 58 NST INTERVENTIONS NST Interventions: None NST Interventions: PO Hydration; Reposition Patient Physician Notified NST: N Mccann CNM BABY A: [id number] BABY A Movement : Present Contraction Frequency : 1.5-5 FHR Baseline : 145 Accelerations : 15X15 Decelerations : None Variability : Moderate 6-25bpm NST Review: Meets Criteria for Reactive NST NST Review and Verified By : Lou Camp RNC NST Results: Reactive NST REPORT Report Trigger: Send Report
[2019-03-14] MEDS ORDERED: OXYTOCIN/NORMAL SALINE 20 UNIT/1,000 ML RTUINJ IV PRN ×2 (08:29→17:10)
[2019-03-14] MEDS ORDERED: MISOPROSTOL 0.2 MG TABLET ONE (08:53)
[2019-03-14] MEDS ORDERED: OXYTOCIN 10 UNIT/ML VIAL ONE (08:53)
[2019-03-14] MEDS ORDERED: LIDOCAINE 1% INJ-PF (10 MG/ML) 30 ML SDV ONE (08:54)
[2019-03-14] MEDS ORDERED: OXYTOCIN/NORMAL SALINE 20 UNIT/1,000 ML RTUINJ ONE (08:54)
[2019-03-14] MEDS: RINGERS SOLUTION,LACTATED 1,000 ML IV PRN ×2 (09:08→12:31)
[2019-03-14 09:33] LABS: ABSOLUTE EOSINOPHILS # (AUTO) 0.1 10^3/uL (0.0-0.6); ABSOLUTE LYMPHOCYTES (AUTO) 1.4 10^3/uL (0.5-4.7); ABSOLUTE MONOCYTES (AUTO) 0.5 10^3/uL (0.1-1.4); ABSOLUTE NEUT (AUTO) 5.8 10^3/uL (1.7-8.2); BASOPHILS % (AUTO) 0.2 % (0-2); EOSINOPHILS % (AUTO) 0.8 % (0-6); HEMATOCRIT 31.4 % (36.0-47.0); HEMOGLOBIN 10.9 g/dL (12.0-15.5); LYMPHOCYTES % (AUTO) 17.7 % (13-45); MEAN CORPUSCULAR HEMOGLOBIN 29.1 pg (27.0-33.4); MEAN CORPUSCULAR HGB CONC 34.7 g/dL (32.0-36.0); MEAN CORPUSCULAR VOLUME 84 fl (80-97); MONOCYTES % (AUTO) 6.1 % (3-13); PLATELET COUNT 181 10^3/uL (150-450); RED BLOOD COUNT 3.75 10^6/uL (3.72-5.28); RED CELL DISTRIBUTION WIDTH 14.4 % (11.5-14.0); SEGMENTED NEUTROPHILS % (AUTO) 75.2 % (42-78); TOTAL CELLS COUNTED % (AUTO) 100 %; WHITE BLOOD COUNT 7.8 10^3/uL (4.0-10.5)
[2019-03-14 09:47] LABS: APPEARANCE,URINE CLOUDY; BILIRUBIN,URINE NEGATIVE (NEGATIVE); COLOR,URINE YELLOW; GLUCOSE, URINE NEGATIVE (NEGATIVE); KETONES,URINE NEGATIVE (NEGATIVE); LEUKOCYTE ESTERASE,URINE LARGE (NEGATIVE); NITRITE,URINE NEGATIVE (NEGATIVE); PROTEIN,URINE 30 mg/dL (NEGATIVE); URINE SPECIFIC GRAVITY 1.019; UROBILINOGEN,URINE NEGATIVE mg/dL (<2.0)
[2019-03-14 10:19] LABS: URINE AMPHETAMINES SCREEN NEGATIVE; URINE BARBITURATES SCREEN NEGATIVE; URINE BENZODIAZEPINES SCREEN NEGATIVE; URINE COCAINE SCREEN NEGATIVE; URINE MARIJUANA (THC) SCREEN NEGATIVE; URINE METHADONE SCREEN NEGATIVE; URINE PHENCYCLIDINE SCREEN NEGATIVE
[2019-03-14] MEDS ORDERED: FENTANYL/BUPIVACAINE/NS/PF 300 MCG/150 ML RTUINJ EPI ONE (15:52)
[2019-03-14] MEDS ORDERED: PHENYLEPHRINE HCL INJ/PF 10 MG/1 ML SDV ONE (15:52)
[2019-03-14] MEDS ORDERED: EPHEDRINE SULFATE INJ 50 MG/1 ML AMPULE ONE (15:52)
[2019-03-14] MEDS ORDERED: BUPIVACAINE HCL 0.25 % INJ/PF (2.5 MG/1 ML) 30 ML VIAL ONE (15:52)
[2019-03-14] MEDS ORDERED: FENTANYL CITRATE INJ/PF 100 MCG/2 ML AMPUL ONE (15:52)
[2019-03-14] MEDS ORDERED: GLYCERIN/WITCH HAZEL LEAF 1 EACH MED..WIPE TP PRN (17:10)
[2019-03-14] MEDS ORDERED: PROMETHAZINE HCL INJ 25 MG/1 ML VIAL IV PRN (17:10)
[2019-03-14] MEDS ORDERED: DIPH/PERTUSS(ACELL)/TETANUS VAC/PF 0.5 ML SYR (>=10YO) IM PRN (17:10)
[2019-03-14] MEDS ORDERED: MAGNESIUM HYDROXIDE SUSP 30 ML UDCUP PO PRN (17:10)
[2019-03-14] MEDS ORDERED: ZOLPIDEM TARTRATE 5 MG TABLET PO PRN (17:10)
[2019-03-14] MEDS ORDERED: ACETAMINOPHEN WITH CODEINE #3 TABLET PO PRN ×2 (17:10)
[2019-03-14] MEDS ORDERED: PROMETHAZINE HCL 25 MG TABLET PO PRN (17:10)
[2019-03-14] MEDS ORDERED: BENZOCAINE/MENTHOL AEROSOL SPRAY 56 ML TOP PRN (17:10)
[2019-03-14] MEDS ORDERED: MEASLES,MUMPS&RUBELLA VACC/PF 0.5 ML VIAL SUBCUT PRN (17:10)
[2019-03-14] MEDS ORDERED: DIPHENHYDRAMINE HCL 25 MG CAPSULE PO PRN (17:10)
[2019-03-14] MEDS ORDERED: NA PHOS,M-B/NA PHOS,DI-BA (ADULT) 133 ML ENEMA PR PRN (17:10)
[2019-03-14] MEDS ORDERED: ACETAMINOPHEN 650 MG SUPP.RECT PR PRN (17:10)
[2019-03-14] MEDS ORDERED: DIBUCAINE 1% OINTMENT 28 GM TP PRN (17:10)
[2019-03-14] MEDS ORDERED: PSEUDOEPHEDRINE HCL 30 MG TABLET PO PRN (17:10)
[2019-03-14] MEDS ORDERED: PROMETHAZINE HCL 25 MG SUPP.RECT PR PRN (17:10)
[2019-03-14] MEDS ORDERED: MISOPROSTOL 0.2 MG TABLET PR ONE (17:37)
--- NOTE | 2019-03-14 18:29 | Delivery Summary ---
Del Sum A-C Datetime Report Generated by CPN: 03/14/2019 18:28 DELIVERY PERSONNEL DELIVERY PERSONNEL: [id number] Delivery Doctor:: Luna Myers MD Labor and Delivery Nurse:: Pooja Galindo RNaccounts payable associate Nurse:: Kendy Rogers RN Nursery Nurse:: Constance Golden RN Nursery Nurse:: Kimberley Anderson RN Hospital Nursing Assistant/ORNAMENTAL IRONWORKING SUPERVISOR: Ayse Palacios CST Hospital Nursing Assistant/ORNAMENTAL IRONWORKING SUPERVISOR: Carole Reddy CNA II Additional Personnel: : Lou Carballo, RNC MATERNAL INFORMATION Delivery Anesthesia: Epidural Medications After Delivery: Pitocin Bolus-Please Comment; Cytotec 1000mcg Per Rectum/Vagina Meds After Delivery Comment: Pitocin 20 units in 1000 ml NSS Estimated Blood Loss (ml): 250 Delivery QBL: 100 Maternal Complications: None LABOR SUMMARY EDC: 03/16/2019 00:00 No. Babies in Womb: 1 Attempted: No Labor Anesthesia: Epidural LABOR INFORMATION Reason for Induction: Other Reason for Induction- Other: Elective induction Onset of Labor: 03/14/2019 15:17 Complete Dilatation: 03/14/2019 16:52 Oxytocin: Induction Group B Beta Strep: negative Antibiotics # of Doses: 0 Antibiotics Time of Last Dose: n/a Name of Antibiotic Given: n/a Steroids Given: None Reason Steroids Not Administered: Not Applicable MEMBRANES Membranes Rupture Method: Artificial Rupture of Membranes: 03/14/2019 15:44 Length of Rupture (hr): 1.20 Amniotic Fluid Color: Clear Amniotic Fluid Amount: Large Amniotic Fluid Odor: Normal STAGES OF LABOR Stage 1 hr: 1 Stage 1 min: 35 Stage 2 hr: 0 Stage 2 min: 4 Stage 3 hr: 0 Stage 3 min: 4 Total Time in Labor hr: 1 Total Time in Labor min: 43 VAGINAL DELIVERY Episiotomy: None Laceration #1: None Laceration Extension #1: N/A Laceration Repair: Not Applicable Laceration Repair Note: old ob laceration noted, no new laceraction Sponge Count Correct: N/A; Vaginal Sweep Performed Sharps Count Correct: N/A CSECTION DELIVERY Primary Indication: N/A Secondary Indication: N/A CSection Incidence: N/A Labor: N/A Elective: N/A CSection Incision: N/A BABY A INFORMATION Infant Delivery Date/Time: 03/14/2019 16:56 Method of Delivery: Vaginal Born in Route : No : N/A Forceps: N/A Vacuum Extraction: N/A Shoulder Dystocia : No PRESENTATION/POSITION BABY A Presentation: Cephalic Cephalic Presentation: Vertex Vertex Position: Left Occipital Anterior Breech Presentation: N/A PLACENTA INFORMATION BABY A Placenta Delivery Time : 03/14/2019 17:00 Placenta Method of Delivery: Spontaneous Placenta Status: Delivered SCORES BABY A Heart Rate 1 min: >100 bpm Resp Effort 1 min: Good Cry Reflex Irritability 1 min: Cough or Sneeze or Pulls Away Muscle Tone 1 min: Active Motion Color 1 min: Blue/Pale Resuscitation Effort 1 min: Tactile Stimulation SCORE 1 MIN: 8 Heart Rate 5 min: >100 bpm Resp Effort 5 min: Good Cry Reflex Irritability 5 min: Cough or Sneeze or Pulls Away Muscle Tone 5 min: Active Motion Color 5 min: Body [place], Extremities Blue SCORE 5 MIN: 9 INFANT INFORMATION BABY A Gestational Age at Delivery: 39.5 Gestational Status: Full Term- 39- 40.6 Weeks Infant Outcome : Liveborn Condition : Stable Infant Sex: Male IDENTIFICATION BABY A Verification Date/Time: 03/14/2019 17:19 ID Band Number: [id number] Mother's Name Verified: Yes Infant RN Verifying : C. Joise RN; R [place] RN WEIGHT/LENGTH BABY A Birthweight (gm): 3731 Infant Weight (lb): 8 Infant Weight (oz): 4 Infant Length (in): 21.50 Infant Length (cm): 54.61 CORD INFORMATION BABY A No. Cord Vessels: 3 Nuchal Cord : Around Neck x1, Loose Cord Blood Taken: Yes-For Storage (Mom's Blood type +) Suction: None ASSESSMENT BABY A Complications: None Physical Findings at Delivery: Bruising Physical Findings- Other: minimal facial Infant Respirations: Appears Normal Skin to Skin: Yes Skin to Skin Time (min): 45 Retort Loader/ALS Called : No Infant Care By: T. Chantel, RN Transferred To: Remains with Mother BABY B INFORMATION : N/A SIGNATURES Signature: with User ID: [email or web address]
--- NOTE | 2019-03-14 19:52 | Admission Physical ---
Datetime Report Generated by CPN: 03/14/2019 19:51 CURRENT ADMISSION Chief Complaint: Scheduled Induction of Labor Indication for Induction: Other Admit Impression : Term, Intrauterine Admit Plan: Admit to Unit; Initiate Labor Induction Protocol ALLERGIES Medication Allergies: No Medication Allergies: No Known Allergies (03/14/2019) Food Allergies: n/a Environmental Allergies: n/a OBSTETRICAL HISTORY EDC: 03/16/2019 00:00 : 3 Para: 2 Term: 2 : 0 SAB: 0 IAB: 0 Ectopic: 0 Livin Cesareans: 0 VBACs: 0 Multiple Births: 0 Gestational Diabetes: No Rh Sensitization: No Incompetent Cervix: No NICK: No Infertility: No ART Treatment: No Uterine Anomaly: No IUGR: Yes Hx Previous C/S: No Macrosomia: Yes Hx Loss/Stillborn: No PIH: No Hx : No Placenta Previa/Abruption: No Depression/PP Depression: No PTL/PROM: No Post Hemorrhage: No Current Procedures: Ultrasound Obstetrical History Comments: G1- Full-term induction for postdates G2- 37 week IOL for IUGR G3- current ; no problems (Annotations: Data stored by CPN on behalf of user) SEE RECORDS Alcohol: No Marijuana : No Cocaine: No Other Illicit Drugs: No Cigarettes: Never Smoker. [id number] MEDICAL HISTORY Diabetes: No Blood Transfusion: No Pulmonary Disease (Asthma, TB): No Breast Disease: No Hypertension: No Presetter Operator Surgery: No Heart Disease: No Hosp/Surgery: No Autoimmune Disorder: No Anesthetic Complications: No Kidney Disease: No Abnormal Pap Smear: No Neuro/Epilepsy: No Psychiatric Disorders: No Other Medical Diseases: No Hepatitis/Liver Disease: No Significant Family History: No Varicosities/Phlebitis: No Trauma/Violence : No Thyroid Dysfunction: No Medical History Comments: gall stones, childbirth INFECTIOUS HISTORY Gonorrhea: No Genital Herpes: No Chlamydia: No Tuberculosis: No Syphilis: No Hepatitis: No HIV/AIDS Exposure: No Rash or Viral Illness: No HPV: No PHYSICAL EXAM General: Normal HEENT: Normal Neurologic: Normal Thyroid: Normal Heart: Normal Lungs: Normal Breast: Deferred Back: Normal Abdomen: Normal Genitourinary Exam: Normal Extremities: Normal DTRs: Normal Pelvic Type: Adequate VAGINAL EXAM Dilatation: 3 Effacement: 50 Station: -1 MEMBRANES Pooling: Negative Membranes: Intact FETUS A EGA: 39.5 Variability: Moderate 6-25bpm Decelerations: None FHR Category: Category I Presentation: Vertex Admit Comment: H and P done from memory after the delivery PLANS FOR LABOR AND DELIVERY Labor and Delivery: None Pain Management: Epidural Feeding Preference: Breast Benefit of Breast Feed Discussed: Yes Circumcision: Yes INFORMED CONSENT Informed Consent Obtained: Vaginal Delivery Signature: with User ID: [email or web address]
[2019-03-14] MEDS: IBUPROFEN 800 MG TABLET PO SCH (22:06)
[2019-03-14] MEDS: FAMOTIDINE 20 MG TABLET PO SCH (22:09)
[2019-03-14 22:11] LABS: ABSOLUTE LYMPHOCYTES (AUTO) 0.9 10^3/uL (0.5-4.7); ABSOLUTE MONOCYTES (AUTO) 0.5 10^3/uL (0.1-1.4); ABSOLUTE NEUT (AUTO) 9.7 10^3/uL (1.7-8.2); BASOPHILS % (AUTO) 0.2 % (0-2); HEMATOCRIT 31.4 % (36.0-47.0); HEMOGLOBIN 10.6 g/dL (12.0-15.5); LYMPHOCYTES % (AUTO) 7.7 % (13-45); MEAN CORPUSCULAR HEMOGLOBIN 28.7 pg (27.0-33.4); MEAN CORPUSCULAR HGB CONC 33.9 g/dL (32.0-36.0); MEAN CORPUSCULAR VOLUME 85 fl (80-97); MONOCYTES % (AUTO) 4.5 % (3-13); PLATELET COUNT 169 10^3/uL (150-450); RED CELL DISTRIBUTION WIDTH 14.6 % (11.5-14.0); SEGMENTED NEUTROPHILS % (AUTO) 87.6 % (42-78); TOTAL CELLS COUNTED % (AUTO) 100 %; WHITE BLOOD COUNT 11.1 10^3/uL (4.0-10.5)
[2019-03-15] MEDS: IBUPROFEN 800 MG TABLET PO SCH ×3 (06:57→21:09)
[2019-03-15 07:49] LABS: MEAN CORPUSCULAR HGB CONC 34.3 g/dL (32.0-36.0); MEAN CORPUSCULAR VOLUME 85 fl (80-97); PLATELET COUNT 174 10^3/uL (150-450); RED BLOOD COUNT 3.79 10^6/uL (3.72-5.28); RED CELL DISTRIBUTION WIDTH 14.6 % (11.5-14.0)
[2019-03-15] MEDS: DOCUSATE SODIUM 100 MG CAPSULE PO SCH ×3 (08:30→17:55)
[2019-03-15] MEDS: FERROUS SULFATE 325 MG TABLET PO SCH ×3 (08:30→17:55)
[2019-03-15] MEDS: PRENATAL VITAMIN W DHA CAPSULE PO SCH (09:58)
[2019-03-15] MEDS: FAMOTIDINE 20 MG TABLET PO SCH ×2 (09:59→21:10)
[2019-03-15] MEDS: SENNOSIDES/DOCUSATE 8.6-50 MG 1 EACH TABLET PO SCH (09:59)
--- NOTE | 2019-03-15 10:49 | PDOC PROGRESS REPORT ---
Subjective-OB Progress Note for:: 03/15/19 Subjective: Doing well, no c/o, , voiding, scant lochia Physical Exam (OB) Vital Signs: Temp Pulse Resp BP Pulse Ox 97.8 F 67 20 109/51 L 99 03/15/19 07:27 03/15/19 07:27 03/15/19 07:27 03/15/19 07:27 03/15/19 07:27 Intake & Output 03/14/19 03/15/19 03/16/19 06:59 06:59 06:59 Intake Total 423 Balance 423 Weight 84.8 kg - PIH/Pre-Eclampsia Clonus: Negative Epigastric Pain: No Visual Changes: No - Lochia Lochia Amount: Small 10-25 ml Lochia Color: Rubra/Red - Abdomen Hernia Present: No Fundal Description: Midline Fundal Height: u/u - u/2 Objective-Diagnostic Laboratory: 03/15/19 07:35 03/14/19 03/15/19 21:28 07:35 WBC 11.1 H 8.0 RBC 3.70 L 3.79 Hgb 10.6 L 11.0 L Hct 31.4 L 32.0 L MCV 85 85 MCH 28.7 29.0 MCHC 33.9 34.3 RDW 14.6 H 14.6 H Plt Count 169 174 Seg Neutrophils % 87.6 H Assessment and Plan(PN) - Assessment and Plan (1) IUGR (intrauterine growth restriction) Is this a current diagnosis for this admission?: Yes (2) Normal vaginal delivery Is this a current diagnosis for this admission?: Yes (3) Anemia Qualifiers: Anemia type: iron deficiency Is this a current diagnosis for this admission?: Yes - Time Spent with Patient Time with patient: Less than 15 minutes Medications reviewed and adjusted accordingly: Yes - Disposition Anticipated Discharge: Home Within: within 24 hours
[2019-03-16] MEDS: IBUPROFEN 800 MG TABLET PO SCH ×2 (05:27→14:42)
[2019-03-16 07:40] VITALS: BP 113/60
[2019-03-16] MEDS: FERROUS SULFATE 325 MG TABLET PO SCH (09:59)
[2019-03-16] MEDS: PRENATAL VITAMIN W DHA CAPSULE PO SCH (09:59)
[2019-03-16] MEDS: FAMOTIDINE 20 MG TABLET PO SCH (10:00)
[2019-03-16] MEDS: SENNOSIDES/DOCUSATE 8.6-50 MG 1 EACH TABLET PO SCH (10:00)
[2019-03-16] MEDS: DOCUSATE SODIUM 100 MG CAPSULE PO SCH (10:00)
--- NOTE | 2019-03-16 10:21 | PDOC PROGRESS REPORT ---
Subjective-OB Progress Note for:: 03/16/19 Subjective: Doing well, no c/o, eating, voiding, , ready to go home Physical Exam (OB) Vital Signs: Temp Pulse Resp BP Pulse Ox 97.9 F 58 L 18 113/60 98 03/16/19 07:53 03/16/19 07:53 03/16/19 07:53 03/16/19 07:17 03/16/19 07:53 Intake & Output 03/15/19 03/16/19 03/17/19 06:59 06:59 06:59 Intake Total 423 800 Balance 423 800 Weight 84.8 kg - PIH/Pre-Eclampsia Clonus: Negative Headache: Absent Epigastric Pain: No Visual Changes: No - Lochia Lochia Amount: Scant < 10 ml Lochia Color: Rubra/Red - Abdomen Description: Soft, Round Hernia Present: No Fundal Description: Firm, Midline Fundal Height: u/u - u/2 Objective-Diagnostic Laboratory: 03/15/19 07:35 Assessment and Plan(PN) - Assessment and Plan (1) IUGR (intrauterine growth restriction) Is this a current diagnosis for this admission?: Yes (2) Normal vaginal delivery Is this a current diagnosis for this admission?: Yes (3) Anemia Qualifiers: Anemia type: iron deficiency Is this a current diagnosis for this admission?: Yes - Time Spent with Patient Time with patient: Less than 15 minutes Medications reviewed and adjusted accordingly: Yes - Disposition Anticipated Discharge: Home Within: within 24 hours
--- NOTE | 2019-03-16 10:25 | PDOC DISCHARGE SUMMARY ---
Impression - Admit/DC Date/PCP Admission Date/Primary Care Provider: 03/14/19 07:16 SANJEEV EDWARDS MD Discharge Date: 03/16/19 - Discharge Diagnosis (1) IUGR (intrauterine growth restriction) Is this a current diagnosis for this admission?: Yes (2) Normal vaginal delivery Is this a current diagnosis for this admission?: Yes (3) Anemia Is this a current diagnosis for this admission?: Yes - Additional Information Resuscitation Status: Full Code Discharge Diet: As Tolerated, Regular Discharge Activity: Activity As Tolerated, Pelvic Rest Referrals: SANJEEV EDWARDS MD [Primary Care Provider] - (wha 4 weeks) Home Medications: No122/Iron/Folic Acid [ Multi Tablet] 1 tab PO DAILY 05/23/16 HPI Gestational Age: 39.5 Reason(s) for Admission: Induction of Labor Admission Note: elective Procedures: NST, Ultrasound Intrapartum Procedure(s): Spontaneous Vaginal Delivery Hospital Course Hospital Course: routine Results Laboratory Results: WBC 8.0 10^3/uL (4.0-10.5) 03/15/19 07:35 RBC 3.79 10^6/uL (3.72-5.28) 03/15/19 07:35 Hgb 11.0 g/dL (12.0-15.5) L 03/15/19 07:35 Hct 32.0 % (36.0-47.0) L 03/15/19 07:35 MCV 85 fl (80-97) 03/15/19 07:35 MCH 29.0 pg (27.0-33.4) 03/15/19 07:35 MCHC 34.3 g/dL (32.0-36.0) 03/15/19 07:35 RDW 14.6 % (11.5-14.0) H 03/15/19 07:35 Plt Count 174 10^3/uL (150-450) 03/15/19 07:35 Lymph % (Auto) 7.7 % (13-45) L 03/14/19 21:28 Keith % (Auto) 4.5 % (3-13) 03/14/19 21:28 Eos % (Auto) 0.0 % (0-6) 03/14/19 21:28 Baso % (Auto) 0.2 % (0-2) 03/14/19 21:28 Absolute Neuts (auto) 9.7 10^3/uL (1.7-8.2) H 03/14/19 21:28 Absolute Lymphs (auto) 0.9 10^3/uL (0.5-4.7) 03/14/19 21:28 Absolute Monos (auto) 0.5 10^3/uL (0.1-1.4) 03/14/19 21:28 Absolute Eos (auto) 0.0 10^3/uL (0.0-0.6) 03/14/19 21:28 Absolute Basos (auto) 0.0 10^3/uL (0.0-0.2) 03/14/19 21:28 Seg Neutrophils % 87.6 % (42-78) H 03/14/19 21:28 Urine Color YELLOW 03/14/19 07:15 Urine Appearance CLOUDY 03/14/19 07:15 Urine pH 6.0 (5.0-9.0) 03/14/19 07:15 Ur Specific [place] 1.019 03/14/19 07:15 Urine Protein 30 mg/dL (NEGATIVE) H 03/14/19 07:15 Urine Glucose (UA) NEGATIVE mg/dL (NEGATIVE) 03/14/19 07:15 Urine Ketones NEGATIVE mg/dL (NEGATIVE) 03/14/19 07:15 Urine Blood NEGATIVE (NEGATIVE) 03/14/19 07:15 Urine Nitrite NEGATIVE (NEGATIVE) 03/14/19 07:15 Urine Bilirubin NEGATIVE (NEGATIVE) 03/14/19 07:15 Urine Urobilinogen NEGATIVE mg/dL (<2.0) 03/14/19 07:15 Ur Leukocyte Esterase LARGE (NEGATIVE) H 03/14/19 07:15 Urine Ascorbic Acid NEGATIVE (NEGATIVE) 03/14/19 07:15 Urine Opiates Screen NEGATIVE 03/14/19 07:15 Urine Methadone Screen NEGATIVE 03/14/19 07:15 Ur Barbiturates Screen NEGATIVE 03/14/19 07:15 Ur Phencyclidine Scrn NEGATIVE 03/14/19 07:15 Ur Amphetamines Screen NEGATIVE 03/14/19 07:15 U Benzodiazepines Scrn NEGATIVE 03/14/19 07:15 Urine Cocaine Screen NEGATIVE 03/14/19 07:15 U Marijuana (THC) Screen NEGATIVE 03/14/19 07:15 Blood Type A POSITIVE 03/14/19 09:13 Antibody Screen NEGATIVE 03/14/19 09:13 Plan Health Concerns: routine Plan of Treatment: continue PNV's Goals: no complications Time Spent: Less than 30 Minutes
== END 2019-03-16 15:58 | disposition home or self-care (01) | DRG 807 ==
LOC: LR 07:16 → 2S 20:44
PROVIDERS: ADMIT Obstetrics & Gynecology; ATTEND Obstetrics & Gynecology
PROC: 10E0XZZ Delivery of Products of Conception, External Approach (ICD-10-PCS; principal; 2019-03-14)
PROC: 3E033VJ Introduction of Other Hormone into Peripheral Vein, Percutaneous Approach (ICD-10-PCS; 2019-03-14)
PROC: 10907ZC Drainage of Amniotic Fluid, Therapeutic from Products of Conception, Via Natural or Artificial Opening (ICD-10-PCS; 2019-03-14)
DX: O36.5930 Maternal care for other known or suspected poor fetal growth, third trimester, not applicable or unspecified (principal); Z37.0 Single live birth; O99.02 Anemia complicating childbirth; D50.9 Iron deficiency anemia, unspecified; O69.81X0 Labor and delivery complicated by cord around neck, without compression, not applicable or unspecified; Z3A.39 39 weeks gestation of pregnancy
CPT/HCPCS: 36415; 80307; 81005; 85025; 85027; 86592; 86850; 86900; 86901; J2370; J2590; J3010; J3490